=== PATIENT | female | born 1975 | race Caucasian/White ===

== ENCOUNTER 2017-12-07 11:33 | Outpatient (REF) | payer MEDICAID, SELFPAY ==
[2017-12-07 20:36] LABS: Hemoglobin A1C 5.1 % (4.5-6.2)
[2017-12-07 20:37] LABS: ALT 25 U/L (12-78); AST 25 U/L (15-37); Albumin 3.8 g/dL (3.4-5.0); Alkaline Phosphatase 67 U/L (46-116); Anion Gap 7.7 mmol/L (3-11); BUN 12 mg/dL (7-18); Bilirubin, Total 0.6 mg/dL (0.2-1.0); CO2 28.3 mmol/L (21.0-32.0); CREATININE 0.77 mg/dL (0.55-1.02); Calcium 8.6 mg/dL (8.5-10.1); Chloride 105 mmol/L (98-107); Glucose 83 mg/dL (70-100); Potassium 4.5 mmol/L (3.5-5.1); Sodium 141 mmol/L (136-145); TSH 1.27 uIU/mL (0.358-3.74); Total Protein 6.7 g/dL (6.4-8.2)
== END 2017-12-07 11:53 ==
LOC: NCHCN 11:33
PROVIDERS: PCP Family Medicine; Visit Provider Family Medicine
DX: F17.210 Nicotine dependence, cigarettes, uncomplicated (principal); E03.8 Other specified hypothyroidism; E66.3 Overweight
CPT/HCPCS: 80053; 83036; 84443

== ENCOUNTER 2019-09-05 21:52 | Outpatient (REF) | payer MEDICAID, SELFPAY ==
[2019-09-05 21:12] LABS: Hemoglobin A1C 5.3 % (3.8-5.6)
[2019-09-05 21:27] LABS: ALT 43 U/L (14-59); AST 28 U/L (15-37); Albumin 3.8 g/dL (3.4-5.0); Alkaline Phosphatase 70 U/L (46-116); Anion Gap 10.3 mmol/L (3-11); BUN 14 mg/dL (7-18); Bilirubin, Total 0.4 mg/dL (0.2-1.0); CO2 25.7 mmol/L (21.0-32.0); CREATININE 0.81 mg/dL (0.55-1.02); Calcium 8.8 mg/dL (8.5-10.1); Chloride 106 mmol/L (98-107); Glucose 85 mg/dL (74-106); Sodium 142 mmol/L (136-145); TSH 3.94 uIU/mL (0.36-3.74); Total Protein 7.1 g/dL (6.4-8.2)
== END 2019-09-05 22:12 ==
LOC: NCHCN 21:52
PROVIDERS: PCP Family Medicine; Visit Provider Family Medicine
DX: E03.8 Other specified hypothyroidism (principal); E66.3 Overweight
CPT/HCPCS: 80053; 83036; 84443

== ENCOUNTER 2019-12-03 22:44 | Outpatient (REF) | payer MEDICAID, SELFPAY ==
[2019-12-06 16:33] LABS: Patient Race White; SARS-CoV-2 RNA Undetected (Undetected); SARS-CoV-2 Specimen Source Nasopharynx
== END 2019-12-03 23:04 ==
LOC: NCHCN 22:44
PROVIDERS: PCP Family Medicine; Visit Provider Family Medicine
DX: R50.9 Fever, unspecified (principal)
CPT/HCPCS: U0003

== ENCOUNTER 2020-02-04 12:33 | Outpatient (REF) | payer MEDICAID, SELFPAY ==
[2020-02-04 21:28] LABS: TSH 0.65 uIU/mL (0.36-3.74)
== END 2020-02-04 12:53 ==
LOC: NCHCN 12:33
PROVIDERS: PCP Family Medicine; Visit Provider Family Medicine
DX: E03.8 Other specified hypothyroidism (principal)
CPT/HCPCS: 84443

== ENCOUNTER 2020-12-22 15:09 | Outpatient (REF) | payer MEDICAID, SELFPAY ==
[2020-12-22 22:26] LABS: Abs Immature Grans 0.03 10^3/uL (0.0-0.06); Absolute Basophil Count 0.08 10^3/uL (0.0-0.2); Absolute Eosinophil Count 0.23 10^3/uL (0.0-0.7); Absolute Lymphocyte Count 2.28 10^3/uL (1.2-3.4); Absolute Monocyte Count 0.71 10^3/uL (0.1-0.8); Absolute Neutrophil Count 7.17 10^3/uL (1.2-6.7); Basophils % 0.8; Eosinophils % 2.2; HGB 13.1 g/dL (11.2-15.7); Immature Grans % 0.3; Lymphocytes % 21.7; MCH 29.8 pg (27.0-33.0); MCV 93.4 fL (80-95); MPV 10.4 fL (8.0-11.0); Monocytes % 6.8; Neutrophils % 68.2; Nucleated RBC 0 %; Platelet Count 286 10^3/uL (130-400); RBC 4.39 10^6/uL (3.93-5.22); RDW 13.3 % (11.7-14.6); RDW-SD 45.7 fL
[2020-12-22 23:05] LABS: ALT 51 U/L (14-59); AST 23 U/L (15-37); Albumin 4.1 g/dL (3.4-5.0); Alkaline Phosphatase 75 U/L (46-116); Anion Gap 6.1 mmol/L (3-11); BUN 13 mg/dL (7-18); Bilirubin, Total 0.3 mg/dL (0.2-1.0); CO2 29.9 mmol/L (21.0-32.0); CREATININE 0.9 mg/dL (0.55-1.02); Calcium 9.3 mg/dL (8.5-10.1); Chloride 107 mmol/L (98-107); Glucose 84 mg/dL (74-106); Potassium 4.4 mmol/L (3.5-5.1); Sodium 143 mmol/L (136-145); Total Protein 7.8 g/dL (6.4-8.2)
== END 2020-12-22 15:10 | disposition home or self-care (01) ==
LOC: NCHCN 15:09
PROVIDERS: PCP Family Medicine; Visit Provider Family Medicine
DX: R07.89 Other chest pain (principal); E03.9 Hypothyroidism, unspecified; E66.9 Obesity, unspecified
CPT/HCPCS: 80053; 84443; 85025

== ENCOUNTER 2021-11-25 12:24 | Outpatient (REF) | payer MEDICAID, SELFPAY ==
[2021-11-25 15:25] LABS: Hemoglobin A1C 5.3 % (<5.7)
[2021-11-25 15:41] LABS: ALT 26 U/L (14-59); AST 28 U/L (15-37); Albumin 3.9 g/dL (3.4-5.0); Alkaline Phosphatase 99 U/L (46-116); Anion Gap 6.5 mmol/L (3-11); BUN 27 mg/dL (7-18); Bilirubin, Total 0.4 mg/dL (0.2-1.0); CO2 30.5 mmol/L (21.0-32.0); CREATININE 0.8 mg/dL (0.55-1.02); Calcium 9.7 mg/dL (8.5-10.1); Calculated LDL 150 mg/dL (<100); Chloride 103 mmol/L (98-107); Cholesterol 248 mg/dL (<200); Estimated GFR 93.12 (mL/min/1.73m2); Glucose 99 mg/dL (74-106); HDL Cholesterol 83 mg/dL (40-60); Potassium 4.3 mmol/L (3.5-5.1); Sodium 140 mmol/L (136-145); TSH 0.67 uIU/mL (0.36-3.74); Total Protein 7.8 g/dL (6.4-8.2); Triglyceride 75 mg/dL (<150)
== END 2021-11-25 12:25 | disposition home or self-care (01) ==
LOC: NCHCN 12:24
PROVIDERS: PCP Family Medicine; Visit Provider Family Medicine
DX: E03.8 Other specified hypothyroidism (principal); E66.9 Obesity, unspecified
CPT/HCPCS: 80053; 80061; 83036; 84443

== ENCOUNTER 2022-11-22 12:47 | Outpatient (REF) | payer MEDICAID, SELFPAY ==
[2022-11-22 16:11] LABS: ALT 52 U/L (14-59); AST 27 U/L (15-37); Albumin 3.9 g/dL (3.4-5.0); Alkaline Phosphatase 69 U/L (46-116); Anion Gap 9.1 mmol/L (3-11); BUN 14 mg/dL (7-18); Bilirubin, Total 0.8 mg/dL (0.2-1.0); CO2 26.9 mmol/L (21.0-32.0); CREATININE 0.9 mg/dL (0.55-1.02); Calcium 9.2 mg/dL (8.5-10.1); Chloride 100 mmol/L (98-107); Estimated GFR 80.34 (mL/min/1.73m2); Glucose 96 mg/dL (74-106); Potassium 4.1 mmol/L (3.5-5.1); Sodium 136 mmol/L (136-145); TSH 9.27 uIU/mL (0.36-3.74); Total Protein 7.6 g/dL (6.4-8.2)
[2022-11-22 16:54] LABS: Hemoglobin A1C 5.5 % (<5.7)
== END 2022-11-22 12:48 | disposition home or self-care (01) ==
LOC: NCHCN 12:47
PROVIDERS: PCP Family Medicine; Visit Provider Family Medicine
DX: E03.8 Other specified hypothyroidism (principal); E66.8 Other obesity; Z13.1 Encounter for screening for diabetes mellitus
CPT/HCPCS: 80053; 83036; 84443

== ENCOUNTER 2023-01-17 13:31 | Outpatient (REF) | payer MEDICAID, SELFPAY ==
[2023-01-17 15:10] LABS: Calculated LDL 130 mg/dL (<100); Cholesterol 194 mg/dL (<200); HDL Cholesterol 46 mg/dL (40-60); TSH 2.88 uIU/mL (0.36-3.74); Triglyceride 91 mg/dL (<150)
== END 2023-01-17 13:32 | disposition home or self-care (01) ==
LOC: NCHCN 13:31
PROVIDERS: PCP Family Medicine; Visit Provider Family Medicine
DX: E03.8 Other specified hypothyroidism (principal); E66.9 Obesity, unspecified; Z13.220 Encounter for screening for lipoid disorders
CPT/HCPCS: 80061; 84443

== ENCOUNTER 2023-01-24 16:55 | Outpatient (REF) | payer MEDICAID, SELFPAY ==
[2023-01-24 20:53] LABS: HCT 40.7 % (36.0-46.0); HGB 13.1 g/dL (11.2-15.7); MCH 30.5 pg (27.0-33.0); MCHC 32.2 % (32.0-36.0); MCV 95 fL (80-95); Platelet Count 248 10^3/uL (130-400); RDW 13.5 % (11.7-14.6); RDW-SD 47.3 fL; WBC 9.47 10^3/uL (4.4-10.8)
[2023-01-24 21:30] LABS: Hemoglobin A1C 5.5 % (<5.7)
[2023-01-24 21:33] LABS: ALT 45 U/L (14-59); AST 29 U/L (15-37); Alkaline Phosphatase 69 U/L (46-116); Anion Gap 10.8 mmol/L (3-11); BUN 18 mg/dL (7-18); Bilirubin, Total 0.6 mg/dL (0.2-1.0); CO2 24.2 mmol/L (21.0-32.0); CREATININE 0.8 mg/dL (0.55-1.02); Calcium 9.4 mg/dL (8.5-10.1); Chloride 104 mmol/L (98-107); Estimated GFR 92.54 (mL/min/1.73m2); Glucose 79 mg/dL (74-106); Potassium 4.2 mmol/L (3.5-5.1); Sodium 139 mmol/L (136-145); Vitamin B12 459 pg/mL (193-986)
== END 2023-01-24 16:56 | disposition home or self-care (01) ==
LOC: NCHCN 16:55
PROVIDERS: PCP Family Medicine; Visit Provider Family Medicine
DX: G62.9 Polyneuropathy, unspecified (principal); E03.8 Other specified hypothyroidism; E78.5 Hyperlipidemia, unspecified
CPT/HCPCS: 80053; 85027; 82607; 83036

== ENCOUNTER 2023-12-05 14:50 | Outpatient (REF) | payer MEDICAID, SELFPAY ==
--- NOTE | 2023-12-05 10:15 | PAPFT_PTH ---
PATIENT: Jennifer Jimenez LOC: [facility] U#:[id number] AGE/SX: 48/F ROOM: RE12/05/[address]: Camille Aldrich : 1975 BED: DIS: 12/05/2023 SPEC #: [id number] RECD: 12/05/23 18:14 STATUS: TYESHAKelsea REQ #: [id number] REMI: 12/05/23 10:[address]: Camille Aldrich DEPT: [facility], [facility] Cytology RECD BY: Jazmine Hernandez ENTERED: 12/05/23 18:15 SP TYPE: PAPFT OTHR DR: Judie Potter Tissues: 1 - CX/ENDOCX FOR PAP SMEARS Procedures: PAP THIN PREP/[facility] Screening HPV DNA PROBE Comments: [id number] (HPV 16 & 18/45)
--- OUTSIDE RECORDS SUMMARY | 2023-12-05 14:52 | XMS_ITS | Clinical Summary ---
Author Organization [facility] [place] [address] Care Team Providers Care Sugar Plantation Manager Name Role Phone Lorene Aldrich MD Primary Care Provider Allergies Active Allergy Reactions Criticality Noted Date Comments Adhesive Tape Other (See Comments) Medium Use paper tape Carrot Hives High Warfarin Medium 06/08/2018 Latex 06/11/2018 Latex, Natural Rubber Hives 02/09/2011 Medications Medication Sig Dispensed Refills Start Date End Date Status SUBOXONE 8-2 mg Film 12 mg. 0 06/02/2015 Active PROAIR HFA 90 mcg/actuation HFA Aerosol Inhaler 0 05/29/2015 Active aspirin 81 mg Tablet, Delayed Release (E.C.) Take 81 mg by mouth daily. Active PULMICORT FLEXHALER 180 mcg/actuation Aerosol Powdr Breath Activated INHALE 1 PUFFS BY MOUTH TWICE DAILY. 0 05/17/2018 Active fluticasone propionate (FLONASE) 50 mcg/actuation [place], Suspension SHAKE LQ AND U 2 SPRAYS IEN D 09/02/2019 Active cetirizine (ZyrTEC) 10 mg Tablet TK 1 T PO D FOR ALLERGIES 07/30/2019 Active levothyroxine (SYNTHROID) 137 mcg Tablet TK 1 T PO D 09/10/2019 Active Advair HFA 230-21 mcg/actuation inhaler (HFA) Inhale 2 puffs into the lungs 2 times daily. Active montelukast (Singulair) 10 mg tablet Take 10 mg by mouth nightly. Active naproxen sodium (ALEVE) 220 mg Capsule Take 440 mg by mouth daily. Active pregabalin (Lyrica) 100 mg capsule Take 1 capsule by mouth 2 times daily. 60 capsule 3 08/17/2023 Active Active Problems Problem Noted Date Diagnosed Date Acute exacerbation of chronic obstructive airway s disease 01/16/2016 Recurrent deep vein thrombosis (DVT) 09/16/2015 S/P IVC filter 09/16/2015 Tobacco use 09/16/2015 Grave's disease-treated 03/24/2009 Hypothyroidism-after 131 dye 03/24/2009 Encounters Date Type Department Care Team Description 11/19/2023 Travel from Last 3 Months Immunizations Name Administration Dates Next Due Influenza Vaccine, Whole 12/18/2008 Social History Tobacco Use Types Packs/Day Years Used Date Smoking Tobacco: Every Day Cigarettes 1.5 29 Smokeless Tobacco: Never Tobacco Cessation:Ready to Q uit: No; Counseling Given: No Alcohol Use Standard Drinks/Week Comments No 0 (1 standard drink = 0.6 oz pur e alcohol) Sex and Gender Information Value Date Recorded Sex Assigned at Female 11/19/2023 10:16 AM EDT Gender Identity Female 11/19/2023 10:16 AM EDT Sexual Orientation Not on file Last Filed Vital Signs Vital Sign Reading Time Taken Comments Blood Pressure 123/62 08/17/2023 9:00 AM EDT Pulse 97 08/17/2023 9:00 AM EDT Temperature 36.5 ??C (97.7 ??F) 06/20/2018 10:31 AM E DT Respiratory Rate 20 06/20/2018 10:31 AM EDT Oxygen Saturation 96% 06/20/2018 10:31 AM EDT Inhaled Oxygen Concentration - - Weight 95.3 kg (210 lb 3.2 oz) 08/17/2023 9:00 A M EDT Height 160.7 cm (5' 3.25) 08/17/2023 9:00 AM ED T Body Mass Index 36.94 08/17/2023 9:00 AM EDT Plan of Treatment Health Maintenance Due Date Last Done Comments CT Colonography 1975 Colonoscopy 1977 Colorectal Cancer Screening 1975 FIT DNA 1977 FIT 1975 Sigmoidoscopy (10 year) with FIT yearly 1975 Sigmoidoscopy 1975 Pneumococcal Vaccine: At-Ris k 5-64yrs (1 of 2 - PCV) 07/17/1983 Lipid Screening 07/17/1995 Hepatitis B vaccine (0-59 yrs) (1) 1996 Tdap adult 1996 Tetanus vaccine 1996 HPV test 07/17/2007 PAP Smear 07/17/2007 Breast Cancer Share Decision Needed 2017 Breast Cancer screening 2017 Covid-19 Vaccine ( - season) 2023 Influenza (Flu) vaccine (1 o f 1 - Influenza standard series) 11/19/2023 12/18/2008 Diabetes Screening (HgbA1C or Glucose) 08/16/2026, 08/17/2023 HIV screen Completed 08/17/2023 Hepatitis C Screening Completed 08/17/2023 Procedures Procedure Name Priority Date/Time Associated Diagnosis Comments HIV SCREEN, 4TH GENERATION ([facility]/CGP/APD/NLH) Routine 08/17/2023 10:53 AM EDT Peripheral polyneuropathy HEPATITIS C ANTIBODY Routine 08/17/2023 10:53 AM EDT Peripheral polyneuropathy COMPREHENSIVE METABOLIC PANEL Routine 08/17/2023 10:53 AM EDT Peripheral polyneuropathy from Last 3 Months or Most Recently Relevant to Health Maintenance Results * Hepatitis C Antibody (08/17/2023 10:53 AM EDT) Hepatitis C Antibody Negative Negative [facility] Blood 08/17/2023 10:5 3 AM EDT 08/17/2023 10:59 AM EDT Narrative Resulting Agency Comment Spec In Lab Jamison Fuentes MD CHEMISTRY ORDERABLES [facility] [place] [address] * HIV Screen, 4th Generation ([facility]/CGP/APD/NLH) (08/17/2023 10:53 AM EDT) HIV Ab/Ag Screen Negative Negative [facility] Comment: This 4th Generation HIV test screens for the presence of the HIV-1 p24 antigen as well as antibodies reactive against HIV-1 and HIV-2. A negative screen does not rule out an acute HIV infection. If acute HIV infection is suspected, testing should be repeated in 2 - 3 weeks or HIV nucleic acid testing performed. HIV Comment Low Risk of HIV Infection [facility] Blood 08/17/2023 10:5 3 AM EDT 08/17/2023 10:59 AM EDT Narrative Resulting Agency Comment Spec In Lab Jamison Fuentes MD CHEMISTRY ORDERABLES [facility] [place] [address] * (ABNORMAL) Comprehensive metabolic panel (non-fasting) (08/17/2023 10:53 AM EDT) Glucose 93 65 - 199 mg/dL [facility] Comment:Diabetes: >=200 mg/d L plus symptoms Blood Urea Nitrogen 16 8 - 18 mg/dL [facility] Creatinine 0.67(L) 0.70 - 1.20 mg/dL [facility] Sodium 139 135 - 145 mmol/L [facility] Potassium 3.9 3.5 - 5.0 mmol/L [facility] Comment: Please note: ??Patients with WBC >100,000 may have falsely elevated Potassium levels. ??For accurate Potassium quantification in these patients send serum separator tube (gold top) for subsequent determinations. ??Contact the Clinical Chemistry Laboratory if there are any questions. Chloride 106 98 - 107 mmol/L [facility] Carbon Dioxide 22 22 - 31 mmol/L [facility] Anion Gap 11 5 - 15 mmol/L [facility] Calcium 9.3 8.5 - 10.5 mg/dL [facility] Protein, Total 7.0 6.1 - 8.0 g/dL [facility] Albumin 4.5 3.2 - 5.2 g/dL [facility] Aspartate Aminotransferase 26 0 - 30 unit/L [facility] Alanine Aminotransferase 36(H) 0 - 30 unit/L [facility] Alkaline Phosphatase 71 35 - 105 unit/L [facility] Bilirubin, Total 0.6 0.2 - 1.3 mg/dL [facility] Est Glomerular Filtration Rate 109 >=60 mL/min/1. 73 m?? [facility] Comment: This patient's estimated GFR was calculated using the 2020 CKD-EPI equation. The estimated GFR can vary from the measured GFR by up to 30% in the absence of rapidly changing kidney function. Assessment of the estimated GFR is not appropriate when creatinine concentrations are rapidly changing. For clinical situations in which a more precise estimate of GFR is necessary, consider alternative methods of GFR estimation such as a 24-hour urine creatinine clearance. Assignment of CKD stage 1-5 for patients with an eGFR near the transition point between stages may be based on clinical assessment of muscle mass and symptoms in addition to eGFR. Blood 08/17/2023 10:5 3 AM EDT 08/17/2023 10:59 AM EDT Narrative Resulting Agency Comment Spec In Lab Jamison Fuentes MD CHEMISTRY ORDERABLES [facility] [place] [address] from Last 3 Months or Most Recently Relevant to Health Maintenance Advance Directives Documents on File Type Date Recorded Patient Banana Carrier Expl anation Advance Directives and Livin g Will 05/19/2010 10:25 AM Care Teams Sugar Plantation Manager Relationship Specialty Start Date End Date Lorene Aldrich MD [address] [place] [address] PCP - General Family Medicine 06/12/15
--- OUTSIDE RECORDS SUMMARY | 2023-12-05 14:52 | XMS_ITS | Encounter Summary ---
[place] [address] Care Team Providers Care Banking Representative Name Role Phone Lorene Aldrich MD Primary Care Provider Encounter Details Date Type Department Care Team (Latest Contact Info) Description 08/17/2023 Travel Social History Tobacco Use Types Packs/Day Years Used Date Smoking Tobacco: Every Day Cigarettes 1.5 29 Smokeless Tobacco: Never Alcohol Use Standard Drinks/Week Comments No 0 (1 standard drink = 0.6 oz pur e alcohol) Sex and Gender Information Value Date Recorded Sex Assigned at Female 11/19/2023 10:16 AM EDT Gender Identity Female 11/19/2023 10:16 AM EDT Sexual Orientation Not on file documented as of this encounter Plan of Treatment Not on file documented as of this encounter Visit Diagnoses Not on filedocumented in this encounter Care Teams Banking Representative Relationship Specialty Start Date End Date Lorene Aldrich MD [address] [place] [address] PCP - General Family Medicine 06/12/15 documented as of this encounter
--- OUTSIDE RECORDS SUMMARY | 2023-12-05 14:52 | XMS_ITS ---
Author Organization Unknown Address [address] [place] [phone] Phone Care Team Providers Care Feather Separator Name Role Phone WAYLON Roy Attending Unavailable Results CT CHEST WO CONTRAST - Compl eted: 01/06/2022 08:19 [facility] [place], [place] [address] PACS RAG INSPECTOR REPORT Patient Name: CHANG WORTHY MRN: Sex: : Age: [id number] F [id number] Account: Accession: Admit: StayType: [id number] 01/06/2022 O/P Ordered: Order ID: Entered Order: Ordering Provider: 01/06/2022 08:02 [id number] NLS PUMA CONNORS Completed: Tech Completed: Resulted DTTM: 01/06/2022 08:19 JJ 01/06/2022 09:46 Study Description: CT CHEST WO CONTRAST Study Reason: PULMONARY NODULE TECHNIQUE: Multi planar reconstructions were performed. CONTRAST MATERIAL None COMPARISON: No exams were available for comparison FINDINGS: CHEST: LUNGS: There are no pulmonary infiltrates no pleural effusions. There are no significant pulmonary nodules evident. There are no significant focal findings in the trachea and mainstem bronchi. No bronchiectasis. MEDIASTINUM: There is no hilar nor mediastinal adenopathy. Visualized thyroid is diminutive. CARDIAC: Heart size is normal. There is no pericardial effusion.Caliber of the thoracic aorta is within normal limits. VISUALIZED UPPER ABDOMEN: No adrenal masses. No splenomegaly. There is an IVC filter noted, only partially included in the [id number]-gu-axbd of this chest. OSSEOUS: No significant osseous lesions. IMPRESSION: 1. No significant pulmonary findings. No pleural effusions. 2. No intrathoracic adenopathy. 3. IVC filter incidentally noted Report Digitally Signed by Daniel Bryant on 01/06/2022 09:46 AM EDT Social History Type Status Start Date End Date Code Code Syst em Smoking History Current every day smoker [id number] SNOMED CT Sex Female Hospital Discharge Instructions Should you have any questions prior to discharge, please contact a member of your healthcare team. If you have left the hospital and have any questions, please contact your primary care physician. Reason For Referral No Data Found Problems Problem Start Date Resolved Date Status Code Code System ASTHMA 02/28/2021 resolved [id number] SNOMED-CT COPD 02/28/2021 resolved [id number] SNOMED-CT Allergies and Adverse Reactions Allergy Substance Reaction Severity Start Date Concern Status Co de Code System LATEX Active Carrots Active Plan of Treatment CT CHEST W/O CONTRAST 01/06/2022 Encounters Encounter Diagnosis Start Date Code Code Sys tem Solitary pulmonary nodule 01/06/2022 SN OMED-CT Personal Care Team Section Performer Name Performer Role Active Date Inactive Da te
--- OUTSIDE RECORDS SUMMARY | 2023-12-05 14:52 | XMS_ITS ---
Author Organization Unknown Address [address] [place] [phone] Phone Care Team Providers Care Child Support Investigator Name Role Phone RAYA GARCIA Registered Nurse Unavailable JOAQUIM Knight Attending Unavailable [facility] Unavailable WAYLON Roy Primary Unavailable UNLISTED PROVIDER - REQUESTED Xhandoff Un available Results CBC W/ DIFFERENTIAL* - Colle ct Date/Time: 02/28/2021 20:29 [facility] ID: [id number] [address] [place], [place], [address] LOINC: 07609-0 Test Value Unit Reference Range Code Code System Flag WBC 9.54 th/cmm L=5.00 H=10.00 6690-2 LOINC NEUT % 68.7 % L=40.0 H=80.0 LYMPH % 22.0 % L=10.0 H=50.0 MONO % 6.2 % L=2.0 H=12.0 77396-7 LOINC EOS % 2.1 % L=0.0 H=8.0 BASO % 0.8 % L=0.0 H=3.0 IG % 0.2 % L=0.0 H=1.1 2514-8 LOINC NRBC % 0.0 % L=0.0 H=0.0 77446-0 LOINC NEUT abs count 6.6 th/cmm L=1.6 H=8.4 751-8 LOINC LYMPH abs count 2.1 th/cmm L=1.5 H=4.0 731-0 LOINC MONO abs count 0.6 th/cmm L=0.2 H=1.0 742-7 LOINC EOS abs count 0.2 th/cmm L=0.0 H=0.5 711-2 LOINC BASO abs count 0.1 th/cmm L=0.0 H=0.2 704-7 LOINC IG abs count 0.0 th/cmm L=0.0 H=0.1 27876-4 LOINC NRBC abs count 0.0 mil/cmm L=0.0 H=0.0 41515-3 LOINC RBC 4.58 mil/cmm L=3.90 H=5.40 789-8 LOINC HEMOGLOBIN 13.6 gm/dL L=12.0 H=16.0 718-7 LOINC HEMATOCRIT 42 % L=37 H=47 4544-3 LOINC MCV 92 fL L=82 H=92 787-2 LOINC MCH 29.7 pg L=27.0 H=31.0 785-6 LOINC MCHC 32.2 % L=32.0 H=36.0 786-4 LOINC RDW-SD 45.7 fL L=39.0 H=49.0 788-0 LOINC PLATELET COUNT 263 th/cmm L=150 H=450 777-3 LOINC BASIC METABOLIC PANEL (BMP) - Collect Date/Time: 02/28/2021 20:29 [facility] ID: [id number] [address] [place], [place], [address] LOINC: 50412-4 Test Value Unit Reference Range Code Code System Flag GLUCOSE 113 mg/dL L=70 H=116 2345-7 LOINC BUN 10 mg/dL L=6 H=25 3094-0 LOINC CREATININE 0.92 mg/dL L=0.51 H=0.95 2160-0 LOINC SODIUM SERUM 140 mmol/L L=136 H=145 2951-2 LOINC POTASSIUM SERUM 3.8 mmol/L L=3.4 H=5.2 2823-3 LOINC CHLORIDE SERUM 107 mmol/L L=96 H=110 2075-0 LOINC CARBON DIOXIDE (CO2) 23 mmol/L L=22 H=34 2028-9 LOINC ANION GAP 10.3 mmol/L 59375-9 LOINC CALCIUM SERUM 9.2 mg/dL L=8.2 H=10.2 88237-6 LOINC AGE 45 years eGFR (non-Afr.Amer.) 67 mL/min 74308-0 LOINC eGFR (Afr-Welsh) 81 mL/min 85151-7 LOINC ALCOHOL (ETHANOL)* - Collect Date/Time: 02/28/2021 20:29 [facility] ID: [id number] [address] [place], [place], [address] LOINC: 03691-8 Test Value Unit Reference Range Code Code System Flag ALCOHOL (ETHANOL) 190 mg/dL 39155-0 LOINC [facility] COVID RHEONIX* - Shahida ect Date/Time: 02/28/2021 20:05 [facility] ID: [id number] [address] [place] [address], [id number] LOINC: 86818-8 Test Value Unit Reference Range Code Code System Flag SOURCE= Anterior nasal Tier- SYMPTOMS SARS COV2 RNA: NEGATIVE REFERENCE RANGE: NEGAT 67384-[address] ANGIOGRAPHY NECK WWO CONT RAST - Completed: 02/28/2021 21:25 LOINC: Radiation optimization: All CT scans at this facility use at least one of these dose optimization techniques: automated exposure control; mA and/or kV adjustment per patient size (includes targeted exams where dose is matched to clinical indication); or iterative reconstruction. CT ANGIOGRAPHY OF THE NECK Routine examination was performed. There are no priors for comparison. The visualized portions of the pulmonary arteries and thoracic aorta are unremarkable. The common carotid arteries show no evidence of dissection, occlusion or significant stenosis. The external carotid arteries are unremarkable without evidence of occlusion or significant stenosis. The internal carotid arteries are unremarkable without evidence of dissection, occlusion or significant stenosis. The vertebral arteries and visualized portion of the basilar artery are unremarkable without evidence of dissection, aneurysm, occlusion or significant stenosis. The visualized orbits are unremarkable. The soft tissues of the neck are unremarkable. The visualized portions of the thyroid gland are unremarkable. The lung apices are clear. The visualized portions of the cervical spine is unremarkable. No acute fracture or subluxation is identified. IMPRESSION: No evidence of arterial injury on the CT angiography of the neck. Dictated by: TAY GIPSON MD Transcribed by: [facility] 03/01/21:40 D 03/01/2021 09:25:45 [id number] Electronically Reviewed and Signed By: TAY GIPSON MD 03/01/21 13:36 Copy for: [facility] IN[facility] MGMT DISCHAR[address]ED [address] HEAD BRAIN WO DYE - Compl eted: 02/28/2021 21:23 LOINC: NON-CONTRAST CRANIAL CT: There are no priors. There is patient motion artifact. The ventricular system is normal in appearance. There is no evidence of an epidural, subdural, intraparenchymal or subarachnoid hemorrhage. No focal area of decreased attenuation is seen. CONCLUSION: Normal non-contrast cranial CT. Dictated by: [facility] TAY GIPSON MD Transcribed by: [facility] 03/01/21:33 D 03/01/2021 09:21:32 [id number] Electronically Reviewed and Signed By: TAY GIPSON MD 03/01/21 13:36 Copy for: 185 HEALTH INFORMATION MGMT DISCHAR[address] MAXILLOFACIAL WO DYE - Co mpleted: 02/28/2021 21:24 LOINC: Radiation optimization: All CT scans at this facility use at least one of these dose optimization techniques: automated exposure control; mA and/or kV adjustment per patient size (includes targeted exams where dose is matched to clinical indication); or iterative reconstruction. MAXILLOFACIAL CT Routine noncontrast examination was performed. There are no priors for comparison. There is no evidence of a facial fracture. The orbits and retro-orbital soft tissues are unremarkable. Minimal right periorbital soft tissue swelling is present. There is a small fluid level in the left sphenoid sinus. The remaining visualized paranasal sinuses and mastoid air cells are clear. Note is made of a metal bar piercing the tongue. The temporomandibular joints are unremarkable. IMPRESSION: No acute facial fracture. Dictated by: TAY GIPSON MD Transcribed by: [facility] 03/01/21:35 D 03/01/2021 09:24:42 [id number] Electronically Reviewed and Signed By: TAY GIPSON MD 03/01/21 13:36 Copy for: 185 HEALTH INFORMATION MGMT DISCHARGED Social History Type Status Start Date End Date Code Code Syst em Smoking History Current every day smoker 873900590 SNOMED CT Sex Female Vital Signs Vital Sign Value Unit Carson Value Carson Unit Date/Time Recent/Initial? Code Code System Body Mass Index 31.89 kg/m2 02/28/2021 19:50 Initial 24965 -5 LOINC Systolic Blood Pressure 125 mm[Hg] 02/28/2021 21:52 Most Recent 8480- 6 LOINC Diastolic Blood Pressure 79 mm[Hg] 02/28/2021 21:52 Most Recent 8462- 4 LOINC Systolic Blood Pressure 130 mm[Hg] 02/28/2021 19:50 Initial 8480- 6 LOINC Diastolic Blood Pressure 71 mm[Hg] 02/28/2021 19:50 Initial 8462- 4 LOINC Body Surface Area 1.91 m2 02/28/2021 19:50 Initial 3140- 1 LOINC Height 160.020 0 cm 63.00 in 02/28/2021 19:50 Initial 8302- 2 LOINC O2 Saturation 96 % 2020 21:52 Most Recent 54896 -5 LOINC O2 Saturation 100 % 2020 19:50 Initial 99050 -5 LOINC Pulse 97.0 /min 02/28/2021 21:52 Most Recent 8867- 4 LOINC Pulse 108.0 /min 02/28/2021 19:50 Initial 8867- 4 LOINC Respiration 18 /min 02/29/20 21:52 Most Recent 9279- 1 LOINC Respiration 20 /min 02/29/20 19:50 Initial 9279- 1 LOINC Temperature 36.7 Lisseth 98.1 F 02/29/20 19:50 Initial 8310- 5 LOINC Weight 81.65 kg 180.00 lbs 02/28/2021 19:50 Initial 23785 -7 LOINC Hospital Discharge Instructions Should you have any questions prior to discharge, please contact a member of your healthcare team. If you have left the hospital and have any questions, please contact your primary care physician. Reason For Referral No Data Found Problems Problem Start Date Resolved Date Status Code Code System ASTHMA 02/28/2021 resolved [id number] SNOMED-CT COPD 02/28/2021 resolved 65441331 SNOMED-CT Allergies and Adverse Reactions Allergy Substance Reaction Severity Start Date Concern Status Co de Code System LATEX Active Carrots Active Plan of Treatment CT CHEST W/O CONTRAST 01/06/2022 Encounters Encounter Diagnosis Start Date Code Code Sys tem Laceration without foreign b heidi of oral cavity, initial encounter 02/28/2021 SNOMED-CT Personal Care Team Section Performer Name Performer Role Active Date Inactive Da te
--- OUTSIDE RECORDS SUMMARY | 2023-12-05 14:52 | XMS_ITS | Encounter Summary ---
[place] [address] Care Team Providers Care Research Interviewer Name Role Phone Lorene Aldrich MD Primary Care Provider Encounter Details Date Type Department Care Team (Latest Contact Info) Description 11/19/2023 Travel Social History Tobacco Use Types Packs/Day [...] on filedocumented in this encounter Care Teams Research Interviewer Relationship Specialty Start Date End Date Lorene Aldrich MD [address] [place] [address] PCP - General Family Medicine 06/12/15 documented as of this encounter
--- OUTSIDE RECORDS SUMMARY | 2023-12-05 14:52 | XMS_ITS | Encounter Summary ---
[place] [address] Care Team Providers Care [employer] Sales Representative Name Role Phone Lorene Aldrich MD Primary Care Provider [phone] Encounter Details Date Type Department Care Team (Latest Contact Info) Description 08/17/2023 11:15 AM EDT Laboratory Appointment Lab [address] [place] [address] Peripheral polyneuropathy Social History Tobacco Use Types Packs/Day Years [...] on file documented as of this encounter Progress Notes * Jamison Fuentes MD - 08/17/2023 11:15 AM EDT Lab work ordered at last visit was reviewed. Notable for: - CRP 11.4 (08/17/23 Remainder of labs sent were normal and reassuring. 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 documented in this encounter Plan of Treatment Not on file documented as of this encounter Procedures Procedure Name Priority Date/Time Associated Diagnosis Comments TSH CASCADE Routine 08/17/2023 10:53 AM EDT Peripheral polyneuropathy CRP, ACUTE INFLAMMATION Routine 08/17/2023 10:53 AM EDT Peripheral polyneuropathy MYELIN ASSOCIATED GLYCOPROTEIN AB WITH REFLEX Routine 08/17/2023 10:53 AM EDT Peripheral polyneuropathy LYME IGG & IGM ANTIBODY Routine 08/17/2023 10:53 AM EDT Peripheral polyneuropathy EXTRACTABLE NUCLEAR ANTIGEN (ZAC) AB Routine 08/17/2023 10:53 AM EDT Peripheral polyneuropathy GANGLIOSIDE ANTIBODIES Routine 10:53 AM EDT Peripheral polyneuropathy HEMOGRAM Routine 08/17/2023 10:53 AM EDT Peripheral polyneuropathy DIFFERENTIAL, AUTOMATED Routine 08/17/2023 10:53 AM EDT Peripheral polyneuropathy VITAMIN B1, WHOLE BLOOD Routine 08/17/2023 10:53 AM EDT Peripheral polyneuropathy HEPATITIS C ANTIBODY Routine 08/17/2023 10:53 AM EDT Peripheral polyneuropathy CRYOGLOBULIN Routine 08/17/2023 10:53 AM EDT Peripheral polyneuropathy HEPATITIS B CORE ANTIBODY, TOTAL Routine 08/17/2023 10:53 AM EDT Peripheral polyneuropathy HEAVY METALS SCREEN, BLOOD Routine 08/17/2023 10:53 AM EDT Peripheral polyneuropathy HIV SCREEN, 4TH GENERATION (MC/CGP/APD/NLH) Routine 08/17/2023 10:53 AM EDT Peripheral polyneuropathy HEPATITIS B SURFACE ANTIBODY Routine 08/17/2023 10:53 AM EDT Peripheral polyneuropathy HEPATITIS B SURFACE ANTIGEN Routine 08/17/2023 10:53 AM EDT Peripheral polyneuropathy SEDIMENTATION RATE Routine 08/17/2023 10 :53 AM EDT Peripheral polyneuropathy CBC (WITH DIFF) Routine 08/17/2023 10:53 AM EDT Peripheral polyneuropathy ANGIOTENSIN CONVERTING ENZYME Routine 08/17/2023 10:53 AM EDT Peripheral polyneuropathy HC DNA AB DS (ALLAKAKET) Routine 08/17/2023 10:53 AM EDT Peripheral polyneuropathy VITAMIN B6 Routine 08/17/2023 10:53 AM EDT Peripheral polyneuropathy HC SERUM PROT. ELECTROPHORESIS Routine 08/17/2023 10:53 AM EDT Peripheral polyneuropathy HEMOGLOBIN A1C Routine 08/17/2023 10:53 AM EDT Peripheral polyneuropathy VITAMIN B12 Routine 08/17/2023 10:53 AM EDT Peripheral polyneuropathy COMPREHENSIVE METABOLIC PANEL Routine 08/17/2023 10:53 AM EDT Peripheral polyneuropathy documented in this encounter Results * Differential, Automated (08/17/2023 10:53 AM EDT) Neutrophil % 67.1 % [facility] Neutrophil Absolute 6.07 1.70 - 6.10 x10(3)/[facility] Lymph % 22.5 % [facility] Lymphocytes Abs 2.0 0.9 - 3.2 x10(3)/[facility] Monocyte % 7.0 % [facility] Monocyte Abs 0.6 0.3 - 0.9 x10(3)/[facility] Eos % 2.4 % [facility] Eosinophils Abs 0.2 0.0 - 0.4 x10(3)/[facility] Basophil % 0.7 % [facility] Baso Absolute 0.1 0.0 - 0.1 x10(3)/[facility] Immature Gran % 0.30 % [facility] Comment: Immature granulocytes(IG's)percentage and absolute count will include metamyelocytes, myelocytes, and promyelocytes. Blood smears from CBCs yielding IG's will be scanned manually for concordance. If this scan disagrees with the automated IG or if promyelocytes are noted, a manual differential will be performed. Immature Gran Absolute 0.03 0.00 - 0.04 x10(3)/[facility] Blood 08/17/2023 10:5 3 AM EDT 08/17/2023 10:59 AM EDT Narrative Resulting Agency Comment Spec In Lab Jamison Fuentes MD HEMATOLOGY ORDERABLE S Performing Organization Address City/State/[facility] Co de Phone Number [facility] [place] [address] * (ABNORMAL) Hemogram (08/17/2023 10:53 AM EDT) White Blood Cell 9.0 4.0 - 9.5 x10(3)/ L [facility] Red Blood Cell 4.15 4.00 - 5.21 x10(6)/ L [facility] Hemoglobin 12.6 11.7 - 15.5 g/dL [facility] Hematocrit 39.3 35.7 - 45.8 % [facility] Mean Cell Volume 94.7(H) 82.6 - 94.4 fL [facility] Mean Cell Hemoglobin 30.4 27.1 - 32.0 pg [facility] Mean Cell Hemoglobin Concentration 32.1 31.7 - 35.0 g/dL [facility] Platelet 229 145 - 357 x10(3)/ L [facility] RDW Standard Deviation 47.1(H) 37.0 - 46.0 fL [facility] RDW coefficient of variation 13.5 11.5 - 14.1 % [facility] Mean Platelet Volume 9.8 7.6 - 12.9 fL [facility] NRBC% auto 0.0 % [facility] NRBC Absolute 0.000 0.000 - 0.000 x10(3)/mc L [facility] Blood 08/17/2023 10:5 3 AM EDT 08/17/2023 10:59 AM EDT Narrative Resulting Agency Comment Spec In Lab Jamison Fuentes MD HEMATOLOGY ORDERABLE S Performing Organization Address [facility] de Phone Number [facility] [place] [address] * Hemoglobin A1c (08/17/2023 10:53 AM EDT) Hemoglobin A1c 5.3 4.3 - 5.6 % [facility] Comment: Reference Range: 4.3 - 5.6% 5.7 - 6.4% - Increased Risk of Developing Diabetes Mellitus >= 6.5% - Consistent with diagnosis of Diabetes Mellitus In the absence of hyperglycemia (i.e. plasma glucose > 200 mg/dL) or classic symptoms of hyperglycemia a repeat measurement of HbA1c should be performed on a separate sample to confirm the diagnosis. Diagnosis and Classification of Diabetes Mellitus, Diabetes Care 2013; 36: Suppl. 1, I11-29 Estimated Average Glucose 106 mg/dL [facility] Blood 08/17/2023 10:5 3 AM EDT 08/17/2023 10:59 AM EDT Narrative Resulting Agency Comment Spec In Lab Jamison Fuentes MD CHEMISTRY ORDERABLES Performing Organization Address [facility] Co de Phone Number [facility] [place] [address] * TSH [place] (08/17/2023 10:53 AM EDT) Thyroid Stimulating Hormone 1.06 0.27 - 4.20 mcIU/mL [facility] Comment: Reference Interval (mcIU/mL): Females: ??First Trimester: 0.23-3.88 ??Second Trimester: 0.22-3.90 ??Third Trimester: 0.44-4.66 Blood 08/17/2023 10:5 3 AM EDT 08/17/2023 10:59 AM EDT Narrative Resulting Agency Comment Spec In Lab Jamison Fuentes MD CHEMISTRY ORDERABLES Performing Organization Address City/[facility]/ZIP Co de Phone Number [facility] [place] [address] * Sedimentation rate (08/17/2023 10:53 AM EDT) [facility] Sedimentation Rate Automated 31 2 - 37 mm/hr [facility] Comment: Effective February 27, 2019 new capillary photometric technology has resulted in a change in reference ranges. It is recommended that each ESR result be reviewed with its own age appropriate reference range. Blood 08/17/2023 10:5 3 AM EDT 08/17/2023 10:59 AM EDT Narrative Resulting Agency Comment Spec In Lab Jamison Fuentes MD HEMATOLOGY ORDERABLE S Performing Organization Address [facility]/ZIP Co de Phone Number [facility] [place] [address] * (ABNORMAL) CRP, acute inflammation (08/17/2023 10:53 AM EDT) [facility] C-Reactive Protein 11.4(H) <=4.9 mg/L [facility] Blood 08/17/2023 10:5 3 AM EDT 08/17/2023 10:59 AM EDT Narrative Resulting Agency Comment Spec In Lab Jamison Fuentes MD CHEMISTRY ORDERABLES Performing Organization Address City/[facility]/ZIP Co de Phone Number [facility] [place] [address] * (ABNORMAL) Comprehensive metabolic panel (non-fasting) (08/17/2023 10:53 AM EDT) Glucose 93 65 - 199 mg/dL [facility] Comment:Diabetes: >=200 mg/d L plus symptoms Blood Urea Nitrogen 16 8 - 18 mg/dL [facility] Creatinine 0.67(L) 0.70 - 1.20 mg/dL [facility] Sodium 139 135 - 145 mmol/L [facility] Potassium 3.9 3.5 - 5.0 mmol/L [facility] Comment: Please note: ??Patients with WBC >100,000 may have falsely elevated Potassium levels. ??For accurate Potassium quantification in these patients send serum separator tube (gold top) for subsequent determinations. ??Contact the Clinical Chemistry Laboratory if there are any questions. Chloride 106 98 - 107 mmol/L [facility] Carbon Dioxide 22 22 - 31 mmol/L [facility] Anion Gap 11 5 - 15 mmol/L [facility] Calcium 9.3 8.5 - 10.5 mg/dL [facility] Protein, Total 7.0 6.1 - 8.0 g/dL [facility] Albumin 4.5 3.2 - 5.2 g/dL [facility] Aspartate Aminotransferase 26 0 - 30 unit/L [facility] Alanine Aminotransferase 36(H) 0 - 30 unit/L [facility] Alkaline Phosphatase 71 35 - 105 unit/L [facility] Bilirubin, Total 0.6 0.2 - 1.3 mg/dL [facility] Est Glomerular Filtration Rate 109 >=60 mL/min/1. 73 m?? [facility] Comment: This patient's estimated GFR was [...] In Lab Jamison Fuentes MD CHEMISTRY ORDERABLES Performing Organization Address City/[facility]/ZIP Co de Phone Number [facility] [place] [address] * Protein Electrophoresis, serum (08/17/2023 10:53 AM EDT) Total Prot Electrophoresis 7.0 6.1 - 8.0 g/dL [facility] Albumin Electrophoresis 4.50 3.20 - 5.20 g/dL [facility] Alpha 1 Globulin 0.16 0.10 - 0.30 g/dL [facility] Alpha 2 Globulin 0.71 0.40 - 0.90 g/dL [facility] Beta Globulin 0.80 0.50 - 1.00 g/dL [facility] Gamma Globulin 0.83 0.50 - 1.30 g/dL [facility] M1 Band None Detected None Detected [facility] Blood 08/17/2023 10:5 3 AM EDT 08/17/2023 10:59 AM EDT Narrative Resulting Agency Comment Spec In Lab Jamison Fuentes MD CHEMISTRY ORDERABLES Performing Organization Address City/[facility]/ZIP Co de Phone Number [facility] [place] [address] * Vitamin B12 (08/17/2023 10:53 AM EDT) Vitamin B12 483 232 - 1,245 pg/mL [facility] Blood 08/17/2023 10:5 3 AM EDT 08/17/2023 10:59 AM EDT Narrative Resulting Agency Comment Spec In Lab Jamison Fuentes MD CHEMISTRY ORDERABLES Performing Organization Address [facility]/ZIP Co de Phone Number [facility] [place] [address] * (ABNORMAL) Vitamin B6 (08/17/2023 10:53 AM EDT) [facility] Vitamin B6 (JULY) 4(L) 5 - 50 mcg/L [facility] Comment: ADDITIONAL INFORMATION This test was developed and its performance characteristics determined by [facility] in a manner consistent with CLIA requirements. This test has not been cleared or approved by the U.S. Food and Drug Administration. Test Performed by: [facility] [place] [address] Manager Software: Luis Felipe Gilmore M.D. Ph.D.; CLIA# [id number] Blood 08/17/2023 10:5 3 AM EDT 08/17/2023 4:14 PM EDT Narrative Resulting Agency Comment Spec In Lab Jamison Fuentes MD LAB SEND OUT ORDERAB LES Performing Organization Address [facility] Co de Phone Number [facility] [place] [address] * Vitamin B1, whole blood (08/17/2023 10:53 AM EDT) [facility] Vit B1 Lvl Wb (JULY) 127 70 - 180 nmol/L [facility] Comment: ADDITIONAL INFORMATION This test was developed and its performance characteristics determined by [facility] in a manner consistent with CLIA requirements. This test has not been cleared or approved by the U.S. Food and Drug Administration. Test Performed by: [facility] [place] [address] Manager Software: Luis Felipe Gilmore M.D. Ph.D.; IA# [id number] Blood 08/17/2023 10:5 3 AM EDT 08/17/2023 4:14 PM EDT Narrative Resulting Agency Comment Spec In Lab Jamison Fuentes MD LAB SEND OUT ORDERAB LES Performing Organization Address [facility]/ZIP Co de Phone Number [facility] [place] [address] * KIRIT Antibody Screen (08/17/2023 10:53 AM EDT) KIRIT Ab Screen Negative Negative [facility] Comment: This antinuclear antibody (KIRIT) screen is a qualitative test performed using a fluoroenzyme immunoassay on the GeoVSdia 250 analyzer. This screen is designed to detect antibodies to U1RNP, SS-A/Ro, SS-B/La, centromere B, Scl-70, Deisy-1, and Sm(Kraus) proteins in serum samples. Antibodies to other nuclear antibodies will not be detected with this assay. This KIRIT screen is also performed in concert with a quantitative for IgG antibodies to dsDNA. dsDNA Ab 0.9 <=15.0 IU/mL [facility] Comment: <10 negative 10-15 equivocal >15 positive This dsDNA antibody result was generated using a fluoroenzyme immunoassay on the GeoVSdia 250 analyzer. This quantitative test is designed to detect IgG antibodies directed against double stranded DNA in human serum. The presence of antibodies that recognize dsDNA is a highly specific marker for systemic lupus erythematosus. Please note that as of 01/11/2022 that this testing is performed by the Special [facility] Laboratory at [facility]. This change in testing location is associated with a change is testing method and reference intervals. Please review the results of this test in association with the posted reference intervals. Blood 08/17/2023 10:5 3 AM EDT 08/18/2023 7:21 AM EDT Narrative Resulting Agency Comment Spec In Lab Jamison Fuentes MD LAB SEND OUT ORDERAB LES Performing Organization Address [facility]/ZIP Co de Phone Number [facility] [place] [address] * Extractable Nuclear Antigen (ZAC) Ab (08/17/2023 10:53 AM EDT) SS-A/Ro Ab 0.40 <=10.00 unit/mL [facility] Comment: <7 negative 7-10 equivocal >10 positive The SS-A antibody result was generated using fluoroenzyme immunoassay on the Phadia 250 analyzer. the semi-quantitative test is designed to detect IgG antibodies in human serum that are reactive to the SS-A (Ro) protein. SS-B/La Ab <0.40 <=10.00 unit/mL [facility] Comment: <7 negative 7-10 equivocal >10 positive The SS-B antibody result was generated using fluoroenzyme immunoassay on the Phadia 250 analyzer. the semi-quantitative test is designed to detect IgG antibodies in human serum that are reactive to the SS-B (La) protein. Scl-70 Ab <0.60 <=10.00 unit/mL [facility] Comment: <7 negative 7-10 equivocal >10 positive The Scl-70 antibody result was generated using fluoroenzyme immunoassay on the Phadia 250 analyzer. the semi-quantitative test is designed to detect IgG antibodies in human serum that are reactive to the Scl-70 protein. Sm (Kraus) Ab <0.70 <=10.00 unit/mL [facility] Comment: <7 negative 7-10 equivocal >10 positive The Sm antibody result was generated using fluoroenzyme immunoassay on the Phadia 250 analyzer. the semi-quantitative test is designed to detect IgG antibodies in human serum that are reactive to the Sm protein. U1RNP Ab 0.90 <=10.00 unit/mL [facility] Comment: <5 negative 5-10 equivocal >10 positive The U1RNP antibody result was generated using fluoroenzyme immunoassay on the Phadia 250 analyzer. the semi-quantitative test is designed to detect IgG antibodies in human serum that are reactive to the U1RNP protein. Centromere Ab <0.40 <=10.00 unit/mL [facility] Comment: <7 negative 7-10 equivocal >10 positive The CENP antibody result was generated using fluoroenzyme immunoassay on the Phadia 250 analyzer. the semi-quantitative test is designed to detect IgG antibodies in human serum that are reactive to the Centromere B protein. Deisy-1 Ab <0.30 <=10.00 unit/mL [facility] Comment: <7 negative 7-10 equivocal >10 positive The Deisy-1 antibody result was generated using fluoroenzyme immunoassay on the Phadia 250 analyzer. the semi-quantitative test is designed to detect IgG antibodies in human serum that are reactive to the Deisy-1 protein. Blood 08/17/2023 10:5 3 AM EDT 08/18/2023 7:21 AM EDT Narrative Resulting Agency Comment Spec In Lab Jamison Fuentes MD LAB SEND OUT ORDERAB LES Performing Organization Address [facility] Co de Phone Number [facility] [place] [address] * Cryoglobulin (08/17/2023 10:53 AM EDT) Cryoglobulin See Note [facility] Comment: Cryoglobulins negative at 24 and 72 hours. Identification of cryoglobulins is dependent upon appropriate sample handling. False negative results may occur if the proper sample handling steps are not followed. This test has not been cleared by the [place] FDA. Performance characteristics of this test were determined by [facility] in accordance with CLIA requirements. This laboratory is qualified under CLIA to perform high-complexity testing. Blood 08/17/2023 10:5 3 AM EDT 08/17/2023 10:56 AM EDT Narrative Resulting Agency Comment Spec In Lab Jamison Fuentes MD CHEMISTRY ORDERABLES Performing Organization Address [facility]/ZIP Co de Phone Number [facility] [place] [address] * Angiotensin Converting Enzyme (08/17/2023 10:53 AM EDT) Hugo (JULY) 25 16 - 85 unit/L [facility] Comment: Test Performed by: [address] [address] Manager Software: Luis Felipe Gilmore M.D. Ph.D.; [facility]# [id number] Blood 08/17/2023 10:5 3 AM EDT 08/17/2023 12:30 PM EDT Narrative Resulting Agency Comment Spec In Lab Jamison Fuentes MD LAB SEND OUT ORDERAB LES Performing Organization Address [facility] Co de Phone Number [facility] [place] [address] * Lyme IgG & IgM Antibody (08/17/2023 10:53 AM EDT) Lyme Antibody Negative Negative [facility] Lyme Ab Comment Negative result does not exclude possibility of infection. [facility] Comment: Please note that as of 07/26/2022 that this testing is performed by the Special Chemistry Laboratory at [facility]. This change in testing location is associated with a change in testing methodology. Blood 08/17/2023 10:5 3 AM EDT 08/18/2023 7:21 AM EDT Narrative Resulting Agency Comment Spec In Lab Jamison Fuentes MD IMMUNOLOGY ORDERABLE S Performing Organization Address [facility] de Phone Number [facility] [place] [address] * Heavy metals screen, blood (08/17/2023 10:53 AM EDT) Heavy Metals Screen (MAY) Test ? Result ?Flag ??Unit ?RefValue ------- Heavy Metals Scrn with Demographics ??Arsenic, B ? <1 ?ng/mL ?? <13 ? ---ADDITIONAL INFORMATION------- ?This test was developed and its performance characteristics ?determined by [facility] in a manner consistent with CLIA ?requirements. This test has not been cleared or approved by ?the U.S. Food and Drug Administration. ??Lead, B ?<1.0 ?mcg/dL ??<3.5 ? ---ADDITIONAL INFORMATION------- ?Testing performed by Triple Quadrupole Inductively Coupled ?Plasma-Mass Spectrometry (ICP-MS/MS). ?This test was developed and its performance characteristics ?determined by [facility] in a manner consistent with CLIA ?requirements. This test has not been cleared or approved by ?the U.S. Food and Drug Administration. ??Cadmium, B ? 2.0 ? ng/mL ?? <5.0 ? ---ADDITIONAL INFORMATION------- ?This test was developed and its performance characteristics ?determined by [facility] in a manner consistent with CLIA ?requirements. This test has not been cleared or approved by ?the U.S. Food and Drug Administration. ??Mercury, B ? <1 ?ng/mL ?? <10 ? ---ADDITIONAL INFORMATION------- ?This test was developed and its performance characteristics ?determined by [facility] in a manner consistent with CLIA ?requirements. This test has not been cleared or approved by ?the U.S. Food and Drug Administration. ??Venous/Capillary ? Venous ??Patient Street Address ? [address] ??Patient City ? [place] ??Patient State ?[place] ??Patient Zip Code ? [address] ??Patient County ? [place] ??Patient Home Phone ? [phone] ??Patient Race ? 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 [employer] ??Guardian First Name ?N/A ??Guardian Last Name ? N/A ??Health Care Provider Name ?Jamison Fuentes ??Health Care Provider Street Address ?[address] ??Health Care Provider City ?[place] ??Health Care Provider State ? [place] ??Health Care Provider Zip Code ?[address] ??Health Care Provider Phone ? [phone] ??Submitting Laboratory Phone ?[facility] Lab: ?Test Performed by: ?[facility] ?[address] [place] [address] ?Manager Software: Luis Felipe Gilmore M.D. Ph.D.; CLIA# [id number] [facility] Blood 08/17/2023 10:5 3 AM EDT 08/17/2023 12:30 PM EDT Jamison Fuentes MD LAB SEND OUT ORDERAB LES [facility] [address] [place] [address] * HIV Screen, 4th Generation ([facility] OKEENE/CGP/APD/NLH) (08/17/2023 10:53 AM EDT) HIV Ab/Ag Screen Negative Negative [facility] Comment: This 4th Generation HIV test [...] HIV Comment Low Risk of HIV Infection [facility] Blood 08/17/2023 10:5 3 AM EDT 08/17/2023 10:59 AM EDT Narrative Resulting Agency Comment Spec In Lab Jamison Fuentes MD CHEMISTRY ORDERABLES Performing Organization Address City/[facility]/ZIP Co de Phone Number [facility] [place] [address] * Hepatitis B Core Antibody, Total (08/17/2023 10:53 AM EDT) Hepatitis B Core Antibody Negative Negative [facility] Blood 08/17/2023 10:5 3 AM EDT 08/17/2023 10:59 AM EDT Narrative Resulting Agency Comment Spec In Lab Jamison Fuentes MD CHEMISTRY ORDERABLES Performing Organization Address City/[facility]/ZIP Co de Phone Number [facility] [place] [address] * Hepatitis B Surface Antibody (08/17/2023 10:53 AM EDT) Hepatitis B Surface Antibody, Quantitative <3.5 IU/L [facility] Comment: HepB Surface Ab Quant: Unvaccinated: < 8.5 IU/L Vaccinated: >= 11.5 IU/L Hepatitis B Surface Antibody Negative [facility] Comment: Patient is presumed to be not vaccinated or immune to HBV infection. Expected Results: Vaccinated: Positive Unvaccinated: Negative Blood 08/17/2023 10:5 3 AM EDT 08/17/2023 10:59 AM EDT Narrative Resulting Agency Comment Spec In Lab Jamison Fuentes MD CHEMISTRY ORDERABLES Performing Organization Address [facility]/ZIP Co de Phone Number [facility] [place] [address] * Hepatitis B Surface Antigen (08/17/2023 10:53 AM EDT) Hepatitis B Surface Antigen Negative Negative [facility] Blood 08/17/2023 10:5 3 AM EDT 08/17/2023 10:59 AM EDT Narrative Resulting Agency Comment Spec In Lab Jamison Fuentes MD CHEMISTRY ORDERABLES Performing Organization Address [facility] de Phone Number [facility] [place] [address] * Hepatitis C Antibody (08/17/2023 10:53 AM EDT) Hepatitis C Antibody Negative Negative [facility] Blood 08/17/2023 10:5 3 AM EDT 08/17/2023 10:59 AM EDT Narrative Resulting Agency Comment Spec In Lab Jamison Fuentes MD CHEMISTRY ORDERABLES Performing Organization Address [facility] Co de Phone Number [facility] [place] [address] * Myelin Associated Glycoprotein Ab with Reflex (08/17/2023 10:53 AM EDT) MAG Ab IgM WB (QST) NEGATIVE NEGATIVE [facility] Comment: This test was developed and its analytical performance characteristics have been determined by [facility]. It has not been cleared or approved by FDA. This assay has been validated pursuant to the CLIA regulations and is used for clinical purposes. Test performed by [facility] ?[address], ?[place] [address] ? Architectural Superintendent: Brielle Suero MD,PHD,SUNNY Test Reported by [facility], [facility], [address] [place], [place] Edmundo Carrasquillo M.D., Ph.D., Director of Laboratories , [facility] [id number] Blood 08/17/2023 10:5 3 AM EDT 08/17/2023 1:06 PM EDT Narrative Resulting Agency Comment Spec In Lab Jamison Fuentes MD LAB SEND OUT ORDERAB LES [facility] [place] [address] * Ganglioside Antibodies (08/17/2023 10:53 AM EDT) Asialo-GM1 Antibodies, IgG/IgM 6 0 - 50 Index Value [facility] GM1 Antibodies, IgG/IgM 7 0 - 50 Index Value [facility] GM2 Antibodies, IgG/IgM 6 0 - 50 Index Value [facility] GD1a Antibodies, IgG/IgM 6 0 - 50 Index Value [facility] GD1b Antibodies, IgG/IgM 6 0 - 50 Index Value [facility] GQ1b Antibodies, IgG/IgM 36 0 - 50 Index Value [facility] Comment: INTERPRETIVE INFORMATION: Ganglioside (Asialo-GM1, GM1, GM2, GD1a, GD1b, and GQ1b) Antibodies, IgG/IgM 29 IV or less: Negative 30-50 IV: Equivocal 51-100 IV: Positive 101 IV or greater: Strong Positive Ganglioside antibodies are associated with diverse peripheral neuropathies. ??Elevated antibody levels to ganglioside-monosialic acid (GM1), and the neutral glycolipid, asialo GM1 are associated with motor or sensorimotor neuropathies, particularly multifocal motor neuropathy. ??Anti-GM1 may occur as IgM (polyclonal or monoclonal) or IgG antibodies. ??These antibodies may also be found in patients with diverse connective tissue diseases as well as normal individuals. ??GD1a antibodies are associated with different variants of Guillain-Houston syndrome (GBS) particularly acute motor axonal neuropathy while GD1b antibodies are predominantly found in sensory ataxic neuropathy syndrome. ??Anti-GQ1b antibodies are seen in more than 80 percent of patients with Jacques-Le syndrome and may be elevated in GBS patients with ophthalmoplegia. ??The role of isolated anti-GM2 antibodies is unknown. ??These tests by themselves are not diagnostic and should be used in conjunction with other clinical parameters to confirm disease. This test was developed and its performance characteristics determined by [facility]. It has not been cleared or approved by the [place] Food and Drug Administration. This test was performed in a CLIA certified laboratory and is intended for clinical purposes. 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
--- OUTSIDE RECORDS SUMMARY | 2023-12-05 14:53 | XMS_ITS | Encounter Summary ---
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 [employer] Name Role Phone Lorene Aldrich MD Primary Care Provider [phone] Encounter Details Date Type Department Care Team (Late st Contact Info) Description 06/08/2018 12:30 PM EDT Tech [place] [address] Gutierrez Rubio, RVT Varicose veins of lower extremity, unspecified laterality, unspecified whether complicated Social History Tobacco Use Types Packs/Day Years Used Date Smoking Tobacco: Every Day Smokeless Tobacco: Never Alcohol Use Standard Drinks/Week [...] Procedure Name Priority Date/Time Associated Diagnosis Comments VENOUS VALVULAR INCOMP, BILAT LEGS Routine 06/08/2018 12:49 PM EDT Varicose veins of lower extremity, unspecified laterality, unspecified whether complicated documented in this encounter Results * Venous Valvular Incomp, Bilat Legs (06/08/2018 12:49 PM EDT) VB Text Report Department: Vascular Surgery Lab Patient: [id number] (CHANG MARINELLI) CPT: 60887 ICD10: I83.90;I87.2 Referring Physician: DELL SIMMS ?? Indications: varicose veins; ? valvular incompetence ICD10 Diagnosis Code: I83.90, I87.2 Findings: Right ?Reflux? Common Femoral Vein ??Competent ?? Femoral Vein ? Competent ?? Popliteal ?Competent ?? GSV, Near SFJ ?Competent ?? GSV, Proximal Thigh ??Competent ?? GSV, Mid Thigh ? Competent ?? GSV, Distal Thigh ?Competent ?? GSV, ??Knee ? Competent ?? GSV Prox Calf ?Competent ?? GSV, Mid Calf ?Competent ?? Left ? Reflux?Diameter (mm) ??Depth (mm) ?? Common Femoral Vein ??Reflux ? Femoral Vein ? Reflux ? Popliteal ?Reflux ? GSV, Near SFJ ?Reflux ? 5.9 ?16.0 ?? GSV, Proximal Thigh ??Reflux ? 4.8 ?14.0 ?? GSV, Mid Thigh ? Reflux ? 3.8 ?17.0 ?? GSV, Distal Thigh ?Reflux ? 4.1 ?12.0 ?? GSV, ??Knee ? Reflux ? 2.6 ? 9.0 ?? GSV Prox Calf ?Competent ?2.0 ? 8.0 ?? GSV, Mid Calf ?Competent ?1.9 ? 5.0 ?? GSV, Distal Calf ? Competent ?2.0 ? 5.0 ?? Interpretation: RIGHT: No significant reflux noted in the common femoral vein, femoral vein in the thigh, popliteal, great saphenous vein or the small saphenous vein. No evidence of deep venous valvular incompetence. No evidence of deep (femoral-popliteal ) or superficial vein thrombus. There is a tortuous superficial vein branch which originates from the saphenofemoral junction and communicates with varicose veins above the pelvis. LEFT: Non-occlusive echogenic thrombus in the common femoral, proximal femoral vein in the thigh and popliteal vein, consistent with chronic non-occlusive deep vein thrombosis. There is reflux in the common femoral vein, femoral vein in the thigh, popliteal vein, and calf veins consistent with deep venous valvular incompetence. There is reflux in the great saphenous vein at the knee (1.5 seconds) and throughout the thigh (> 3.3 seconds) consistent with superficial venous valvular incompetence. Again noted is the tortuous superficial vein branch which appears to originate at the RIGHT saphenofemoral junction and communicates with varicose veins above the pelvis, however, this could also be a [id number] collateral. Comparison: RIGHT: No previous valvular incompetence study in our vascular lab database for comparison. LEFT: No previous valvular incompetence study in our vascular lab database for comparison. Non-occlusive thrombus has somewhat improved (resolved) compared a previous DVT study 09/14/2015. There was mid and distal thigh non-occlusive thrombus which is not visualized in today's exam. 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
--- OUTSIDE RECORDS SUMMARY | 2023-12-05 14:53 | XMS_ITS | Encounter Summary ---
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 [facility] Comment: Please note that as of 07/26/2022 that this testing is performed by the Special Chemistry Laboratory at [facility]. This change in testing location is associated with a change in testing methodology. Blood 08/17/2023 10:5 3 AM EDT 08/18/2023 7:21 AM EDT Narrative Resulting Agency Comment Spec In Lab Jamison Fuentes MD IMMUNOLOGY ORDERABLE S Performing Organization Address [facility] Co de Phone Number [facility] [place] [address] * Angiotensin Converting Enzyme (08/17/2023 10:53 AM EDT) [facility] Hugo (JULY) 25 16 - 85 unit/L [facility] Comment: Test Performed by: [address] [address] Home Office Representative: Luis Felipe Gilmore M.D. Ph.D.; CLIA# [id number] Blood 08/17/2023 10:5 3 AM EDT 08/17/2023 12:30 PM EDT Narrative Resulting Agency Comment Spec In Lab Jamison Fuentes MD LAB SEND OUT ORDERAB LES Performing Organization Address City/[facility]/ZIP Co de Phone Number [facility] [place] [address] * Cryoglobulin (08/17/2023 10:53 AM EDT) [facility] Cryoglobulin See Note [facility] Comment: Cryoglobulins negative at 24 and 72 hours. Identification of cryoglobulins is dependent upon appropriate sample handling. False negative results may occur if the proper sample handling steps are not followed. This test has not been cleared by the US FDA. Performance characteristics of this test were determined by [facility] in accordance with CLIA requirements. This laboratory is qualified under CLIA to perform high-complexity testing. Blood 08/17/2023 10:5 3 AM EDT 08/17/2023 10:56 AM EDT Narrative Resulting Agency Comment Spec In Lab Jamison Fuentes MD CHEMISTRY ORDERABLES [facility] [place] [address] * Extractable Nuclear Antigen (ZAC) Ab (08/17/2023 10:53 AM EDT) SS-A/Ro Ab 0.40 <=10.00 unit/mL [facility] Comment: <7 negative 7-10 equivocal >10 positive The SS-A antibody result was generated using fluoroenzyme immunoassay on the LaComunitydia 250 analyzer. the semi-quantitative test is designed to detect IgG antibodies in human serum that are reactive to the SS-A (Ro) protein. SS-B/La Ab <0.40 <=10.00 unit/mL [facility] Comment: <7 negative 7-10 equivocal >10 positive The SS-B antibody result was generated using fluoroenzyme immunoassay on the Phadia 250 analyzer. the semi-quantitative test is designed to detect IgG antibodies in human serum that are reactive to the SS-B (La) protein. Scl-70 Ab <0.60 <=10.00 unit/mL [facility] Comment: <7 negative 7-10 equivocal >10 positive The Scl-70 antibody result was generated using fluoroenzyme immunoassay on the Phadia 250 analyzer. the semi-quantitative test is designed to detect IgG antibodies in human serum that are reactive to the Scl-70 protein. Sm (Kraus) Ab <0.70 <=10.00 unit/mL [facility] Comment: <7 negative 7-10 equivocal >10 positive The Sm antibody result was generated using fluoroenzyme immunoassay on the Phadia 250 analyzer. the semi-quantitative test is designed to detect IgG antibodies in human serum that are reactive to the Sm protein. U1RNP Ab 0.90 <=10.00 unit/mL [facility] Comment: <5 negative 5-10 equivocal >10 positive The U1RNP antibody result was generated using fluoroenzyme immunoassay on the LaComunitydia 250 analyzer. the semi-quantitative test is designed to detect IgG antibodies in human serum that are reactive to the U1RNP protein. Centromere Ab <0.40 <=10.00 unit/mL [facility] Comment: <7 negative 7-10 equivocal >10 positive The CENP antibody result was generated using fluoroenzyme immunoassay on the Phadia 250 analyzer. the semi-quantitative test is designed to detect IgG antibodies in human serum that are reactive to the Centromere B protein. Deisy-1 Ab <0.30 <=10.00 unit/mL [facility] Comment: <7 negative 7-10 equivocal >10 positive The Deisy-1 antibody result was generated using fluoroenzyme immunoassay on the LaComunitydia 250 analyzer. the semi-quantitative test is designed to detect IgG antibodies in human serum that are reactive to the Deisy-1 protein. Blood 08/17/2023 10:5 3 AM EDT 08/18/2023 7:21 AM EDT Narrative Resulting Agency Comment Spec In Lab Jamison Fuentes MD LAB SEND OUT ORDERAB LES [facility] [place] [address] * KIRIT Antibody Screen (08/17/2023 10:53 AM EDT) KIRIT Ab Screen Negative Negative [facility] Comment: This antinuclear antibody (KIRIT) screen is a qualitative test performed using a fluoroenzyme immunoassay on the Phadia 250 analyzer. This screen is designed to detect antibodies to U1RNP, SS-A/Ro, SS-B/La, centromere B, Scl-70, Deisy-1, and Sm(Kraus) proteins in serum samples. Antibodies to other nuclear antibodies will not be detected with this assay. This KIRIT screen is also performed in concert with a quantitative for IgG antibodies to dsDNA. dsDNA Ab 0.9 <=15.0 IU/mL [facility] Comment: <10 negative 10-15 equivocal >15 positive This dsDNA antibody result was generated using a fluoroenzyme immunoassay on the CodeCombat 250 analyzer. This quantitative test is designed to detect IgG antibodies directed against double stranded DNA in human serum. The presence of antibodies that recognize dsDNA is a highly specific marker for systemic lupus erythematosus. Please note that as of 01/11/2022 that this testing is performed by the Special Chemistry Laboratory at [facility]. This change in testing location is associated with a change is testing method and reference intervals. Please review the results of this test in association with the posted reference intervals. Blood 08/17/2023 10:5 3 AM EDT 08/18/2023 7:21 AM EDT Narrative Resulting Agency Comment Spec In Lab Jamison Fuentes MD LAB SEND OUT ORDERAB LES Performing Organization Address [facility]/ZIP Co de Phone Number [facility] [place] [address] * Vitamin B1, whole blood (08/17/2023 10:53 AM EDT) Vit B1 Lvl Wb (JULY) 127 70 - 180 nmol/L [facility] Comment: ADDITIONAL INFORMATION This test was developed and its performance characteristics determined by [facility] in a manner consistent with CLIA requirements. This test has not been cleared or approved by the U.S. Food and Drug Administration. Test Performed by: [facility] [place] [place] [address] Home Office Representative: Luis Felipe Gilmore M.D. Ph.D.; CLIA# [id number] Blood 08/17/2023 10:5 3 AM EDT 08/17/2023 4:14 PM EDT Narrative Resulting Agency Comment Spec In Lab Jamison Fuentes MD LAB SEND OUT ORDERAB LES Performing Organization Address City/[facility]/ZIP Co de Phone Number [facility] [place] [address] * (ABNORMAL) Vitamin B6 (08/17/2023 10:53 AM EDT) [facility] Vitamin B6 (JULY) 4(L) 5 - 50 mcg/L [facility] Comment: ADDITIONAL INFORMATION This test was developed and its performance characteristics determined by [facility] in a manner consistent with CLIA requirements. This test has not been cleared or approved by the U.S. Food and Drug Administration. Test Performed by: [facility] - [address] [address] Home Office Representative: Luis Felipe Gilmore M.D. Ph.D.; CLIA# [id number] Blood 08/17/2023 10:5 3 AM EDT 08/17/2023 4:14 PM EDT Narrative Resulting Agency Comment Spec In Lab Jamison Fuentes MD LAB SEND OUT ORDERAB LES Performing Organization Address [facility] Co de Phone Number [facility] [place] [address] * Vitamin B12 (08/17/2023 10:53 AM EDT) [facility] Vitamin B12 483 232 - 1,245 pg/mL [facility] Blood 08/17/2023 10:5 3 AM EDT 08/17/2023 10:59 AM EDT Narrative Resulting Agency Comment Spec In Lab Jamison Fuentes MD CHEMISTRY ORDERABLES Performing Organization Address [facility]/ZIP Co de Phone Number [facility] [place] [address] * Protein Electrophoresis, serum (08/17/2023 10:53 AM EDT) [facility] Total Prot Electrophoresis 7.0 6.1 - 8.0 g/dL [facility] Albumin Electrophoresis 4.50 3.20 - 5.20 g/dL [facility] Alpha 1 Globulin 0.16 0.10 - 0.30 g/dL [facility] Alpha 2 Globulin 0.71 0.40 - 0.90 g/dL [facility] Beta Globulin 0.80 0.50 - 1.00 g/dL [facility] Gamma Globulin 0.83 0.50 - 1.30 g/dL [facility] M1 Band None Detected None Detected [facility] Blood 08/17/2023 10:5 3 AM EDT 08/17/2023 10:59 AM EDT Narrative Resulting Agency Comment Spec In Lab Jamison Fuentes MD CHEMISTRY ORDERABLES [facility] [place] [address] * (ABNORMAL) Comprehensive metabolic panel (non-fasting) (08/17/2023 10:53 AM EDT) Glucose 93 65 - 199 mg/dL [facility] Comment:Diabetes: >=200 mg/d L plus symptoms Blood Urea Nitrogen 16 8 - 18 mg/dL [facility] Creatinine 0.67(L) 0.70 - 1.20 mg/dL [facility] Sodium 139 135 - 145 mmol/L [facility] Potassium 3.9 3.5 - 5.0 mmol/L [facility] Comment: Please note: ??Patients with WBC >100,000 may have falsely elevated Potassium levels. ??For accurate Potassium quantification in these patients send serum separator tube (gold top) for subsequent determinations. ??Contact the Clinical Chemistry Laboratory if there are any questions. Chloride 106 98 - 107 mmol/L [facility] Carbon Dioxide 22 22 - 31 mmol/L [facility] Anion Gap 11 5 - 15 mmol/L [facility] Calcium 9.3 8.5 - 10.5 mg/dL [facility] Protein, Total 7.0 6.1 - 8.0 g/dL [facility] Albumin 4.5 3.2 - 5.2 g/dL [facility] Aspartate Aminotransferase 26 0 - 30 unit/L [facility] Alanine Aminotransferase 36(H) 0 - 30 unit/L [facility] Alkaline Phosphatase 71 35 - 105 unit/L [facility] Bilirubin, Total 0.6 0.2 - 1.3 mg/dL [facility] Est Glomerular Filtration Rate 109 >=60 mL/min/1. 73 m?? [facility] Comment: This patient's estimated GFR [...] Fuentes MD CHEMISTRY ORDERABLES Performing Organization Address City/[facility]/ZIP Co de Phone Number [facility] [place] [address] * (ABNORMAL) CRP, acute inflammation (08/17/2023 10:53 AM EDT) C-Reactive Protein 11.4(H) <=4.9 mg/L [facility] Blood 08/17/2023 10:5 3 AM EDT 08/17/2023 10:59 AM EDT Narrative Resulting Agency Comment Spec In Lab Jamison Fuentes MD CHEMISTRY ORDERABLES [facility] [place] [address] * Sedimentation rate (08/17/2023 10:53 AM EDT) Sedimentation Rate Automated 31 2 - 37 mm/hr [facility] Comment: Effective February 27, 2019 new capillary photometric technology has resulted in a change in reference ranges. It is recommended that each ESR result be reviewed with its own age appropriate reference range. Blood 08/17/2023 10:5 3 AM EDT 08/17/2023 10:59 AM EDT Narrative Resulting Agency Comment Spec In Lab Jamison Fuentes MD HEMATOLOGY ORDERABLE S Performing Organization Address [facility] Co de Phone Number [facility] [place] [address] * TSH [place] (08/17/2023 10:53 AM EDT) [facility] Thyroid Stimulating Hormone 1.06 0.27 - 4.20 mcIU/mL [facility] Comment: Reference Interval (mcIU/mL): Females: ??First Trimester: 0.23-3.88 ??Second Trimester: 0.22-3.90 ??Third Trimester: 0.44-4.66 Blood 08/17/2023 10:5 3 AM EDT 08/17/2023 10:59 AM EDT Narrative Resulting Agency Comment Spec In Lab Jamison Fuentes MD CHEMISTRY ORDERABLES Performing Organization Address City/[facility]/ZIP Co de Phone Number [facility] [place] [address] * Hemoglobin A1c (08/17/2023 10:53 AM EDT) Hemoglobin A1c 5.3 4.3 - 5.6 % [facility] Comment: Reference Range: 4.3 - 5.6% [...] Mellitus, Diabetes Care 2013; 36: Suppl. 1, S6774 Estimated Average Glucose 106 mg/dL [facility] Blood 08/17/2023 10:5 3 AM EDT 08/17/2023 10:59 AM EDT Narrative Resulting Agency Comment Spec In Lab Jamison Fuentes MD CHEMISTRY ORDERABLES [facility] [place] [address] documented in this encounter Visit Diagnoses Diagnosis Left foot pain Pain in limb Peripheral polyneuropathy Unspecified hereditary and idiopathic peripheral neuropathy documented in this encounter Care Teams Registered Account Administrator Relationship Specialty Start Date End Date Lorene Aldrich MD [address] [place] [address] PCP - General Family Medicine 06/12/15 documented as of this encounter
--- OUTSIDE RECORDS SUMMARY | 2023-12-05 14:53 | XMS_ITS | Encounter Summary ---
Author Organization [place] [id number] Care Team Providers Care Refrigeration Engine Operator Name Role Phone Lorene Aldrich MD Primary Care Provider [phone] Reason for Visit * Reason Onset Date Comments New Medication Request 02/18/2016 prednison e Encounter Details Date Type Department Care Team (Late st Contact Info) Description 02/18/2016 [place] [id number] Mary Blood RN New Medication Request (prednisone) Social History Tobacco Use Types Packs/Day Years Used Date Smoking Tobacco: Every Day Alcohol Use Standard Drinks/Week Comments No 0 (1 standard drink = 0.6 oz pur e alcohol) Sex and Gender Information Value Date Recorded Sex Assigned at Female 11/19/2023 10:16 AM EDT Gender Identity Female 11/19/2023 10:16 AM EDT Sexual Orientation Not on file documented as of this encounter Miscellaneous Notes * Telephone Encounter - Mary Blood RN - 02/18/2016 10:17 AM EST Caller: jesenia Rodriguez name/ [phone] Reason for call: Requesting script for prednisone as experiencing difficulty breathing. Productive cough: Not sure of the color Not sure if running a fever Jennifer reports having a difficult time obtaining transportation. Continues to smoke some Uses RA in [place], [place] Reviewed with Dr Coughlin who will review and contact Jennifer. documented in this encounter Plan of Treatment Not on file documented as of this encounter Visit Diagnoses Not on filedocumented in this encounter Care Teams Refrigeration Engine Operator Relationship Specialty Start Date End Date Lorene Aldrich MD [address] [place] [address] PCP - General Family Medicine 06/12/15 documented as of this encounter
--- OUTSIDE RECORDS SUMMARY | 2023-12-05 14:53 | XMS_ITS | Encounter Summary ---
Author Organization [facility] [place] [address] Care Team Providers Care Skirt Maker Name Role Phone Lorene Aldrich MD Primary Care Provider Encounter Details Date Type Department Care Team (Late st Contact Info) Description 02/18/2016 Orders [place] [address] Marshall Coughlin MD [facility] [place] [address] Acute exacerbation of chronic obstructive airways disease Social History Tobacco Use Types Packs/Day Years [...] documented as of this encounter Visit Diagnoses Diagnosis Acute exacerbation of chronic obstructive airways disease Obstructive chronic bronchitis with exacerbation documented in this encounter Care Teams Skirt Maker Relationship Specialty Start Date End Date Lorene Aldrich MD [address] [place] [address] PCP - General Family Medicine 06/12/15 documented as of this encounter
--- OUTSIDE RECORDS SUMMARY | 2023-12-05 14:53 | XMS_ITS | Encounter Summary ---
[place] [address] Care Team Providers Care Mucker Cofferdam Name Role Phone Lorene Aldrcih MD Primary Care Provider [phone] Reason for Referral * Consultation (Routine) - Authorized Specialty Diagnoses / Procedures Referred By Chris lobo Referred To Contact Neurology Diagnoses Peripheral polyneuropathy PERIPHERAL NEUROPATHY, FEET Lorene Aldrich MD [address] [place] [address] [facility] [address] [place] [phone] Referral ID Status Reason Start Date Expiration Date Visits Requested Visits Authorized [id number] Authorized Consult, Test & Treat PCP Updated and/or Approved 01/25/2023 01/25/2024 6 6 Encounter Details Date Type Department Care Team (Latest Contact Info) Description 02/06/2023 Transcribe Orders eDH Incoming Referrals [phone] Lorene Aldrich MD [address] [place], [place] [id number] Peripheral polyneuropathy Social History Tobacco Use Types [...] as of this encounter Plan of Treatment Scheduled Referrals Name Type Priority Associated Diagnoses Orde r Schedule Referral to Neurology Outpatient Referral Routine Peripheral polyneuropathy Ordered: 02/06/2023 documented as of this encounter Visit Diagnoses Diagnosis Peripheral polyneuropathy Unspecified hereditary and idiopathic peripheral neuropathy documented in this encounter Care Teams Mucker Cofferdam Relationship Specialty Start Date End Date Lorene Aldrich MD [address] [place] [address] PCP - General Family Medicine 06/12/15 documented as of this encounter
--- OUTSIDE RECORDS SUMMARY | 2023-12-05 14:53 | XMS_ITS | Encounter Summary ---
[place] [address] Care Team Providers Care Mill Controller Name Role Phone Lorene Aldrich MD Primary Care Provider [phone] Encounter Details Date Type Department Care Team (Late st Contact Info) Description 01/30/2018 Orders Only [place] [address] Ingrid Burgos RN Varicose veins of lower extremity, unspecified laterality, [...] on file documented as of this encounter Results * Venous Valvular Incomp, Bilat Legs (06/08/2018 12:49 PM EDT) VB Text Report Department: Vascular Surgery Lab Patient: [id number] (ISIS CHANG) CPT: 19820 ICD10: I83.90;I87.2 Referring Physician: DELL SIMMS ?? [...] pelvis, however, this could also be a [id number] collateral. Comparison: RIGHT: No previous valvular incompetence [...] complicated documented in this encounter Care Teams Mill Controller Relationship Specialty Start Date End Date Lorene Aldrich MD [address] [place] [address] PCP - General Family Medicine 06/12/15 documented as of this encounter
--- OUTSIDE RECORDS SUMMARY | 2023-12-05 14:53 | XMS_ITS | Encounter Summary ---
Author Organization [facility]ly [facility] [place] [address] Care Team Providers Care Needle Felt Making Machine Operator Name Role Phone Lorene Aldrich MD Primary Care Provider [phone]- [phone] Encounter Details Date Type Department Care Team (Late st Contact Info) Description 05/16/2018 Orders [place] [address] Tommie Reynolds MD [facility] [place] [address] Asthma, unspecified asthma severity, unspecified whether complicated, unspecified whether persistent; Chronic obstructive pulmonary disease, unspecified COPD type Social History Tobacco Use Types Packs/Day Years [...] documented as of this encounter Results * Pulmonary Function Testing (06/11/2018 3:02 PM EDT) Narrative Zaria Sinclair MD - 06/11/2018 3:02 PM EDT Zaria Sinclair MD ? 06/11/2018 ??3:04 PM Pulmonary Function Test Interpretation Spirometry The FVC is normal. ??FEV1 is reduced. ??The FEV1/FVC ratio is reduced. Diffusion Capacity Unadjusted single-breath diffusion capacity for CO is normal. Impression: Mild (FEV1 > 70%) obstructive ventilatory defect No bronchodilator response is noted after administration of inhaled bronchodilator No diffusion impairment present Fraction of Exhaled Nitric Oxide (FeNO) Measurement Nitric oxide (NO) is recognized as a biomarker for eosinophilic airway inflammation, as is generally the case in asthma. ?? Measuring NO in exhaled breath can help determine whether non-specific respiratory symptoms of wheezing, dyspnea, and cough are due to asthma. ??However, there are several important limitations of using this test to diagnose and treat asthma. ?? Guidelines from a 2011 [place] [employer] (ATS) executive summary on the clinical use of FeNO are listed. Diagnostic Use: ?? A FeNO <25 ppb suggests that eosinophilic airway inflammation, and by inference, clinical responsiveness to corticosteroids, is less likely. ?? A FeNO >50 ppb indicates that eosinophilic airway inflammation and responsiveness to corticosteroids in symptomatic patients are both likely. ?? FeNO levels between 25 and 50 ppb should be interpreted cautiously and in context. ?? Persistent and/or high allergen exposure is a factor associated with higher FeNO levels (>50 ppb). ?? The presence or absence of respiratory symptoms is an important consideration when interpreting FeNO. Monitoring Response: ?? A minimally important decrease in FeNO is defined as >20% for values >50 ppb or more than 10 ppb for values <50 ppb from one visit to the next. ?? A reduction of an elevated FeNO of >20% occurring 2-6 weeks after anti-inflammatory treatment initiation is consistent with therapeutic efficacy. The FeNO in ppb for this patient at today's visit was ??9 Zaria Sinclair MD Tommie Card MD PFT ORDERABLES documented in this encounter Visit Diagnoses Diagnosis Asthma, unspecified asthma severity, unspecified whether complicated, unspecified whether persistent Chronic obstructive pulmonary disease, unspecified COPD type Asthma, unspecified asthma severity, unspecified whether complicated, unspecified whether persistent Chronic obstructive pulmonary disease, unspecified COPD type documented in this encounter Care Teams Needle Felt Making Machine Operator Relationship Specialty Start Date End Date Lorene Aldrich MD [facility] [address] [place] [address] PCP - General Family Medicine 06/12/15 documented as of this encounter
--- OUTSIDE RECORDS SUMMARY | 2023-12-05 14:53 | XMS_ITS | Encounter Summary ---
[place] [address] Care Team Providers Care Utility Worker Name Role Phone Camille Aldrich MD Primary Care Provider [phone] Reason for Visit * Reason Onset Date Comments Advice Only 09/15/2015 Encounter Details Date Type Department Care Team (Late st Contact Info) Description 09/15/2015 Telephone Hematology [place] [id number] Priya Motley, personal banker Only Social History Tobacco Use Types Packs/Day Years [...] encounter Miscellaneous Notes * Telephone Encounter - Priya Motley, RN - 09/15/2015 9:11 AM EDT Images from the original note were not included. Date of Encounter: September 15, 2015 T/C to pt's PCP Dr. Camille Aldrich at [phone] at [facility] Reviewed message below with Aaron COVARRUBIAS for pt's PCP at [facility]. The patient is scheduled for an INR check at [facility] on 09/16. Also - T/C to patient - left message for patient to call to review plan as outlined below. Priya Motley, RAFAEL RN ?? Asuncion Bhat MD McKernan, Laurel, RN ? Priya, 1. Please call PCP's office that she would like to switch from warfarin to apixaban. - check INR if INR is 2 or less, then start apixaban - if INR greater than 2, hold warfarin and recheck INR in 2-3 days 2. I sent a script to her local pharmacy. Please check with her if she picks it up and let her go to PCP's office to have her INR check documented in this encounter Plan of Treatment Not on file documented as of this encounter Visit Diagnoses Not on filedocumented in this encounter Care Teams Utility Worker Relationship Specialty Start Date End Date Camille Aldrich MD [address] [place] [address] PCP - General Family Medicine 06/12/15 documented as of this encounter
--- OUTSIDE RECORDS SUMMARY | 2023-12-05 14:53 | XMS_ITS | Encounter Summary ---
[place] [address] Care Team Providers Care All Around Gear Machine Operator Name Role Phone Lorene Aldrich MD Primary Care Provider [phone]- [phone] Encounter Details Date Type Department Care Team (Late st Contact Info) Description 06/11/2018 Telephone [place] [id number] Melissa Reno Social History Tobacco Use Types Packs/Day Years [...] encounter Miscellaneous Notes * Telephone Encounter - Melissa Reno - 06/11/2018 11:21 AM EDT The patient came to the Exit desk. The appropriate Radiology Safety questions were asked and the patient was scheduled for her CT scan. documented in this encounter Plan of Treatment Not on file documented as of this encounter Visit Diagnoses Not on filedocumented in this encounter Care Teams All Around Gear Machine Operator Relationship Specialty Start Date End Date Lorene Aldrich MD [address] [place] [address] PCP - General Family Medicine 06/12/15 documented as of this encounter
--- OUTSIDE RECORDS SUMMARY | 2023-12-05 14:53 | XMS_ITS | Encounter Summary ---
[place] [address] Care Team Providers Care Procurement Inspector Name Role Phone Lorene Aldrich MD Primary Care Provider [phone] Reason for Referral * Diagnostic Test (Routine) - Closed Specialty Diagnoses / Procedures Referred By Contantoinette t Referred To Contact Diagnoses PAD (peripheral artery disease) Procedures JAYSON, legs, multiple levels Mary Griggs APRN [facility] [place] [address] [facility] [address] [address] Referral ID Status Reason Start Date Expiration Date V isits Requested Visits Authorized [id number] Closed Specialty Service Requested 02/01/2023 02/01/2024 1 1 Encounter Details Date Type Department Care Team (Late st Contact Info) Description 02/01/2023 Orders [place] [address] Mary Griggs APRN [facility] [place] [address] PAD (peripheral artery disease) Social History Tobacco Use Types Packs/Day Years Used Date Smoking Tobacco: Never Assessed Sex and Gender Information Value Date Recorded Sex Assigned at Female 11/19/2023 10:16 AM EDT Gender Identity Female 11/19/2023 10:16 AM EDT Sexual Orientation Not on file documented as of this encounter Plan of Treatment Not on file documented as of this encounter Visit Diagnoses Diagnosis PAD (peripheral artery disease) Peripheral vascular disease, unspecified documented in this encounter Care Teams Procurement Inspector Relationship Specialty Start Date End Date Lorene Aldrich MD [address] [place] [address] PCP - General Family Medicine 06/12/15 documented as of this encounter
--- OUTSIDE RECORDS SUMMARY | 2023-12-05 14:53 | XMS_ITS | Encounter Summary ---
Author Organization [facility] [place] [address] Care Team Providers Care Expansion Envelope Maker Hand Name Role Phone Lorene Aldrich MD Primary Care Provider [phone] Encounter Details Date Type Department Care Team (Late st Contact Info) Description 07/09/2015 Telephone [place] [phone] Marshall Bradford MD [facility] [place] [address] Social History Tobacco Use Types Packs/Day Years [...] encounter Miscellaneous Notes * Telephone Encounter - Marshall Bradford - 07/09/2015 5:16 PM EDT Pulmonary Discussed with Jennifer. 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 Short term add budesonide nebulized. Will attempt pred wean next week if doing ok assisted will check all autoimmune serology and quant Ig when off steroids. May need repeat CT +/-lung biopsy if doesn't improve. MARSHALL BRADFORD MD documented in this encounter Plan of Treatment Not on file documented as of this encounter Visit Diagnoses Diagnosis VANEGAS (dyspnea on exertion) Other dyspnea and respiratory abnormality documented in this encounter Care Teams Expansion Envelope Maker Hand Relationship Specialty Start Date End Date Lorene Aldrich MD [address] [place] [address] PCP - General Family Medicine 06/12/15 documented as of this encounter
--- OUTSIDE RECORDS SUMMARY | 2023-12-05 14:53 | XMS_ITS | Encounter Summary ---
Author Organization [facility] [address] [place] [address] Care Team Providers Care Wood Mechanist Name Role Phone Lorene Aldrich MD Primary Care Provider [phone]- [phone] Encounter Details Date Type Department Care Team (Latest Contact Info) Description 09/17/2019 10:58 AM EDT - 09/17/2019 11:59 PM EDT Hospital Encounter XRay at [address] [place] [address] Dave Glass MD [facility] [place] [address] Pain in right hip Discharge Disposition: Home Social History Tobacco Use Types Packs/Day Years [...] on file documented as of this encounter Medications at Time of Discharge Medication Sig Dispensed Refills Start Date End Date fluticasone propionate (FLONASE) 50 mcg/actuation [place], Suspension SHAKE LQ AND U 2 SPRAYS IEN D 09/02/2019 levothyroxine (SYNTHROID) 137 mcg Tablet TK 1 T PO D 09/10/2019 PROAIR HFA 90 mcg/actuation HFA Aerosol Inhaler 0 05/29/2015 cetirizine (ZyrTEC) 10 mg Tablet TK 1 T PO D FOR ALLERGIES 07/30/2019 PULMICORT FLEXHALER 180 mcg/actuation Aerosol Powdr Breath Activated INHALE 1 PUFFS BY MOUTH TWICE DAILY. 0 05/17/2018 aspirin 81 mg Tablet, Delayed Release (E.C.) Take 81 mg by mouth daily. SUBOXONE 8-2 mg Film 12 mg. 0 06/02/2015 documented as of this encounter Plan of Treatment Not on file documented as of this encounter Procedures Procedure Name Priority Date/Time Associated Diagnosis Comments XR PELVIS AND HIP 2 VIEWS RIGHT Routine 09/17/2019 11:07 AM EDT Pain in right hip documented in this encounter Results * XR Pelvis and Hip 2 Views Right (09/17/2019 11:07 AM EDT) Anatomical Region Laterality Modality Pelvis, Hip Right Digital Radiogra phy Impressions 09/17/2019 11:35 AM EDT Slight radiolucent change noted at the interface of bone and prosthesis at the base of the femoral component as discussed above Thank you for letting us participate in the care of this patient. For questions regarding this report, please contact the number below. ? 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 The components of the right hip joint prosthesis remain in good position and alignment. There is a slight zone of radiolucent change at the interface between the base of the femoral component of prosthesis and the greater trochanter compared with the older exam which could indicate a mild degree of loosening but no radiolucent changes are seen elsewhere. No periosteal reaction is seen, no fracture is seen. The evidence of old injury at the left side ischial tuberosity and subsequent exostosis configuration appear stable Procedure Note Jhon Page MD - 09/17/2019 EXAMINATION: XR PELVIS AND HIP 2 VIEWS RIGHT CLINICAL HISTORY: RIGHT HIP PAIN - SP R VANNESSA DOS DR NI - PAIN TECHNIQUE: AP pelvis and AP oblique view right hip COMPARISON: 04/14/2010 FINDINGS: There are residual ghost defects in the intratrochanteric region and inthe midshaft of the femur from previous pins and screws unchanged from theprior study. The components of the right hip joint prosthesis remain in goodposition and alignment. There is a slight zone of radiolucent change at theinterface between the base of the femoral component of prosthesis and the greater trochanter compared with the older exam which could indicate a mild degreeof loosening but no radiolucent changes are seen elsewhere. No periostealreaction is seen, no fracture is seen. The evidence of old injury at the leftside ischial tuberosity and subsequent exostosis configuration appear stable IMPRESSION Slight radiolucent change noted at the interface of bone and prosthesis atthe base of the femoral component as discussed above Thank you for letting us participate in the care of this patient. Forquestions regarding this report, please contact the number below. Electronically signed by: Jhon Page [facility]([phone]), at 09/17/2019 11:35 AM Dave Glass MD IMG DX ORDERABLES documented in this encounter Visit Diagnoses Diagnosis Pain in right hip Pain in joint, pelvic region and thigh documented in this encounter Care Teams Wood Mechanist Relationship Specialty Start Date End Date Lorene Aldrich MD [facility] [address] [place] [address] PCP - General Family Medicine 06/12/15 documented as of this encounter
--- OUTSIDE RECORDS SUMMARY | 2023-12-05 14:53 | XMS_ITS | Encounter Summary ---
Author Organization [facility] [place] [address] Care Team Providers Care Trouble Locator Test Desk Name Role Phone Lorene Aldrich MD Primary Care Provider [phone] Encounter Details Date Type Department Care Team (Late st Contact Info) Description 09/13/2019 [place] [address] Dave Glass MD [facility] [place] [address] Pain in right hip Social History Tobacco Use Types Packs/Day Years [...] as of this encounter Visit Diagnoses Diagnosis Pain in right hip Pain in joint, pelvic region and thigh documented in this encounter Care Teams Trouble Locator Test Desk Relationship Specialty Start Date End Date Lorene Aldrich MD [address] [place] [address] PCP - General Family Medicine 06/12/15 documented as of this encounter
--- OUTSIDE RECORDS SUMMARY | 2023-12-05 14:53 | XMS_ITS | Encounter Summary ---
[place] [address] Care Team Providers Care Lollypop Machine Operator Name Role Phone Lorene Aldrich MD Primary Care Provider [phone] Encounter Details Date Type Department Care Team (Latest Contact Info) Description 09/14/2015 4:00 PM EDT - 09/14/2015 11:59 PM EDT Hospital En[place] [address] Lei Degroot, MARY Recurrent deep vein thrombosis (DVT) Discharge Disposition: Home Social History Tobacco Use [...] Sig Dispensed Refills Start Date End Date PROAIR HFA 90 mcg/actuation HFA Aerosol Inhaler 0 05/29/2015 SUBOXONE 8-2 mg Film 12 mg. 0 06/02/2015 predniSONE (DELTASONE) 10 mg TabletIndications:Mode rate persistent asthma with acute exacerbation Take 3 tablets by mouth daily for 10 days. 30 tablet 12/20/2015 12/30/2015 levothyroxine (SYNTHROID) 125 mcg Tablet 137 mcg. 0 09/11/2015 09/17/2019 apixaban (ELIQUIS) 5 mg Tablet Take 1 tablet by mouth 2 times daily for 30 days. 60 tablet 1 09/14/2015 10/14/2015 budesonide (PULMICORT) 0.5 mg/2 mL Suspension for NebulizationIndication s:VANEGAS (dyspnea on exertion) Take 2 mLs by nebulization daily for 90 days. 6 Package 2 07/09/2015 10/07/2015 levothyroxine (SYNTHROID) 88 mcg Tablet 125 mcg. 0 05/29/2015 06/08/2018 albuterol (PROVENTIL) 2.5 mg /3 mL (0.083 %) Solution for Nebulization 0 05/29/2015 10/19/2015 ADVAIR HFA 230-21 mcg/actuation HFA Aerosol Inhaler 0 03/25/2015 06/11/2018 diaZEPam (VALIUM) 10 mg tablet 10 MG = 1 Tablet(s), PO, take 1/2 hr before MRI 06/08/2010 10/19/2015 documented as of this encounter Plan of Treatment Not on file documented as of this encounter Procedures Procedure Name Priority Date/Time Associated Diagnosis Comments DUPLEX FOR DVT BILAT LEGS Routine 09/14/2015 4:14 PM EDT Recurrent deep vein thrombosis (DVT) documented in this encounter Results * Duplex Study for DVT, Bilat legs (09/14/2015 4:14 PM EDT) VB Text Report Department: Vascular Surgery Lab Patient: [id number] (CHANG MARINELLI) CPT: 08557 ICD10: I82.409;Z86.718 Referring Physician: ASUNCION BHAT ?? Indications: ??history of left thrombus, IVC filter, right lower extremity edema. ICD10 Diagnosis Code: I82.409 RIGHT: Patent common femoral vein and popliteal vein with spontaneous, respirophasic Doppler waveforms that respond normally to augmentation maneuvers. The common femoral vein, saphenofemoral junction, femoral vein through the thigh and popliteal vein are fully compressible. Patent posterior tibial and peroneal veins with no evidence of thrombus. LEFT: Non-occlusive thrombus from common femoral vein through the femoral vein in the thigh and popliteal vein. Due to poor visualization unable to exclude non-occlusive thrombus in the posterior tibial or peroneal veins. Patent common femoral vein and popliteal vein with spontaneous, respirophasic Doppler waveforms that respond normally to augmentation maneuvers. Interpretation: RIGHT: ??No evidence of lower extremity deep venous thrombosis. LEFT: Non-occlusive lower extremity deep venous thrombus. Progression from previous exam done on 12/13/06. Dr. Bhat was notified of the results. Electronically Signed by: SEAMUS POOLE M.D. on 2015-09-14 05:36:02 PM VASCUBASE VB Text Report End of Report VAS[facility] 09/14/2015 4:14 PM EDT Asuncion Faith MD VASCULAR ORDERABLES VAS[facility] documented in this encounter Visit Diagnoses Diagnosis Recurrent deep vein thrombosis (DVT) documented in this encounter Care Teams Lollypop Machine Operator Relationship Specialty Start Date End Date Lorene Aldrich MD [address] [place] [address] PCP - General Family Medicine 06/12/15 documented as of this encounter
--- OUTSIDE RECORDS SUMMARY | 2023-12-05 14:53 | XMS_ITS | Encounter Summary ---
[place] [address] Care Team Providers Care Accounting Machine Operator Name Role Phone Lorene Aldrich MD Primary Care Provider [phone] Reason for Visit * Auth/Cert Specialty Diagnoses / Procedures Referred By Contac t Referred To Contact Diagnoses VANEGAS Procedures PRO BRONCHOSCOPY, DIAGNOSTIC BRONCHOSCOPY Referral ID Status Reason Start Date Expiration Date Visits Re quested Visits Authorized [id number] 1 1 Encounter Details Date Type Department Care Team (Latest Contact Info) Description 06/25/2015 7:30 AM EDT Laboratory Appointment Lab [address] [place] [address] VANEGAS (dyspnea on exertion) Social History Tobacco Use Types Packs/Day Years [...] Procedure Name Priority Date/Time Associated Diagnosis Comments _URINALYSIS WITH MICRSOCOPIC Routine 06/25/2015 8:41 AM EDT VANEGAS (dyspnea on exertion) IMMUNOGLOBULIN E (IGE) Routine 6 8:18 AM EDT VANEGAS (dyspnea on exertion) ASPERGILLUS ANTIGEN Routine 06/25/2015 8 :18 AM EDT VANEGAS (dyspnea on exertion) CYTOPLASMIC NEUTROPHILIC AB Routine 06/25/2015 8:18 AM EDT VANEGAS (dyspnea on exertion) PROTEINASE-3 ANTIBODY Routine 06/25/2015 8:18 AM EDT VANEGAS (dyspnea on exertion) MYELOPEROXIDASE AB Routine 06/25/2015 8: 18 AM EDT VANEGAS (dyspnea on exertion) HEMOGRAM Routine 06/25/2015 8:18 AM EDT VANEGAS (dyspnea on exertion) DIFFERENTIAL, AUTOMATED Routine 06/25/19 16 8:18 AM EDT VANEGAS (dyspnea on exertion) ASPERGILLUS FUMIGATUS IGE Routine 06/25/2015 8:18 AM EDT VANEGAS (dyspnea on exertion) CBC (WITH DIFF) Routine 06/25/2015 8:18 AM EDT VANEGAS (dyspnea on exertion) documented in this encounter Results * (ABNORMAL) _Urinalysis with microscopic (06/25/2015 8:41 AM EDT) Glucose, Urine Dipstick Negative Negative mg/dL [facility] Protein, Urine Dipstick Negative Negative mg/dL [facility] Bilirubin, Urine Dipstick Negative Negative mg/dL [facility] Comment: Clinical correlation required for positive Urine Bilirubin results as false positive may occur with some drugs and drug related products. If a false positive is suspected a serum total bilirubin should be considered if clinically indicated. Urobilinogen, Urine Dipstick Normal Normal mg/dL [facility] pH, Urn (dipstick) 5.0 5.0 - 8.0 [facility] Blood, Urine Dipstick Negative Negative mg/dL [facility] Ketone, Urine Dipstick Negative Negative mg/dL [facility] Nitrite, Urine Dipstick Negative Negative [facility] Leukocytes, Urine Dipstick Negative Negative [facility] Appearance, Urine Dipstick Hazy(A) Clear [facility] Specific [place] Urine Automated 1.025 1.002 - 1.030 [facility] Color, Urine Dipstick Yellow Yellow [facility] RBC, Urine <1 0 - 4 /HPF [facility] WBC, Urine 2 0 - 5 /HPF [facility] Bacteria, Urine Rare(A) None /HPF [facility] Squamous Epithelial Cells, Urine 18(H) <=4 /HPF [facility] Urine specimen (specimen) 06/25/2015 8:41 AM EDT 06/25/2015 11:32 AM EDT Narrative Resulting Agency Comment Spec In Lab Venancio Esparza Jr., MD URINE ORDERABLES Performing Organization Address City/State/[facility] Co de Phone Number [facility] [place] [address] * Differential, Automated (06/25/2015 8:18 AM EDT) Neutrophil % 54.2 % [facility] Neutrophil Absolute 4.93 1.50 - 6.30 x10(3)/[facility] Lymph % 34.0 % [facility] Lymphocytes Abs 3.1 1.0 - 3.6 x10(3)/[facility] Monocyte % 7.6 % [facility] Monocyte Abs 0.7 0.2 - 1.0 x10(3)/[facility] Eos % 3.7 % [facility] Eosinophils Abs 0.3 0.0 - 0.5 x10(3)/[facility] Basophil % 0.4 % [facility] Baso Absolute 0.0 0.0 - 0.2 x10(3)/[facility] Immature Gran % 0.10 % [facility] Comment: Immature granulocytes(IG's)percentage and absolute count will include metamyelocytes, myelocytes, and promyelocytes. Blood smears from CBCs yielding IG's will be scanned manually for concordance. If this scan disagrees with the automated IG or if promyelocytes are noted, a manual differential will be performed. Immature Gran Absolute 0.01 0.00 - 0.05 x10(3)/mcL [facility] Blood specimen (specimen) 06/25/2015 8:18 AM EDT 06/25/2015 8:20 AM EDT Narrative Resulting Agency Comment Spec In Lab Venancio Esparza Jr., MD HEMATOLOGY ORDER DANIEL [facility] [place] [address] * (ABNORMAL) Hemogram (06/25/2015 8:18 AM EDT) White Blood Cell 9.1 4.0 - 10.0 x10(3)/[facility] Red Blood Cell 4.54 3.93 - 5.22 x10(6)/[facility] Hemoglobin 13.4 11.2 - 15.7 gm/dL [facility] Hematocrit 41.1 34.0 - 45.0 % [facility] Mean Cell Volume 90.5 79.0 - 94.[address] [facility] Mean Cell Hemoglobin 29.5 26.6 - 32.[address] [facility] Mean Cell Hemoglobin Concentration 32.6 32.0 - 36.5 gm/dL [facility] Platelet 206 145 - 370 x10(3)/ L [facility] RDW Standard Deviation 47.0(H) 35.0 - 46.[address] [facility] RDW coefficient of variation 14.3 10.9 - 14.4 % [facility] Mean Platelet Volume 9.5 9.0 - 12.[address] [facility] Blood specimen (specimen) 06/25/2015 8:18 AM EDT 06/25/2015 8:20 AM EDT Narrative Resulting Agency Comment Spec In Lab Venancio Esparza Jr., MD HEMATOLOGY ORDER DANEIL Performing Organization Address City/[facility]/ZIP Co de Phone Number [facility] [place] [address] * Proteinase-3 Antibody (06/25/2015 8:18 AM EDT) Proteinase 3 Antibody <2.0 <=20.0 unit(s) [facility] Blood specimen (specimen) 06/25/2015 8:18 AM EDT 06/25/2015 11:26 AM EDT Narrative Resulting Agency Comment Spec In Lab Venancio Esparza Jr., MD IMMUNOLOGY ORDER DANIEL Performing Organization Address City/[facility] Co de Phone Number [facility] [place] [address] * Myeloperoxidase Ab (06/25/2015 8:18 AM EDT) Myeloperoxidase Antibody <2.0 <=20.0 unit(s) [facility] Blood specimen (specimen) 06/25/2015 8:18 AM EDT 06/25/2015 11:26 AM EDT Narrative Resulting Agency Comment Spec In Lab Venancio Esparza Jr., MD IMMUNOLOGY ORDER DANIEL Performing Organization Address City/[facility] Co de Phone Number [facility] [place] [address] * Cytoplasmic Neutrophilic Ab (06/25/2015 8:18 AM EDT) C-Anca (JULY) Negative Negative [facility] Comment: Test Performed by: [address] [address] Hand Mounter: Luis Felipe Gilmore II, M.D., Ph.D. P-Anca (JULY) Negative Negative [facility] Comment: Negative for cANCA and pANCA patterns by immunofluorescence. Test Performed by: [address] [address] Hand Mounter: Luis Felipe Gilmore II, M.D., Ph.D. Blood specimen (specimen) 06/25/2015 8:18 AM EDT 06/25/2015 9:43 AM EDT Narrative Resulting Agency Comment Spec In Lab Venancio Esparza Jr., MD LAB SEND OUT ORD ERABLES Performing Organization Address [facility] Co de Phone Number [facility] [place] [address] * Aspergillus fumigatus IgE (06/25/2015 8:18 AM EDT) Aspergillus Fumigatus, IgE <0.35 kU/L [facility] Comment: Reference Ranges <0.35 kU/L Class 0: ??Normal 0.35-0.69 kU/L Class 1: ??Low level of allergy, indicative of ongoing sensitization 0.70-3.49 kU/L Class 2: ??Moderate level of allergy, indicative of stronger ongoing sensitization 3.50-17.49 kU/L Class 3: ??High level of allergy, indicative of high level sensitization 17.5-49.9 kU/L Class 4: Very high level of allergy, indicative of very high level sensitization 50.0-100 kU/L Class 5: Very high level of allergy, indicative of very high level sensitization >100 kU/L Class 6: Very high level of allergy, indicative of very high level sensitization Blood specimen (specimen) 06/25/2015 8:18 AM EDT 06/25/2015 11:26 AM EDT Narrative Resulting Agency Comment Spec In Lab Venancio Esparza Jr., MD IMMUNOLOGY ORDER DANIEL Performing Organization Address [facility] Co de Phone Number [facility] [place] [address] * Aspergillus Antigen (06/25/2015 8:18 AM EDT) Aspergillus Ag (MAY) <0.[address] <[address] [facility] Comment: ADDITIONAL INFORMATION This is a qualitative test and the result index value should not be used to determine disease severity or monitor response to therapy. Test Performed by: [facility] - [address] [address] Hand Mounter: Luis Felipe Gilmore II, M.D., Ph.D. Blood specimen (specimen) 06/25/2015 8:18 AM EDT 06/25/2015 9:43 AM EDT Narrative Resulting Agency Comment Spec In Lab Venancio Esparza Jr., MD LAB SEND OUT ORD ERABLES Performing Organization Address [facility] Co de Phone Number [facility] [place] [address] * Immunoglobulin E (IgE) (06/25/2015 8:18 AM EDT) IgE, Total 51 <=101 kU/L [facility] Comment: Pediatric age-specific reference ranges are reflected in result ranges. Adult reference ranges: <25 kU/L ??Normal 25-100 kU/L Equivocal >100 kU/L ??Elevated Blood specimen (specimen) 06/25/2015 8:18 AM EDT 06/25/2015 11:26 AM EDT Narrative Resulting Agency Comment Spec In Lab Venancio Esparza Jr., MD IMMUNOLOGY ORDER DANIEL Performing Organization Address [facility] Co de Phone Number [facility] [place] [address] documented in this encounter Visit Diagnoses Diagnosis VANEGAS (dyspnea on exertion) Other dyspnea and respiratory abnormality documented in this encounter Care Teams Accounting Machine Operator Relationship Specialty Start Date End Date Lorene Aldrich MD [address] [place] [address] PCP - General Family Medicine 06/12/15 documented as of this encounter
--- OUTSIDE RECORDS SUMMARY | 2023-12-05 14:53 | XMS_ITS | Encounter Summary ---
[place] [address] Care Team Providers Care Video Rental Clerk Name Role Phone Lorene Aldrich MD Primary Care Provider [phone] Encounter Details Date Type Department Care Team (Late st Contact Info) Description 05/16/2018 [place] [phone] Evin Harrison Social History Tobacco Use Types Packs/Day Years [...] encounter Miscellaneous Notes * Telephone Encounter - Evin Harrison - 05/16/2018 12:51 PM EST Called patient to schedule New patient appointment, PFT's prior. Appointment booked for 06/[address] Reynolds. Letter sent. documented in this encounter Plan of Treatment Not on file documented as of this encounter Visit Diagnoses Not on filedocumented in this encounter Care Teams Video Rental Clerk Relationship Specialty Start Date End Date Lorene Aldrich MD [address] [place], [place] [id number] PCP - General Family Medicine 06/12/15 documented as of this encounter
--- OUTSIDE RECORDS SUMMARY | 2023-12-05 14:53 | XMS_ITS | Encounter Summary ---
[place] [address] Care Team Providers Care Clin Asst Name Role Phone Lorene Aldrich MD Primary Care Provider [phone] Reason for Visit * Reason Onset Date Comments Prior Authorization 12/22/2015 Encounter Details Date Type Department Care Team (Late st Contact Info) Description 12/22/2015 Telephone [place] [phone] Gina Reynoso ditch repairer Social History Tobacco Use Types Packs/Day Years [...] encounter Miscellaneous Notes * Telephone Encounter - Sarina Reynoso RN - 12/22/2015 3:36 PM EDT Medication Prior Authorization Medication name/dose/directions: Pulmicort GIANLUCA 0.5 MG/2 Health plan: [place] Faxed to health plan on: 12/22/2015 Health plan decision: Approved Quantity approved: 180/90 Authorization number: [id number] Start date: 12/22/2015 End date: 12/21/2016 Patient notified? yes Pharmacy notified? yes documented in this encounter Plan of Treatment Not on file documented as of this encounter Visit Diagnoses Not on filedocumented in this encounter Care Teams Clin Asst Relationship Specialty Start Date End Date Lorene Aldrich MD [address] [place] [address] PCP - General Family Medicine 06/12/15 documented as of this encounter
--- OUTSIDE RECORDS SUMMARY | 2023-12-05 14:53 | XMS_ITS | Encounter Summary ---
Author Organization [facility] [place] [address] Care Team Providers Care Drapery And Upholstery Estimator Name Role Phone Lorene Aldrich MD Primary Care Provider [phone] Encounter Details Date Type Department Care Team (Latest Contact Info) Description 06/08/2018 2:30 PM EDT Office Visit [place] [address] Lei Rodriguez MD [facility] [place] [address] Venous insufficiency of lower extremity, unspecified laterality; Chronic venous insufficiency Social History Tobacco Use Types Packs/Day Years [...] Sign Reading Time Taken Comments Blood Pressure 121/83 06/08/2018 2:28 PM EDT Pulse 81 06/08/2018 2:28 PM EDT Temperature - - Respiratory Rate - - Oxygen Saturation - - Inhaled Oxygen Concentration - - Weight 66.7 kg (147 lb) 06/08/2018 2:28 PM EDT Height 160 cm (5' 3) 06/08/2018 2:28 PM EDT Body Mass Index 26.04 06/08/2018 2:28 PM EDT documented in this encounter Progress Notes * Uriel Isaac MD - 06/08/2018 2:30 PM EDT Vascular Surgery Clinic Note HPI: Ms Jimenez is a 42F with a history of multiple prior LLE DVTs s/p IVC filter placement who presents with symptomatic LLE and pelvic varicose veins. Patient states that she has had multiple priorDVTs of the LLE since the age of 23. The has previously been on coumadin, lovenox, and eliquis for these DVTs, but has not been on anticoagulation for years. She currently has an IVC filter in place.She states that over the past year she has noted worsening swelling of her left lower extremity, particularly of the upper thigh. She states she has prominent varicosities of the medial and posterolateral left upper thigh which are most prominent when she stands, but also cause her discomfort when she sits down. She also has developed a large varicosity along her pubis region, but this does not give her much discomfort. She states she has never tried compression therapy before as she has not been able to acquire a prescription. Review of Systems: General: Denies fevers, chills, night sweats Neuro: Denies lightheadedness, amaurosis, dysarthria, transient weakness or new headaches HEENT: Denies changes in vision, hearing, smell or difficulty swallowing Pulm: Denies shortness of breath, wheezing or cough Card: Denies chest discomfort, palpitations, orthopnea, dyspnea with exersion or claudication GI: Denies nausea, vomiting, constipation, diarrhea, melana or BRBPR : Denies urinary urgency, frequency, dysuria, hematuria Musc: +LLE edema, varicose veins Endo: Denies heat or cold in tolerance Psych: Denies mood changes or feelings of depression or anxiety Past Medical History Patient Active Problem List Diagnosis Code ??? Grave's disease-treated ??? 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 Recurrent deep vein thrombosis (DVT) I82.409 ??? S/P IVC filter Z95.828 ??? Tobacco use Z72.0 ??? Acute exacerbation of chronic obstructive airways disease J44.1 Past Surgical History Past Surgical History: Procedure Laterality Date ??? CREATED BY INTERFACE HEMIARTHROPLASTY,HIP (MONOPOLAR\BIPOLAR HIP) / RIGHT Procedure Date: 12/10/2006 ??? CREATED BY INTERFACE ORIF FEMORAL SHAFT FX. / RIGHT/LG.FRAG SCREWS AND PLATES Procedure Date: 12/10/2006 ??? CREATED BY INTERFACE ORIF TALUS FX / RIGHT/4.0 TIM.SCREWS Procedure Date: 12/14/2006 ??? CREATED BY INTERFACE REMOVAL OF IMPLANT, DEEP-ORTHO / RIGHT/6.5MM SCREWS/FEMUR Procedure Date: 10/03/2008 ??? CREATED BY INTERFACE TOTAL HIP ARTHROPLASTY / RIGHT/PINNACLE LINDA./S-ROM FEMORAL Procedure Date: 08/26/2009 ??? CREATED BY INTERFACE TRACTION PIN INSERTION-ORTHO / RIGHT/TIBIA Procedure Date: 12/10/2006 ??? PRO BRONCHOSCOPY, DIAGNOSTIC W LAVAGE N/A 06/25/2015 BRONCHOSCOPY, RIGID OR FLEXIBLE, WITH BRONCHIAL ALVEOLAR LAVAGE performed by Venancio Esparza Jr., MD at [facility] Functional Status/Social Hx: Social History Socioeconomic History ??? Marital status: Spouse name: Not on file ??? Number of children: Not on file ??? Years of education: Not on file ??? Highest education level: Not on file Occupational History ??? Not on file Social Needs ??? Financial resource strain: Not on file ??? Food insecurity: Worry: Not on file Inability: Not on file ??? Transportation needs: Medical: Not on file Non-medical: Not on file Tobacco Use ??? Smoking status: Current Every Day Smoker ??? Smokeless tobacco: Never Used Substance and Sexual Activity ??? Alcohol use: No ??? Drug use: Yes Types: Other pain meds ??? Sexual activity: Not on file Lifestyle ??? Physical activity: Days per week: Not on file Minutes per session: Not on file ??? Stress: Not on file Relationships ??? Social connections: Talks on phone: Not on file Gets together: Not on file Attends gnosticism service: Not on file Active member of club or organization: Not on file Attends meetings of clubs or organizations: Not on file Relationship status: Not on file ??? Intimate partner violence: Fear of current or ex partner: Not on file Emotionally abused: Not on file Physically abused: Not on file Forced sexual activity: Not on file Other Topics Concern ??? Not on file Social History Narrative ??? Not on file Family Hx: Negative for Thrombosis, Bleeding Disorders Medications: Current Outpatient Medications on File Prior to Visit Medication Sig Dispense Refill ??? aspirin 81 mg Tablet, Delayed Release (E.C.) Take 81 mg by mouth daily. ??? [DISCONTINUED] predniSONE (DELTASONE) 10 mg Tablet Take 4 tabs for 4 d; 3 tabs for 4d, 2 tabs for 4d, 1 tab thereafter 60 tablet 0 ??? budesonide (PULMICORT) 0.5 mg/2 mL Suspension for Nebulization Take 2 mLs by nebulization 2 times daily. 60 mL 12 ??? [DISCONTINUED] azithromycin (ZITHROMAX Z-LEXA) 250 mg Tablet Take 1 tablet by mouth daily. Take 2 today. Then take one daily for 4 days 6 tablet 0 ??? levothyroxine (SYNTHROID) 125 mcg Tablet take 1 tablet by mouth once daily 0 ??? albuterol (PROVENTIL) 2.5 mg /3 mL (0.083 %) Solution for Nebulization Take 3 mLs by nebulization every 4 hours as needed for Wheezing. 180 mL 3 ??? [DISCONTINUED] apixaban (ELIQUIS) 5 mg Tablet Take 5 mg by mouth 2 times daily. ??? [DISCONTINUED] methylPREDNISolone (MEDROL, [place],) 4 mg Tablets, Dose Pack Take 1 tablet by mouthSee Admin Instructions. 21 tablet 3 ??? SUBOXONE 8-2 mg Film 12 mg. 0 ??? PROAIR HFA 90 mcg/actuation HFA Aerosol Inhaler 0 ??? ADVAIR HFA 230-21 mcg/actuation HFA Aerosol Inhaler 0 ??? [DISCONTINUED] levothyroxine (SYNTHROID) 88 mcg Tablet 125 mcg. 0 No current facility-administered medications on file prior to visit. Allergies: Carrot; Adhesive tape; and Coumadin [warfarin] Physical Exam: Temp: -- Heart Rate: [81] Resp: -- BP: (121)/(83) SpO2: -- Heart Rate from SpO2: -- General: NAD, resting comfortably HEENT: NC/AT CVS: Regular rate and rhythm Pulm: nonlabored respirations Abd: soft, non tender Ext: RLE: warm, minimal edema, no bulging varicosities noticeable, +palpable pedal pulses LLE: +edema, +varicosities of upper medial and posterolateral thigh : large varicosity with transverse orientation across pubis Neuro: Grossly nonfocal, moving all extremities. Labs: No results for input(s): WBC, HGB, HCT, PLATELET in the last 72 hours. No results for input(s): NA, K, CL, CO2, BUN, CREATININE, PHOS, CALCIUM in the last 72 hours. Imaging/Studies: Bilateral Venous Valvular Incompetence Study (06/08/18): final read pending Assessment and Plan: Ms Jimenez is a 42F with a history of multiple prior LLE DVTs s/p IVC filter placement who presentswith symptomatic LLE and pelvic varicose veins. The varicosities of the proximal left lower extremity cause her the most discomfort. Patient has never tried compression therapy before. Will provid prescription for bilateral thigh-high compression stockings. If symptoms do not improve with compression therapy, would need to obtain imaging of deep venous system prior to excision of her varicosities, particularly the transverse coursing varicosity along her pubis, as these may represent important collateral drainage pathways if she has chronically thrombo sed deep veins. Would also be helpful to assess her IVC filter. -patient provided prescription for bilateral thigh high compression stockings -return to clinic in 3 months to assess efficacy -consider imaging of deep venous system at that time prior to any surgical stripping of varicosities Uriel Isaac MD Vascular Surgery Resident * Lei Rodriguez MD - 06/08/2018 2:30 PM EDT Vascular Attending Attestation: I evaluated Jennifer Jimenez alongside vascular surgery resident, Dr. Uriel Isaac. Based on my independent findings, I agree with Dr. Isaac's assessment and recommendations for this patient. In summary, the patient has LEFT sided varicosities following a LEFT DVT several years ago. She also has an enlarged cross-pelvic collateral for which the senior technical support engineer could not tell with certainty whether net flow was [id number], or [id number]. If the latter, this vein could be a collateralthat would not be helpful in the long run to excise. We will conduct a trial of compression stockings and bring her back in a few months to determine efficacy. Before excising any superficial veins, however, in this patient I would obtain a CTV of pelvis and abdomen to determine whether all main deep veins are patent. We appreciate being asked to assess Jennifer Jimenez for venous insufficiency. Lei Rodriguez M.D. Section of Vascular Surgery documented in this encounter Plan of Treatment Not on file documented as of this encounter Visit Diagnoses Diagnosis Venous insufficiency of lower extremity, unspecified laterality Chronic venous insufficiency Unspecified venous (peripheral) insufficiency documented in this encounter Care Teams Drapery And Upholstery Estimator Relationship Specialty Start Date End Date Lorene Aldrich MD [address] [place] [address] PCP - General Family Medicine 06/12/15 documented as of this encounter
--- OUTSIDE RECORDS SUMMARY | 2023-12-05 14:53 | XMS_ITS | Encounter Summary ---
[place] [address] Care Team Providers Care Spray Maker Name Role Phone Lorene Aldrich MD Primary Care Provider [phone] Reason for Visit * Reason Onset Date Comments Other 11/02/2015 scheduled follow up Encounter Details Date Type Department Care Team (Late st Contact Info) Description 11/02/2015 [place] [phone] Jose Sánchez Other (scheduled follow up) Social History Tobacco Use Types Packs/Day Years [...] encounter Miscellaneous Notes * Telephone Encounter - Jose Sánchez - 11/02/2015 3:28 PM EDT Jennifer needs to be scheduled for a follow up with Dr. Coughlin As well as have a coordinated smoking cessation appt. Referral Has been placed by Dr. Urbina and Thoracic has tried reaching out to the Patient without success. I have sent a letter to Jennifer asking her to call us. documented in this encounter Plan of Treatment Not on file documented as of this encounter Visit Diagnoses Not on filedocumented in this encounter Care Teams Spray Maker Relationship Specialty Start Date End Date Lorene Aldrich MD [address] [place] [address] PCP - General Family Medicine 06/12/15 documented as of this encounter
--- OUTSIDE RECORDS SUMMARY | 2023-12-05 14:53 | XMS_ITS | Encounter Summary ---
[place] [address] Care Team Providers Care Doll Dresser Name Role Phone Lorene Aldrich MD Primary Care Provider [phone] Encounter Details Date Type Department Care Team (Late st Contact Info) Description 07/02/2015 Telephone [place] [phone] Gina Reynoso, RN Social History Tobacco Use Types Packs/Day Years [...] Miscellaneous Notes * Telephone Encounter - Sarina Reynoso, RN - 07/02/2015 1:58 PM EDT Pt called and states she feels much worse after being on antibiotics. No improvement and she says she actually feels worse.coughing .yo documented in this encounter Plan of Treatment Not on file documented as of this encounter Visit Diagnoses Not on filedocumented in this encounter Care Teams Doll Dresser Relationship Specialty Start Date End Date Lorene Aldrich MD [address] [place] [address] PCP - General Family Medicine 06/12/15 documented as of this encounter
--- OUTSIDE RECORDS SUMMARY | 2023-12-05 14:53 | XMS_ITS | Encounter Summary ---
Author Organization [facility] [address] [place] [address] Care Team Providers Care Power Distribution Engineer Name Role Phone Lorene Aldrich MD Primary Care Provider [phone] Encounter Details Date Type Department Care Team (Late st Contact Info) Description 01/16/2016 Orders [place] [phone] Tommie Reynolds MD [facility] [place] [address] Acute exacerbation of chronic obstructive airways disease [...] as of this encounter Progress Notes * Tommie Reynolds MD - 01/16/2016 8:18 AM EDT Called wheezing, coughing, sputum production, nasal congestion. Started back on pred (to stay on 10indefinitely, or till seen) and bactrim. Suggested that she may need sinus eval (AND smoking cessation). documented in this encounter Plan of Treatment Not on file documented as of this encounter Visit Diagnoses Diagnosis Acute exacerbation of chronic obstructive airways disease Obstructive chronic bronchitis with exacerbation documented in this encounter Care Teams Power Distribution Engineer Relationship Specialty Start Date End Date Lorene Aldrich MD [address] [place] [address] PCP - General Family Medicine 06/12/15 documented as of this encounter
--- OUTSIDE RECORDS SUMMARY | 2023-12-05 14:53 | XMS_ITS | Encounter Summary ---
Author Organization [facility] [place] [address] Care Team Providers Care Binder Lockstitch Name Role Phone Lorene Aldrich MD Primary Care Provider [phone] Reason for Visit * Reason Onset Date Comments Medication Refill 11/02/2015 Encounter Details Date Type Department Care Team (Late st Contact Info) Description 11/02/2015 [place] [address] Myranda Cooper MD [facility] [place] [address] Social History Tobacco Use Types Packs/Day Years [...] on filedocumented in this encounter Care Teams Binder Lockstitch Relationship Specialty Start Date End Date Lorene Aldrich MD [address] [place] [address] PCP - General Family Medicine 06/12/15 documented as of this encounter
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
--- OUTSIDE RECORDS SUMMARY | 2023-12-05 14:53 | XMS_ITS | Encounter Summary ---
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 documented in this encounter Plan of Treatment Not on file documented as of this encounter Visit Diagnoses Not on filedocumented in this encounter Care Teams Pulmonologist/Intensivist Relationship Specialty Start Date End Date Lorene Aldrich MD [address] [place] [address] PCP - General Family Medicine 06/12/15 documented as of this encounter
--- OUTSIDE RECORDS SUMMARY | 2023-12-05 14:53 | XMS_ITS | Encounter Summary ---
[place] [address] Care Team Providers Care Operater Name Role Phone Lorene Aldrich MD Primary Care Provider [phone] Encounter Details Date Type Department Care Team (Late st Contact Info) Description 10/25/2019 Telephone [place] [id number] Gisel Covington Social History Tobacco Use Types Packs/Day Years [...] encounter Miscellaneous Notes * Telephone Encounter - Gisel Covington - 10/25/2019 1:42 PM EDT Patient no showed 3 follow up appointments on 04/02/19, 08/26/19, and 10/08/19. 3 letters of the no show appointments have been sent. Last seen by Dr. Rodriguez 06/08/18 documented in this encounter Plan of Treatment Not on file documented as of this encounter Visit Diagnoses Not on filedocumented in this encounter Care Teams Operater Relationship Specialty Start Date End Date Lorene Aldrich MD [address] [place] [address] PCP - General Family Medicine 06/12/15 documented as of this encounter
--- OUTSIDE RECORDS SUMMARY | 2023-12-05 14:53 | XMS_ITS | Encounter Summary ---
[place] [address] Care Team Providers Care Meat Grinder Name Role Phone Lorene Aldrich MD Primary Care Provider [phone] Reason for Referral * Diagnostic Test (Routine) - Closed Specialty Diagnoses / Procedures Referred By Contac t Referred To Contact Radiology Diagnoses Bronchiectasis with acute exacerbation Procedures CT Chest wo Contrast (Generic) Tommie Reynolds MD [facility] [place] [address] [facility] [place] [address] Referral ID Status Reason Start Date Expiration Date V isits Requested Visits Authorized [id number] Closed Specialty Service Requested 06/14/2018 09/12/2018 1 1 Reason for Visit * Diagnostic Test (Routine) - Closed Specialty Diagnoses / Procedures Referred By Contac t Referred To Contact Radiology Diagnoses Bronchiectasis with acute exacerbation Procedures CT Chest wo Contrast (Generic) Tommie Reynolds MD [facility] [place] [address] [facility] [place] [address] Referral ID Status Reason Start Date Expiration Date V isits Requested Visits Authorized [id number] Closed Specialty Service Requested 06/14/2018 09/12/2018 1 1 Encounter Details Date Type Department Care Team (Latest Contact Info) Description 06/20/2018 9:36 AM EDT - 06/20/2018 11:59 PM EDT Hospital [place] [address] Tommie Reynolds MD [facility] [place] [address] Bronchiectasis with acute exacerbation Discharge Disposition: Home Social History Tobacco Use [...] 90 mcg/actuation HFA Aerosol Inhaler 0 05/29/2015 PULMICORT FLEXHALER 180 mcg/actuation Aerosol Powdr Breath Activated INHALE 1 PUFFS BY MOUTH TWICE DAILY. 0 05/17/2018 aspirin 81 mg Tablet, Delayed Release (E.C.) Take 81 mg by mouth daily. SUBOXONE 8-2 mg Film 12 mg. 0 06/02/2015 rivaroxaban (XARELTO) 10 mg TabletIndications:Recurr ent deep vein thrombosis (DVT) Take 1 tablet by mouth daily for 90 days. 90 tablet 06/20/2018 09/18/2018 levothyroxine (SYNTHROID) 125 mcg Tablet 137 mcg. 0 09/11/2015 09/17/2019 documented as of this encounter Plan of Treatment Not on file documented as of this encounter Procedures Procedure Name Priority Date/Time Associated Diagnosis Comments CT CHEST WO CONTRAST (GENERIC) Routine 06/20/2018 9:46 AM EDT Bronchiectasis with acute exacerbation documented in this encounter Results * CT Chest wo Contrast (Generic) (06/20/2018 9:46 AM EDT) Anatomical Region Laterality Modality Chest Computed Tomogra phy Impressions 06/20/2018 1:14 PM EDT No bronchiectasis or other significant abnormality. Thank you for letting us participate in the care of this patient. For questions regarding this report, please contact the number below. ? Narrative 06/20/2018 1:14 PM EDT EXAMINATION: CT CHEST WO CONTRAST (GENERIC) CLINICAL HISTORY: F/U bronchiectasis TECHNIQUE: 3.75 mm thick axial contiguous sections were obtained through the chest via helical acquisition without intravenous contrast administration. Thin-section reconstructions as well as coronal and sagittal reformatted images were generated. COMPARISON: CT 06/05/[address] 12/11/2006 FINDINGS: Pulmonary parenchyma: No significant findings. Stable 3 mm nodule RIGHT upper lobe. Airways: No significant findings. No bronchiectasis. Pleura: No significant findings. Lymph nodes:No significant findings. Heart, pericardium, and great vessels: No significant findings. Other mediastinal structures: No significant findings. Lower neck: No significant findings. Upper abdomen: No significant findings. IVC filter in IVC. Body wall soft tissues: No significant findings. Skeletal structures: No significant findings. Procedure Note Luis Felipe Mcdonough MD - 06/20/2018 EXAMINATION: CT CHEST WO CONTRAST (GENERIC) CLINICAL HISTORY: F/U bronchiectasis TECHNIQUE: 3.75 mm thick axial contiguous sections were obtained throughthe chest via helical acquisition without intravenous contrastadministration. Thin-section reconstructions as well as coronal and sagittal reformattedimages were generated. COMPARISON: CT 06/05/[address] 12/11/2006 FINDINGS: Pulmonary parenchyma: No significant findings. Stable 3 mm nodule RIGHTupper lobe. Airways: No significant findings. No bronchiectasis. Pleura: No significant findings. Lymph nodes:No significant findings. Heart, pericardium, and great vessels: No significant findings. Other mediastinal structures: No significant findings. Lower neck: No significant findings. Upper abdomen: No significant findings. IVC filter in IVC. Body wall soft tissues: No significant findings. Skeletal structures: No significant findings. IMPRESSION No bronchiectasis or other significant abnormality. Thank you for letting us participate in the care of this patient. Forquestions regarding this report, please contact the number below. Electronically signed by: Luis Felipe Mcdonough [facility]([phone]), at 06/20/2018 1:14 PM Tommie Card MD IMG CT ORDERABLES documented in this encounter Visit Diagnoses Diagnosis Bronchiectasis with acute exacerbation documented in this encounter Care Teams Meat Grinder Relationship Specialty Start Date End Date Lorene Aldrich MD [address] [place] [address] PCP - General Family Medicine 06/12/15 documented as of this encounter
--- OUTSIDE RECORDS SUMMARY | 2023-12-05 14:53 | XMS_ITS | Encounter Summary ---
[place] [address] Care Team Providers Care Technical Solution Architect Name Role Phone Lorene Aldrich MD Primary Care Provider [phone]- [phone] Reason for Visit * Reason Onset Date Comments Medication Refill 07/17/2015 Encounter Details Date Type Department Care Team (Late st Contact Info) Description 07/17/2015 [place] [address] Gina Reynoso, RN Moderate persistent asthma with exacerbation Social History Tobacco Use Types Packs/Day Years [...] as of this encounter Visit Diagnoses Diagnosis Moderate persistent asthma with exacerbation Unspecified asthma, with exacerbation documented in this encounter Care Teams Technical Solution Architect Relationship Specialty Start Date End Date Lorene Aldrich MD [address] [place] [address] PCP - General Family Medicine 06/12/15 documented as of this encounter
--- OUTSIDE RECORDS SUMMARY | 2023-12-05 14:53 | XMS_ITS | Encounter Summary ---
[place] [address] Care Team Providers Care Comptometer Operator Name Role Phone Lorene Aldrich MD Primary Care Provider [phone] Reason for Referral * Consultation (Routine) - Closed Specialty Diagnoses / Procedures Referred By Chris lobo Referred To Contact Vascular Surgery Diagnoses Neuropathy Varicose veins of lower extremity, unspecified laterality, unspecified whether complicated ROUTINE, MD/NILE, JAYSON Lorene Aldrich MD [address] [place] [address] [facility] [address] [address] Referral ID Status Reason Start Date Expiration Date V isits Requested Visits Authorized [id number] Closed Consult, Test & Treat 02/01/2023 02/01/2024 1 1 Encounter Details Date Type Department Care Team (Latest Contact Info) Description 02/01/2023 Transcribe Orders eDH Incoming Referrals [phone] Lorene Aldrich MD [address] [place], [place] [id number] Neuropathy; Varicose veins of lower extremity, unspecified laterality, [...] Associated Diagnoses Orde r Schedule Referral to Vascular Surgery Outpatient Referral Routine Neuropathy Varicose veins of lower extremity, unspecified laterality, unspecified whether complicated Ordered: 02/01/2023 documented as of this encounter Visit Diagnoses Diagnosis Neuropathy Mononeuritis of unspecified site Varicose veins of lower extremity, unspecified laterality, unspecified whether complicated documented in this encounter Care Teams Comptometer Operator Relationship Specialty Start Date End Date Lorene Aldrich MD [address] [place] [address] PCP - General Family Medicine 06/12/15 documented as of this encounter
--- OUTSIDE RECORDS SUMMARY | 2023-12-05 14:53 | XMS_ITS | Encounter Summary ---
Author Organization [facility] [place] [address] Care Team Providers Care Commercial Solar Sales Consultant Name Role Phone Lorene Aldrich MD Primary Care Provider Encounter Details Date Type Department Care Team (Late st Contact Info) Description 06/29/2015 Orders [place] [address] [place] Coughlin MD [facility] [place] [address] Acute bronchitis due to Haemophilus influenzae Social History Tobacco Use Types Packs/Day Years [...] of this encounter Visit Diagnoses Diagnosis Acute bronchitis due to Haemophilus influenzae Acute bronchitis documented in this encounter Care Teams Commercial Solar Sales Consultant Relationship Specialty Start Date End Date Lorene Aldrich MD [address] [place] [address] PCP - General Family Medicine 06/12/15 documented as of this encounter
--- OUTSIDE RECORDS SUMMARY | 2023-12-05 14:53 | XMS_ITS | Encounter Summary ---
[facility] Organization [facility] [place] [place] [address] Care Team Providers Care Felt Machine Mechanic Name Role Phone Camille Aldrich MD Primary Care Provider [phone] Reason for Visit * Auth/Cert Specialty Diagnoses / Procedures Referred By Contac t Referred To Contact Diagnoses VANEGAS Procedures PRO BRONCHOSCOPY, DIAGNOSTIC BRONCHOSCOPY Referral ID Status Reason Start Date Expiration Date Visits Re quested Visits Authorized [id number] 1 1 Encounter Details Date Type Department Care Team (Late st Contact Info) Description 06/25/2015 9:00 AM EDT - 06/25/2015 10:30 AM EDT [place] [id number] Venancio Esparza Jr., MD [facility] [place] [address] BRONCHOSCOPY, RIGID OR FLEXIBLE, WITH BRONCHIAL ALVEOLAR LAVAGE (WRVU 2.63) Social History Tobacco Use Types Packs/Day Years Used Date Smoking Tobacco: Every Day Tobacco Cessation:Ready to Q uit: No Alcohol Use Standard Drinks/Week Comments No 0 (1 standard drink = 0.6 oz pur e alcohol) Sex and Gender Information Value Date Recorded Sex Assigned at Female 11/19/2023 10:16 AM EDT Gender Identity Female 11/19/2023 10:16 AM EDT Sexual Orientation Not on file documented as of this encounter Last Filed Vital Signs Vital Sign Reading Time Taken Comments Blood Pressure 110/76 06/25/2015 10:12 AM EDT Pulse 89 06/25/2015 10:12 AM EDT Temperature 37 ??C (98.6 ??F) 06/25/2015 9:02 AM EDT Respiratory Rate 18 06/25/2015 9:02 AM EDT Oxygen Saturation 95% 06/25/2015 10:12 AM EDT Inhaled Oxygen Concentration - - Weight - - Height - - Body Mass Index - - documented in this encounter Discharge Instructions * Discharge Instructions* Carlos Uriostegui RN - 06/25/2015 10:44 AM EDT Bronchoscopy What to expect at home This care sheet gives you a general idea of what to expect after the test Activity Because of the sedation that you received Your judgement and reaction time are affected ?? Go home and continue to rest for the next 1 or 2 days. Avoid strenuous activities. You may resume normal activities in 48 hours. ?? Change from one position to the next slowly. You may lose your balance unexpectedly. ?? Be careful on stairs as you may be unsteady on your feet. FOR THE NEXT 24 HRS ?? DO NOT DRIVE OR OPERATE ANY MACHINERY ?? DO NOT DRINK ALCOHOLIC BEVERAGES ?? DO NOT SIGN LEGAL DOCUMENTS ?? If you are a smoker: DO NOT SMOKE WHILE YOU ARE ALONE Diet ?? Continue on liquids for the next 2 hours then you can resume your normal diet ?? If it is painful to swallow, start out with cold drinks, popsicles, and ice cream. Next, try soft foods like pudding, yogurt, canned or cooked fruit, scrambled eggs, and mashed potatoes. Avoid eating hard or scratchy foods like chips or raw vegetables. Avoid orange or tomato juice and other acidic foods that can sting the throat. Medicines ?? You may notice a sore throat, this should resolve on it's own. You may use ice chips, popsicles or lozenges to help control the discomfort Other Instructions ?? You may cough up small amounts of blood, this should resolve on it's own. IV SITE may get red or tender this is normal. You may use warm compresses 20 minutes at a time on and off for the next day or so. If the tenderness +/or redness increases or foul drainage and a red streak occurs, please contact your PCP When should you call for help? Call 911 anytime you think you may need Emergency care. For example You passed out ( lost consciousness) You have sudden chest pain or shortness of breath You cough up large amounts of bright red blood You have severe pain in your chest You have severe trouble breathing Call your Doctor now or seek medical attention You cough up more than 1/2 cup blood You have pain that does not get better after you take pain medicine You have a fever over 100 F or chills that last over eight (8) hrs and is not relieved with Tylenoltablets every 4 hours ( not to exceed 2 extra-strength or 1000 mg at a time) You still sound hoarse after a few days You have bubbles under the skin around the collarbone. These may crackle and pop when you press on them. Watch closely for changes in your health, and be sure to contact your Doctor if you have any problems Contact Numbers Monday - Monday Pulmonary Clinic [phone] Same Day Endoscopy [phone] Otherwise call [facility] and ask to speak to the Pulmonary Doctor salesperson neckties [phone] Discharge instructions reviewed with patient who expresses understanding documented in this encounter Medications at Time of Discharge Medication Sig Dispensed Refills Start Date End Date PROAIR HFA 90 mcg/actuation HFA Aerosol Inhaler 0 05/29/2015 SUBOXONE 8-2 mg Film 12 mg. 0 06/02/2015 predniSONE (DELTASONE) 10 mg TabletIndications:Modera te persistent asthma with acute exacerbation Take 3 tablets by mouth daily for 10 days. 30 tablet 12/20/2015 12/30/2015 predniSONE (DELTASONE) 10 mg TabletIndications:Modera te persistent asthma with exacerbation Take 2 tablets by mouth daily for 30 days. 60 tablet 0 06/19/2015 07/17/2015 predniSONE (DELTASONE) 10 mg Tablet 0 06/08/2015 09/14/2015 levothyroxine (SYNTHROID) 88 mcg Tablet 125 mcg. 0 05/29/2015 06/08/2018 albuterol (PROVENTIL) 2.5 mg /3 mL (0.083 %) Solution for Nebulization 0 05/29/2015 10/19/2015 ADVAIR HFA 230-21 mcg/actuation HFA Aerosol Inhaler 0 03/25/2015 06/11/2018 diaZEPam (VALIUM) 10 mg tablet 10 MG = 1 Tablet(s), PO, take 1/2 hr before MRI 06/08/2010 10/19/2015 documented as of this encounter H&P Notes * Marshall Coughlin T - 06/25/2015 8:48 AM EDT Pulmonary Pre-Procedure History & Physical Procedure: Bronchoscopy See consult/clinic note. PHYSICAL EXAM: No data found. HEENT: Oropharynx clear. LUNGS: Clear to auscultation bilaterally. HEART: Regular rhythm, normal S1, S2. ABDOMEN: Soft, non tender, non distended. A/P: Proceed with bronchoscopy. Risks and benefits of the procedure explained to the patient. Consent signed. [facility] documented in this encounter Plan of Treatment Not on file documented as of this encounter Procedures Procedure Name Priority Date/Time Associated Diagnosis Comments FUNGUS CULTURE & CALC STAIN Routine 06/25/2015 10:00 AM EDT NON-CHILD PSYCHOLOGY TEACHER FINAL REPORT Routine 06/25/2015 10:00 AM EDT AFB CULTURE Routine 06/25/2015 10:00 AM EDT PNEUMOCYSTIS SMEAR BY DFA Routine 06/25/2015 10:00 AM EDT FUNGAL STAIN Routine 06/25/2015 10:00 AM EDT LOWER RESPIRATORY CULTURE Routine 06/25/2015 10:00 AM EDT FUNGUS CULTURE Routine 06/25/2015 10:00 AM EDT CYTOPATHOLOGY NON-GYNECOLOGICAL Routine 06/25/2015 10:00 AM EDT BRONCHOSCOPY, RIGID OR FLEXIBLE, WITH BRONCHIAL ALVEOLAR LAVAGE (WRVU 2.63) 06/25/2015 9:31 AM EDT VANEGAS (dyspnea on exertion) BRONCHOSCOPY Routine 06/25/2015 7:36 AM EDT documented in this encounter Results * Non-Multiple Punch Press Operator Final Report (06/25/2015 10:00 AM EDT) Diagnosis Discussion [id number] ? Location: 4T; EA10; A The signing pathologist has (i) examined the relevant preparation(s) for the specimen(s) and (ii) rendered or confirmed the diagnosis(es). . ? Non-Multiple Punch Press Operator Final DIAGNOSIS Negative for Malignancy 06/26/15 ?Screened by: ? DMG ?Rescreened by: ?? SUSANNE 06/26/15 ?Verified by: ? Cheryl SRIVASTAVA, Corw Liriano ? Pathologist ? (Electronic Signature) DISCUSSION Bronchial Alveolar Lavage: Predominantly macrophages. Cell block shows similar features. Differential Cell Count: Macrophages 95%, Neutrophils 3%, Lymphocytes 1%, Eosinophils 0%, Bronchials 1%. CLINICAL INFORMATION Specimen Source : ??Bronchial Alveolar Lavage. Pertinent Clinical Data and Significant Therapy: ?? Cough, wheeze, tree in bud opacities Clinical Impression : ?? ABPA Pertinent Radiologic Findings ??: ?? (not provided) Gross Description: ?? Received ??fresh, approximately 25 ml. total volume of ?? mucoid, colorless fluid. ?? Total Preparation: Liquid Based Prep 1; ??Cell Block 1. 06/26/2015 1:18 PM EDT [facility] BRONCHIAL STRUCTURE / Unknown 06/25/2015 10:00 AM EDT 06/25/2015 10:00 AM EDT Marshall Coughlin MD PATHOLOGY/CYTOLOGY O RDERABLES Performing Organization Address [facility]/[place] [address] * Calcofluor White Stain (06/25/2015 10:00 AM EDT) Calcofluor Stain Calcofluor White Preparation: Negative [facility] Bronchoalveolar lavage fluid specimen (specimen) 06/25/2015 10:00 AM EDT 06/25/2015 11:20 AM EDT Narrative Resulting Agency Comment Spec In Lab Venancio Esparza Jr., MD MICROBIOLOGY - G ENERAL ORDERABLES Performing Organization Address [facility] [place] [place] [address] * Fungus culture (06/25/2015 10:00 AM EDT) Fungus Culture No Fungus isolated [facility] Bronchoalveolar lavage fluid specimen (specimen) 06/25/2015 10:00 AM EDT 06/25/2015 11:20 AM EDT Narrative Resulting Agency Comment Spec In Lab Venancio Esparza Jr., MD MICROBIOLOGY - G ENERAL ORDERABLES Performing Organization Address [facility] [place] [address] * AFB culture Bronchial Alveolar Lavage (06/25/2015 10:00 AM EDT) Acid Fast Bacilli Culture No Acid Fast Bacilli isolated If active tuberculosis is suspected, the patient should be on [employer]. Call CHIP [phone]) for assistance if needed. [facility] Acid Fast Stain No Acid Fast Bacilli seen [facility] Bronchoalveolar lavage fluid specimen (specimen) 06/25/2015 10:00 AM EDT 06/25/2015 11:20 AM EDT Narrative Resulting Agency Comment Spec In Lab Venancio Esparza Jr., MD MICROBIOLOGY - G ENERAL ORDERABLES Performing Organization Address City/[facility] Co de Phone Number [facility] [place] [address] * Pneumocystis Carinii Stain Bronchial Alveolar Lavage (06/25/2015 10:00 AM EDT) Pneumocystis Carinii Stain Fluorescent stain negative for: Pneumocystis jiroveci (carinii) [facility] Bronchoalveolar lavage fluid specimen (specimen) 06/25/2015 10:00 AM EDT 06/25/2015 11:20 AM EDT Narrative Resulting Agency Comment Spec In Lab MD SOREN Fields Jr. - G ENERAL ORDERABLES Performing Organization Address [facility] Co de Phone Number [facility] [place] [address] * (ABNORMAL) Lower Respiratory Culture Bronchial Alveolar Lavage (06/25/2015 10:00 AM EDT) Lower Respiratory Culture Many Haemophilus influenzae : Beta-lactamase result predicts organism is likely resistant to ampicillin and penicillin. Few mixed bacterial morphotypes suggestive of normal upper respiratory benjamin (A) [facility] Reviewed Stain Few White Blood Cells seen No squamous epithelial cells seen No microorganisms seen. (A) [facility] Gram Stain Few White Blood Cells seen No microorganisms seen. (A) [facility] Organism Haemophilus influenzae(A) [facility] Bronchoalveolar lavage fluid specimen (specimen) 06/25/2015 10:00 AM EDT 06/25/2015 11:20 AM EDT Narrative Resulting Agency Comment Spec In Lab Venancio Esparza Jr., MD MICROBIOLOGY Chao G ENERAL ORDERABLES Performing Organization Address [facility] Co de Phone Number [facility] [place] [address] * Cytopathology Non-Gynecological (06/25/2015 10:00 AM EDT) AP Specimen 06/25/2015 10:0 0 AM EDT 06/25/2015 11:09 AM EDT Narrative [facility] - 06/25/2015 11:09 AM EDT Specimen requisition ordered. ??Separate Pathology report to follow Resulting Agency Comment Spec In Lab Venancio Esparza Jr., MD PATHOLOGY/CYTOLO GY ORDERABLES Performing Organization Address [facility]/State/ZIP Co de Phone Number [facility] [place] [address] * BRONCHOSCOPY (06/25/2015 7:36 AM EDT) BRONCHOSCOPY [facility] Bronchoscopy ___ Patient Name: Jennifer Jimenez ? Procedure Date: 06/25/2015 7:36 AM ? Age: 39 ? ___ Procedure: ?Bronchoscopy Indications: ?Bilateral infiltrate Providers: ?Venancio Esparza Jr, MD, Marshall ?MD Ced (Fellow), Bay Dominguez ?Malissa, MARCI, Keena Joaquin Referring : ? Camille Aldrich Requesting Physician: Medicines: ?Fentanyl 100 mcg IV, Midazolam 5.5 ?mg IV, Lidocaine 4% via nebulizer ?with Albuterol 2.5 mg, Lidocaine 4% ?applied to cords mL, Diphenhydramine ?(Benadryl) 25 mg IV Complications: ?No immediate complications ___ Procedure: ?Pre-Anesthesia Assessment: ?- A History and Physical has been ?performed. The patient's ?medications, allergies and ?sensitivities have been reviewed. ?- The risks and benefits of the ?procedure and the sedation options ?and risks were discussed with the ?patient. All questions were answered ?and informed consent was obtained. ?After obtaining informed consent, ?the Bronchoscope was introduced ?through the mouth and advanced to ?the tracheobronchial tree. The ?procedure was accomplished without ?difficulty. The patient tolerated ?the procedure well. Findings: ? The oropharynx appears normal. The larynx appears ? normal. The vocal cords move normally with phonation ? and breathing. The subglottic space is normal. The ? trachea is of normal caliber. The kong is sharp. ? The tracheobronchial tree was examined to at least ? the first subsegmental level. Bronchial mucosa and ? anatomy are normal although there was a little ? pitting most prominent in the right middle lobe; ? there are no endobronchial lesions, and minimal ? yellow secretions. Bronchoalveolar lavage was ? performed in the lingula of the lung and sent for ? cell count, bacterial culture, fungal & AFB analysis ? and cell count with differential.. 100 mL of fluid ? were instilled. 50 mL were returned. The return was ? cloudy and mucoid. There were no mucoid plugs in the ? return fluid Multiple specimens were obtained and ? pooled into one specimen, which was sent for analysis Impression: ? - The examination was grossly normal. ?- Bronchoalveolar lavage was ?performed. Recommendation: ? Await test results Attending Participation: ? I was present and participated during the entire ? procedure, including non-matos portions. ___ Venancio Esparza Jr, MD 06/25/2015 10:26 AM Marshall Coughlin MD Number of Addenda: 0 Note Initiated On: 06/25/2015 7:36 AM PROVATION 06/25/2015 7:36 AM EDT Camille Aldrich MD GENSURG ORDERS NO P OSTOP PAIN QUESTION PROVATION documented in this encounter Visit Diagnoses Diagnosis VANEGAS (dyspnea on exertion) Other dyspnea and respiratory abnormality documented in this encounter Administered Medications Inactive Administered Medications - up to 3 most recent administrations Medication Order MAR Action Action Date Dose Rate Site albuterol (PROVENTIL) nebulizer solution ONCE PRN, Starting on Eunice 06/25/15 at 0912, Until Eunice 06/25/15 at 1147, Intra-Operative (Intra-Procedure), Routine Given 06/25/2015 9:12 AM EDT 2.5 mg diphenhydrAMINE (BENADRYL) injection ONCE PRN, Starting on Eunice 06/25/15 at 0950, Until Eunice 06/25/15 at 1147, Intra-Operative (Intra-Procedure), Routine Given 06/25/2015 9:50 AM EDT 25 mg Right Arm fentaNYL 50 mcg/mL multi-dose injection ONCE PRN, Starting on Eunice 06/25/15 at 0937, Until Eunice 06/25/15 at 1147, Intra-Operative (Intra-Procedure), Routine Given 06/25/2015 9:45 AM EDT 50 mcg Right Arm Given 06/25/2015 9:37 AM EDT 50 mcg Ri ght Arm lidocaine (XYLOCAINE) 2 % jelly ONCE PRN, Starting on Eunice 06/25/15 at 0956, Until Eunice 06/25/15 at 1147, Intra-Operative (Intra-Procedure) Given 06/25/2015 9:56 AM EDT 1 Bottle lidocaine (XYLOCAINE) 4 % (40 mg/mL) external solution ONCE PRN, Starting on Eunice 06/25/15 at 0913, Until Eunice 06/25/15 at 1147, Intra-Operative (Intra-Procedure) Given 06/25/2015 9:55 AM EDT 9 mLs Given 06/25/2015 9:44 AM EDT 3 mLs Given 06/25/2015 9:13 AM EDT 3 mLs midazolam (PF) (VERSED) 1 mg/mL multi-dose injection ONCE PRN, Starting on Eunice 06/25/15 at 0937, Until Eunice 06/25/15 at 1147, Intra-Operative (Intra-Procedure), Routine Given 06/25/2015 9:58 AM EDT 0.5 mg Right Arm Given 06/25/2015 9:52 AM EDT 1 mg Ri ght Arm Given 06/25/2015 9:48 AM EDT 1 mg Ri ght Arm documented in this encounter Active and Recently Administered Medications Times are shown in EDT. PRN Medication Order 06/23/2015 06/24/2015 06/25/2015 albuterol (PROVENTIL) nebulizer solution (CANCELED) ONCE PRN, Starting on Eunice 06/25/15 at 0912, Until Eunice 06/25/15 at 1147, Intra-Operative (Intra-Procedure), Routine 0912 (Given - Provid er: Bay Leonardo RN) diphenhydrAMINE (BENADRYL) injection (CANCELED) ONCE PRN, Starting on Eunice 06/25/15 at 0950, Until Eunice 06/25/15 at 1147, Intra-Operative (Intra-Procedure), Routine 0950 (Given - Provid er: Bay Leonardo RN) fentaNYL 50 mcg/mL multi-dose injection (CANCELED) ONCE PRN, Starting on Eunice 06/25/15 at 0937, Until Eunice 06/25/15 at 1147, Intra-Operative (Intra-Procedure), Routine 0937 (Given - Provid er: Bay Leonardo RN)0945 (Given - Provider: Bay Leonardo RN) lidocaine (XYLOCAINE) 2 % jelly (CANCELED) ONCE PRN, Starting on Eunice 16 at 0956, Until Eunice 06/25/15 at 1147, Intra-Operative (Intra-Procedure) 0956 (Given - Provid er: Venancio Esparza Jr., MD) lidocaine (XYLOCAINE) 4 % (40 mg/mL) external solution (CANCELED) ONCE PRN, Starting on Eunice 06/25/15 at 0913, Until Eunice 06/25/15 at 1147, Intra-Operative (Intra-Procedure) 0913 (Given - Provid er: Bay Leonardo RN)0944 (Given - Provider: Bay Leonardo RN - Comment: atomized)0955 (Given - Provider: Bay Leonardo RN) midazolam (PF) (VERSED) 1 mg/mL multi-dose injection (CANCELED) ONCE PRN, Starting on Eunice 16 at 0937, Until Eunice 16 at 1147, Intra-Operative (Intra-Procedure), Routine 0937 (Given - Provid er: Bay Leonardo RN)0940 (Given - Provider: Bay Leonardo RN)0945 (Given - Provider: Bay Leonardo RN)0948 (Given - Provider: Bay Leonardo RN)0952 (Given - Provider: Bay Leonardo RN)0958 (Given - Provider: Venancio Esparza Jr., MD) documented in this encounter Care Teams Felt Machine Mechanic Relationship Specialty Start Date End Date Camille Aldrich MD [address] [place] [address] PCP - General Family Medicine 06/12/15 documented as of this encounter
--- OUTSIDE RECORDS SUMMARY | 2023-12-05 14:53 | XMS_ITS | Encounter Summary ---
[place] [address] Care Team Providers Care Senior Tax Manager Name Role Phone Lorene Aldrich MD Primary Care Provider Encounter Details Date Type Department Care Team (Late st Contact Info) Description 12/22/2015 [place] [phone] Gina Reynoso RN Social History Tobacco Use Types Packs/Day [...] Encounter - Sarina Reynoso RN - 12/22/2015 8:12 AM EDT Pt feels like she needs an abx? * Telephone Encounter - Sarina Reynoso RN - 12/22/2015 8:09 AM EDT Pt feels worse since Monday and feels like documented in this encounter Plan of Treatment Not on file documented as of this encounter Visit Diagnoses Not on filedocumented in this encounter Care Teams Senior Tax Manager Relationship Specialty Start Date End Date Lorene Aldrich MD [address] [place] [address] PCP - General Family Medicine 06/12/15 documented as of this encounter
--- OUTSIDE RECORDS SUMMARY | 2023-12-05 14:53 | XMS_ITS | Encounter Summary ---
[place] [address] Care Team Providers Care Hogshead Mat Assembler Name Role Phone Lorene Aldrich MD Primary Care Provider [phone] Encounter Details Date Type Department Care Team (Late st Contact Info) Description 01/29/2019 Orders [place] [address] Lam Junior MD [facility] [place] [address] Presence of IVC filter Social History Tobacco Use Types Packs/Day Years [...] as of this encounter Visit Diagnoses Diagnosis Presence of IVC filter Other postprocedural status documented in this encounter Care Teams Hogshead Mat Assembler Relationship Specialty Start Date End Date Lorene Aldrich MD [address] [place] [address] PCP - General Family Medicine 06/12/15 documented as of this encounter
--- OUTSIDE RECORDS SUMMARY | 2023-12-05 14:53 | XMS_ITS | Encounter Summary ---
[facility] Organization [facility] [place] [address] Care Team Providers Care Hospital Superintendent Name Role Phone Lorene Aldrich MD Primary Care Provider [phone] Encounter Details Date Type Department Care Team (Late st Contact Info) Description 12/13/2015 [place] [phone] Myranda Cooper MD [facility] [place] [address] Social History Tobacco Use Types Packs/Day Years [...] encounter Miscellaneous Notes * Telephone Encounter - Myranda Cooper MD - 12/13/2015 1:42 PM EDT Called for a long standing chest congestion and dyspnea from not yet clarified etiology, which is worse. Asking for a short course of abx and steroid, which usually leads to symptomatic relief. Will send Rx. ( azithro and 12 days prednisone taper). documented in this encounter Plan of Treatment Not on file documented as of this encounter Visit Diagnoses Not on filedocumented in this encounter Care Teams Hospital Superintendent Relationship Specialty Start Date End Date Lorene Aldrich MD [address] [place] [address] PCP - General Family Medicine 06/12/15 documented as of this encounter
--- OUTSIDE RECORDS SUMMARY | 2023-12-05 14:53 | XMS_ITS | Encounter Summary ---
[place] [address] Care Team Providers Care Clutch Inspector Name Role Phone Lorene Aldrich MD Primary Care Provider Encounter Details Date Type Department Care Team (Late st Contact Info) Description 09/17/2015 Orders Only Hematology [place] [address] Asuncion Faith MD [facility] [address] [place] [address] Recurrent deep vein thrombosis (DVT) Social History Tobacco Use Types Packs/Day Years [...] as of this encounter Visit Diagnoses Diagnosis Recurrent deep vein thrombosis (DVT) documented in this encounter Care Teams Clutch Inspector Relationship Specialty Start Date End Date Lorene Aldrich MD [address] [place] [address] PCP - General Family Medicine 06/12/15 documented as of this encounter
--- OUTSIDE RECORDS SUMMARY | 2023-12-05 14:53 | XMS_ITS | Encounter Summary ---
[place] [address] Care Team Providers Care Transit Vehicle Inspector Name Role Phone Lorene Aldrich MD Primary Care Provider [phone] Reason for Visit * Reason Onset Date Comments Medication Refill 12/22/2015 Encounter Details Date Type Department Care Team (Late st Contact Info) Description 12/22/2015 [place] [address] Gina Reynoso, RN Social History Tobacco Use [...] on filedocumented in this encounter Care Teams Transit Vehicle Inspector Relationship Specialty Start Date End Date Lorene Aldrich MD [address] [place] [address] PCP - General Family Medicine 06/12/15 documented as of this encounter
--- OUTSIDE RECORDS SUMMARY | 2023-12-05 14:53 | XMS_ITS | Encounter Summary ---
Author Organization [facility] [place] [address] Care Team Providers Care Hospital Orderly Name Role Phone Lorene Aldrich MD Primary Care Provider [phone] Encounter Details Date Type Department Care Team (Late st Contact Info) Description 02/18/2016 Telephone [place] [phone] Marshall Coughlin MD [facility] [place] [address] Social History Tobacco Use Types Packs/Day Years [...] Miscellaneous Notes * Telephone Encounter - Marshall Coughlin MD - 02/18/2016 9:44 PM EST Pulmonary I returned Jennifer's call earlier today - no reply. I did send some prednisone to her pharmacy as perher request earlier today. I think she should be seen back in clinic before we prescribe any further medication. She did not show for her last appointment and it is hard to get through to her by phone. Cc. Pulmonary Nurse Marshall Coughlin MD documented in this encounter Plan of Treatment Not on file documented as of this encounter Visit Diagnoses Not on filedocumented in this encounter Care Teams Hospital Orderly Relationship Specialty Start Date End Date Lorene Aldrich MD [address] [place] [address] PCP - General Family Medicine 06/12/15 documented as of this encounter
--- OUTSIDE RECORDS SUMMARY | 2023-12-05 14:53 | XMS_ITS | Encounter Summary ---
Author Organization [facility] [place] [address] Care Team Providers Care Auto Body Repair Estimator Name Role Phone Lorene Aldrich MD Primary Care Provider [phone] Reason for Visit * Reason Comments Follow-up Encounter Details Date Type Department Care Team (Late st Contact Info) Description 06/20/2018 10:30 AM EDT Office Visit [place] [address] Asuncion Faith MD [facility] [address] HEMATOLOGY [place] [address] Recurrent deep vein thrombosis (DVT) (Primary Dx) [...] Sign Reading Time Taken Comments Blood Pressure 109/64 06/20/2018 10:31 AM EDT Pulse 80 06/20/2018 10:31 AM EDT Temperature 36.5 ??C (97.7 ??F) 06/20/2018 10:31 AM E DT Respiratory Rate 20 06/20/2018 10:31 AM EDT Oxygen Saturation 96% 06/20/2018 10:31 AM EDT Inhaled Oxygen Concentration - - Weight 76.2 kg (168 lb) 06/20/2018 10:31 AM EDT Height 161 cm (5' 3.39) 06/20/2018 10:31 AM EDT Body Mass Index 29.4 06/20/2018 10:31 AM EDT documented in this encounter Progress Notes * Asuncion Faith MD - 06/20/2018 10:30 AM EDT [facility] Department of Medicine [place] [address] [facility] THROMBOSIS CONSULTATION DATE OF VISIT 06/20/2018 Patient Jennifer Jimenez 1975 REFERRING PHYSICIAN Lorene Aldrich MD PRIMARY CARE PHYSICIAN Lorene Aldrich MD REASON FOR CONSULTATION Need of anticoagulation HISTORY OF THE PRESENT ILLNESS Jennifer Jimenez is a 42 y.o. woman with history of recurrent DVTs, who is seen in consultation at the request of Lorene Aldrich MD for evaluation of recurrent DVTs and need of anticoagulation.Thehistory is obtained from the patient, and I have reviewed extensive medical records provided by thereferring physician and located in the electronic medical record to fill in gaps in the patient's recollection of events, treatments and outcomes. Ms. Jimenez developed her first DVT in the left [...] was started on enoxaparin, bridged to warfarin ,but she does not like being on warfarin due to fatigue, need of lab monitoring. I saw her in August 2015 and recommended her to stay on long-term anticoagulation because of her recurrent DVT. At that time I recommended to switch her anticoagulant from warfarin to apixaban. She wason it for a while and tolerated it well without side effect, but then at some point it got discontinued. She cannot remember when exactly and thought that this could be during the time she was doing rehab for opiate addiction. She is on suboxone now. She is moving to [place] the end of this month with her finance. She is looking forward to it. Her new PCP has referred her back to me to discuss whether she still needs to be on long-term anticoagulation. She continues to smoke cig 1 1/2 PPD. She has chronic shortness of breath & cough. She is followed by our blast furnace keeper. She has a pending CT chest without contrast to follow-up bronchiectasis. She is hoping that the warm weather will help her breathing. She was recently by vascular surgery team for her venous insufficiency. She was recommended a trialof compression stocking, but she has not had a chance to get them. THROMBOSIS RISK FACTORS Risk Factor Comment Obesity (BMI >30 kg/m2) V/A Diabetes V/A Current smoker V/A Y 1 PPD - 1 1/2 PPD Estrogen or estrogen/progestin V/A V/A Inflammatory disease V/A Recent surgery (<3 months) V Recent hospitalization (<3 mo) V Recent travel (<3 mo) V Period of immobility V Documented thrombophilia V Accident/Trauma V/A Cancer or treatment for cancer V/A Blood [...] exacerbation of chronic obstructive airways disease J44.1 OPERATIVE PROCEDURES Past Surgical History: Procedure Laterality Date ??? [...] performed by Venancio Esparza Jr., MD at [facility] ENDOSCOPY OBSTETRIC HISTORY 1 MEDICATIONS ??? aspirin 81 mg Tablet, Delayed Release (E.C.) ??? levothyroxine (SYNTHROID) 125 mcg Tablet ??? SUBOXONE 8-2 mg Film ??? PULMICORT FLEXHALER 180 mcg/actuation Aerosol Powdr Breath Activated ??? PROAIR HFA 90 mcg/actuation HFA Aerosol Inhaler ADVERSE DRUG REACTIONS Allergies as of 06/20/2018 - Review Complete 06/11/2018 Allergen Reaction Noted ??? Latex 06/11/2018 ??? Carrot Hives ??? Adhesive tape Other (See Comments) ??? Coumadin [warfarin] 06/08/2018 FAMILY HISTORY No family history of VTE Mother of DC at 40, smoker Not contact with father [...] glands No Other Fatigue PHYSICAL EXAMINATION BP 109/64 (Patient Position: Sitting) Pulse 80 Temp 36.5 ??C (97.7 ??F) (Temporal) Resp 20 Ht 161 cm (5' 3.39) Wt 76.2 kg (168 lb) SpO2 96% BMI 29.40 kg/m?? GENERAL: Well-appearing, articulate white female. HEENT: Oropharynx [...] Appropriate affect, no apparent distress. LABORATORY STUDIES None RADIOGRAPHIC STUDIES Ultrasound doppler 07/22/2015 Non occlusive [...] Progression from previous exam done on 12/13/06. Ultrasound 06/08/2018 Comparison: ?? RIGHT: No previous valvular incompetence study in our vascular lab database for comparison. ?? LEFT: No previous valvular incompetence study in our vascular lab database for comparison. Non-occlusive thrombus has somewhat improved (resolved) compared a previous DVT study 09/14/2015. There was mid and distal thigh non-occlusive thrombus which is not visualized in today's exam. CLINTON Jimenez is a 42 y.o. woman with history of recurrent left sided leg DVTs who is here for follow-up to discuss anticoagulation management. In brief, she has had several recurrent DVT in the past,both provoked and unprovoked. Her last DVT event was in 2016, following a minor trauma which was less likely to be the cause. She has at least two ongoing clinical risk factors for VTE including tobacco use and venous insufficiency. Her previous thrombophilia testing was negative. As discussed previously that her estimate risk for VTE recurrence is as high as 10-15%/year off anticoagulation and anticoagulation reduces the risk for VTE recurrence down to ~1%/year and the risk of life-threatening bleeding on anticoagulation is 1%/year or less. Although she was fine off anticoagulation for probably a year or so, I still strongly think that she should restart her anticoagulation for secondary VTE prophylaxis, carly with her ongoing clinical risk factors. She understands risk/benefit of anticoagulation and agrees to resume anticoagulation. Previously she used apixaban and tolerated it well. We discussed that she can either go back on apixaban or if she wishes, we can also try rivaroxaban as this comes in once daily dosing. She is interested to use rivaroxaban. We discussed about recent article Rivaroxaban or Aspirin for extended treatment of VTE) publishedin NEJ in May 2016 (Blas et al). The study evaluated efficacy & safety of rivaroxaban at 2 doses and aspirin for VTE prophylaxis after initial completion for acute VTE 6-12 months. It was concluded that the risk of a recurrent VTE event was significant lower with rivaroxaban at either 20 mgor prophylactic dose 10 mg than with aspirin, without a significant increase in bleeding rates. Therate of VTE was 1.5%, 1.2% and 4.4% in patients receiving 20 mg of rivaroxaban, 10 mg of rivaroxaban and aspirin, respectively. Rates of major bleeding were 0.5% in the group of 20 mg of rivaroxaban,0.4% in the group of receiving 10 mg of rivaroxaban and 0.3% in the aspirin group. Based on the data above, I recommend her to start rivaroxaban at low dose 10 mg PO daily for long-term secondary VTE prophylaxis. She reported to have normal kidney function that was done recently. Flaco request her lab from PCP. I sent a script for rivaroxaban 10 mg PO daily for 3 months supply. She will establish care with a new PCP in [place] and hopefully her new PCP will take over the future refill. Finally I encourage her to get compression stocking as recommended by vascular surgery team. She should wear them during waking hours, carly during long car ride to [place]. The compression stocking will reduce leg edema but also reduce risk for developing DVT. I reviewed other preventative strategies including maintain good weight/activity, tobacco cessation, wearing compression on daily basis during waking hours, use pharmacologic thromboprophylaxis during high risk period such as trauma, surgery, period of immobility, getting up and walking during longcar ride/long haul flight, staying up to date with cancer screening. PLAN/RECOMMENDATIONS 1. Recommend long-term anticoagulation for secondary VTE prophylaxis - start rivaroxaban 10 mg PO daily for long-term VTE prophylaxis (script sent to local pharmacy for3 month supply) 2. Request recent lab from PCP 3. Tobacco cessation 4. Compression stocking, 20-30 mmHg for venous insufficiency (right) and for post thrombotic syndrome (left) All of her questions were answered at her satisfaction. While I won't schedule to see her back for routine follow up, she knows that she can call our office if she has any questions or concerns. Asuncion Faith MD [facility] documented in this encounter Plan of Treatment Not on file documented as of this encounter Visit Diagnoses Diagnosis Recurrent deep vein thrombosis (DVT)- Primary documented in this encounter Care Teams Auto Body Repair Estimator Relationship Specialty Start Date End Date Lorene Aldrich MD [address] [place] [address] PCP - General Family Medicine 06/12/15 documented as of this encounter
--- OUTSIDE RECORDS SUMMARY | 2023-12-05 14:53 | XMS_ITS | Encounter Summary ---
Author Organization [facility] [place] [address] Care Team Providers Care Perl Software Engineer Name Role Phone Lorene Aldrich MD Primary Care Provider [phone] Encounter Details Date Type Department Care Team (Late st Contact Info) Description 02/05/2017 Telephone Hematology [place] [phone] [facility] DR HEMATOLOGY/[place] [address] Social History Tobacco Use Types Packs/Day Years [...] encounter Miscellaneous Notes * Telephone Encounter - Anjana Sykes - 02/05/2017 11:34 AM EST I received a call from Messi Mathews APRN regarding Jennifer. He is seeing Jennifer in the ER in [facility]. Jennifer reports a history of 3 DVT's and one PE centered around first control and 2 accidents. She was seen here less than a year ago. She does not take coumadin as it makes her hair full out. She was on eliquis 5 mg in the past and was supposed to be on this indefinitely but stopped this. She has an IVC filter placed 10 years ago. She was advised not to take this filter out. She has pain in her left medial distal thigh with swelling and tenderness. It has reduced some in size and tenderness. It is a dime sized area that is tender and swollen. No varicosities. No respiratory issues. No cardiac issues. No US available today at the hospital. She has no transportation at this time and multiple barriers to care. She will be able to get a ride to have an outpatient US tomorrow. Messi will send it into the PACS system along with labs (cbc, cmp, coags) so they are visible to [facility]. I will send a note to the Heme clinic triage to schedule a follow up appointment in the next week. He will discharge her with Eliquis 10 mg bid for 7 days then 5 mg bid thereafter. Discussed with Dr. Manley documented in this encounter Plan of Treatment Not on file documented as of this encounter Visit Diagnoses Not on filedocumented in this encounter Care Teams Perl Software Engineer Relationship Specialty Start Date End Date Lorene Aldrich MD [address] [place] [address] PCP - General Family Medicine 06/12/15 documented as of this encounter
--- OUTSIDE RECORDS SUMMARY | 2023-12-05 14:53 | XMS_ITS | Encounter Summary ---
[place] [address] Care Team Providers Care Boat Engines Installer Name Role Phone Lorene Aldrich MD Primary Care Provider [phone] Reason for Referral * Diagnostic Test (Routine) - Closed Specialty Diagnoses / Procedures Referred By Contac t Referred To Contact Radiology Diagnoses Bronchiectasis with acute exacerbation Procedures CT Chest wo Contrast (Generic) Tommie Reynolds MD [facility] [place] [address] [facility] [place] [address] Referral ID Status Reason Start Date Expiration Date V isits Requested Visits Authorized [id number] Closed Specialty Service Requested 06/14/2018 09/12/2018 1 1 Reason for Visit * Reason Comments Referral * Consultation (Routine) - Closed Specialty Diagnoses / Procedures Referred By Contac t Referred To Contact Pulmonology Diagnoses Asthma COPD (chronic obstructive pulmonary disease) Asthma, COPD Lorene Aldrich MD [address] [place] [address] [facility] [address] [place] [address] Referral ID Status Reason Start Date Expiration Date V isits Requested Visits Authorized [id number] Closed Consult, Test & Treat 05/14/2018 05/14/2019 1 1 Encounter Details Date Type Department Care Team (Latest Contact Info) Description 06/11/2018 9:00 AM EDT [place] [address] Tommie Reynolds MD [facility] DR PULMONARY MEDICINE [place] [id number] Bronchiectasis with acute exacerbation Social History Tobacco Use Types Packs/Day [...] Sign Reading Time Taken Comments Blood Pressure 122/82 06/11/2018 9:03 AM EDT Pulse 83 06/11/2018 9:03 AM EDT Temperature - - Respiratory Rate 20 06/11/2018 9:03 AM EDT Oxygen Saturation 96% 06/11/2018 9:03 AM EDT Inhaled Oxygen Concentration - - Weight 76.2 kg (168 lb) 06/11/2018 9:03 AM EDT Height 160 cm (5' 3) 06/11/2018 9:03 AM EDT Body Mass Index 29.76 06/11/2018 9:03 AM EDT documented in this encounter Progress Notes * Tommie Reynolds MD - 06/11/2018 9:00 AM EDT Images from the original note were not included. SECTION OF PULMONARY AND CRITICAL CARE?? Pulmonary and [place] [address] Outpatient New Consultation Consulted by Lorene Aldrich MD to evaluate this patient for asthma. I have personally interviewed and examined the patient on 06/11/2018, and reviewed the patient's radiographic studies and laboratory data. HPI: In brief, Jennifer Jimenez is a 42 y.o. female with longstanding asthma, not well controlled, particularly in past 3 years. Has 3 cats to which feels she is sensitive. Smokes about 1 ppd x 27 years ( smokes as well). They have had difficulty coming to terms with trying to quit simultaneously. She is currently on Pulmicort and albuterol. She denies GERD sx. she states that she has been on systemic steroids about 3x per year, and she has recently started snoring. She admits that she has put on weight as a result of the steroids. She had been on Advair but had a sense that this was not controlling her and she was changed to Pulmicort, which does not seem any more effective. She denies constitutional symptoms, joint pains, or skin rash. She has apparently had multiple DVT/PE in thepast, some of which sound as though they were precipitated by specific definable events, but some of which were not. She has an IVC filter in place, and is not currently anticoagulated. She complainsof lower extremity edema bilaterally which often goes all the way up to her thighs. PAST MEDICAL HISTORY: Patient Active Problem List Diagnosis Code ??? Grave's disease-treated ??? 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 Recurrent deep vein thrombosis (DVT) I82.409 ??? S/P IVC filter Z95.828 ??? Tobacco use Z72.0 ??? Acute exacerbation of chronic obstructive airways disease J44.1 Past Surgical History: Procedure Laterality Date ??? [...] performed by Venancio Esparza Jr., MD at [facility] ENDOSCOPY MEDICATIONS: Current Outpatient Medications Medication Sig Dispense Refill ??? aspirin 81 mg Tablet, Delayed Release (E.C.) Take 81 mg by mouth daily. ??? levothyroxine (SYNTHROID) 125 mcg Tablet take 1 tablet by mouth once daily 0 ??? SUBOXONE 8-2 mg Film 12 mg. 0 ??? PROAIR HFA 90 mcg/actuation HFA Aerosol Inhaler 0 ??? PULMICORT FLEXHALER 180 mcg/actuation Aerosol Powdr Breath Activated INHALE 1 PUFFS BY MOUTH TWICE DAILY. 0 No current facility-administered medications for this visit. ALLERGIES: Latex; Carrot; Adhesive tape; and Coumadin [warfarin] FAMILY HISTORY: Cardiac problems Cancer SOCIAL HISTORY: Social History Socioeconomic History ??? Marital status: [...] file Gets together: Not on file Attends [employer] service: Not on file Active member of [...] Social History Narrative ??? 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 Review of Systems: GENERAL HEENT CV PULM All negative All negative All negative All negative Weight loss Headache Angina Non-productive cough x Weight gain Vision change x Palpitations x Productive cough Fevers x Sinus congestion Presyncope x Wheezing Chills x Rhinorrhea Syncope Hemoptysis Diaphoresis Epistaxis LE edema Pleuritic pain x Poor sleep Post-nasal drip Claudication Orthopnea Fatigue Throat clearing Paroxysmal dyspnea Anorexia Dry eyes/mouth Trepopnea Hoarseness MSK RENAL ENDO GI/NUTRITION x All negative x All negative x All negative x All negative Arthralgias Polyuria Heat intolerance GERD Myalgias Oliguria Cold intolerance Dysphagia Deformity Hematuria Polydipsia Odynophagia Stiffness Flank pain Polyphagia Abdominal discomfort Wasting Dysuria Cushingoid Constipation Diarrhea Steatorrhea LYMPH SKIN NEURO PSYCH x All negative x All negative x All negative x All negative Swollen nodes Rash Seizures Depressed affect Tender nodes Ulcers Tremors Occupational stress Diffuse nodes Purpura Spasticity Troubled relationship(s) Local nodes Pigmented lesion Focal weakness Insomnia Telangiectasias Diplopia Anxiety Angiomata Paresthesias Absenteeism Tanned skin PHYSICAL EXAM Last value Range last 24 hrs Temperature Temp: -- Heart Rate Heart Rate: 83 Heart Rate: [83] Blood Pressure BP: 122/82 BP: (122)/(82) Respiratory Rate Resp: 20 Resp: [20] SpO2 SpO2: 96 % SpO2: [96 %] WDWN 42 y.o. female in NAD. HEENT-NC/AT; unremarkable Neck-supple without masses or, nodes Chest-diminished breath sounds bilaterally with faint expiratory wheezing in the upper lung zones Heart-Normal rate and rhythm, without murmers, gallops, or rubs. Abdomen-benign without organomegaly or tenderness Extremities-no cyanosis, clubbing, or edema Skin-no rashes or lesions Musculoskeletal-no joint swelling, tenderness, redness or deformities Neurologic-Nonfocal, without weakness or sensory deficits Lymphatics-unremarkable I have personally reviewed the PFTs, and my interpretation is as follows: FVC of 2.96L (83 % pred),FEV1 of 1.89L (65% pred), FEV1/FVC 64%. Diffusing capacity of 100% pred). FENO of 9 ppb. These studies indicate moderate obstructive lung disease, without apparent allergic airway inflammation. IMPRESSION: In summary, this is a 42 y.o. female with moderate obstructive lung disease with a impressive smoking history (since she was 15), and also lives with someone who smokes. I discussed with her at considerable length the issues related to smoking and smoking cessation at present, particularly since her diffusing capacity would indicate that she would have no emphysematous damage to deal with in the future if she were to successfully quit (difficult as that may be). I gave her recommendations with respect to keeping the cat allergies at bay (wiping down the saliva from its coat on a weekly basis). I suggested that she might be better off back on the Advair, using a spacer, and if need be she can be placed on a nebulizer with budesonide possibly for a cost that is similar. At the end of the day of course most of this is window dressing if she does not quit smoking, and a gave david many pointers as I could based on other patients experiences, and will see her back in the next 3-4 months to see how she is doing. She is scheduled to see our thrombosis specialist and I expect that she will either be anticoagulated or have the filter removed shortly. Greater than 50 min of this60 minute visit was spent in face to face discussion with the patient regarding the nature and complexity of the problems described above, the details of our diagnostic andtherapeutic plans. documented in this encounter Plan of Treatment Not on file documented as of this encounter Results * CT Chest wo [...] this report, please contact the number below. Tommie Card MD IMG CT ORDERABLES documented in this encounter Visit Diagnoses Diagnosis Bronchiectasis with acute exacerbation Bronchiectasis with acute exacerbation documented in this encounter Care Teams Boat Engines Installer Relationship Specialty Start Date End Date Lorene Aldrich MD [address] [place] [address] PCP - General Family Medicine 06/12/15 documented as of this encounter
--- OUTSIDE RECORDS SUMMARY | 2023-12-05 14:53 | XMS_ITS | Encounter Summary ---
Author Organization [facility] [place] [address] Care Team Providers Care Teacher Assistant Name Role Phone Lorene Aldrich MD Primary Care Provider Encounter Details Date Type Department Care Team (Late st Contact Info) Description 09/11/2019 Orders Only [place] [address] Leann Zaman APRN [facility] [place] [address] Varicose veins of left lower extremity, unspecified whether complicated Social History Tobacco Use [...] as of this encounter Visit Diagnoses Diagnosis Varicose veins of left lower extremity, unspecified whether complicated documented in this encounter Care Teams Teacher Assistant Relationship Specialty Start Date End Date Lorene Aldrich MD [address] [place] [address] PCP - General Family Medicine 06/12/15 documented as of this encounter
--- OUTSIDE RECORDS SUMMARY | 2023-12-05 14:53 | XMS_ITS | Encounter Summary ---
[place] [address] Care Team Providers Care Dry Kiln Feeder Name Role Phone Lorene Aldrich MD Primary Care Provider [phone] Reason for Visit * Reason Onset Date Comments Medication Refill 07/09/2015 Encounter Details Date Type Department Care Team (Late st Contact Info) Description 07/09/2015 [place] [phone] Gina Reynoso, glass cylinder flanger Refill Social History Tobacco Use Types Packs/Day Years [...] Telephone Encounter - Sarina Reynoso, RN - 07/09/2015 11:02 AM EDT Pt still feels bad Would like a Refill on Augmentin. documented in this encounter Plan of Treatment Not on file documented as of this encounter Visit Diagnoses Not on filedocumented in this encounter Care Teams Dry Kiln Feeder Relationship Specialty Start Date End Date Lorene Aldrich MD [address] [place] [address] PCP - General Family Medicine 06/12/15 documented as of this encounter
--- OUTSIDE RECORDS SUMMARY | 2023-12-05 14:53 | XMS_ITS | Encounter Summary ---
[place] [address] Care Team Providers Care Collections Representative Name Role Phone Lorene Aldrich MD Primary Care Provider [phone] Reason for Visit * Reason Onset Date Comments Bumped Appointment 06/07/2018 Encounter Details Date Type Department Care Team (Late st Contact Info) Description 06/07/2018 Telephone [place] [address] Carmen Dowling Bumped Appointment Social History Tobacco Use Types Packs/Day Years [...] encounter Miscellaneous Notes * Telephone Encounter - Carmen Dowling - 06/07/2018 1:54 PM EDT Called placed to patient to inform her of bumped appointment on 06/08/18 in vascular lab and with Dr. Rodriguez. Patient is still scheduled on 06/08/18 has been moved to the afternoon. Message left for patient. documented in this encounter Plan of Treatment Not on file documented as of this encounter Visit Diagnoses Not on filedocumented in this encounter Care Teams Collections Representative Relationship Specialty Start Date End Date Lorene Aldrich MD [address] [place] [address] PCP - General Family Medicine 06/12/15 documented as of this encounter
--- OUTSIDE RECORDS SUMMARY | 2023-12-05 14:53 | XMS_ITS | Encounter Summary ---
[place] [address] Care Team Providers Care Biological Sciences Instructor Name Role Phone Lorene Aldrich MD Primary Care Provider [phone] Reason for Referral * Consultation (Routine) - Closed Specialty Diagnoses / Procedures Referred By Chris t Referred To Contact Thoracic Surgery Diagnoses Chronic obstructive pulmonary disease, unspecified COPD type Reggie Urbina MD [facility] [place] [address] [facility] [address] [place] [id number] Referral ID Status Reason Start Date Expiration Date V isits Requested Visits Authorized [id number] Closed Consult, Test & Treat 10/19/2015 10/18/2016 1 1 Reason for Visit * Reason Comments Follow-up Dyspnea On Exertion Encounter Details Date Type Department Care Team (Late st Contact Info) Description 10/19/2015 1:00 PM EDT Office [place] [address] Reggie Urbina MD [facility] [place] [address] Chronic obstructive pulmonary disease, unspecified COPD type; Moderate persistent asthma with exacerbation; VANEGAS (dyspnea on exertion); Acute bronchitis due to Haemophilus influenzae Social [...] Sign Reading Time Taken Comments Blood Pressure 133/83 10/19/2015 1:14 PM EDT Pulse 92 10/19/2015 1:14 PM EDT Temperature - - Respiratory Rate 22 10/19/2015 1:14 PM EDT Oxygen Saturation 96% 10/19/2015 1:14 PM EDT Inhaled Oxygen Concentration - - Weight 75.8 kg (167 lb) 10/19/2015 1:14 PM EDT Height 160 cm (5' 3) 10/19/2015 1:14 PM EDT Body Mass Index 29.58 10/19/2015 1:14 PM EDT documented in this encounter Progress Notes * Reggie Urbina MD - 10/19/2015 1:00 PM EDT This is an ongoing smoker with asthma who over the weekend called the on-call doctor for increasingshortness of breath. The patient is followed by Dr. Coughlin for steroid-dependent asthma. There was a question of hypersensitivity pneumonitis, [place]-Paul, ABPA. Bronchoscopy was unrevealing. She has been transitioned over to inhaled sterile however there were problems with getting his prescription filled which no one quite understands. For the last 10 days she has been developing increasing cough with first clear sputum that has now developed into green sputum. Her shortness of breath has increased and she has coughing fits. She has felt hot but denies fevers or chills or sweats. She continues to smoke about half pack a day. She says she is trying to quit. Review of systems: Denies headaches, changes in vision or hearing, nasal congestion, postnasal drip, voice change. She has cough and shortness of breath and chest congestion. Denies palpitations, nausea or vomiting, change in bowel or bladder habits, rash or swelling or weakness. She denies changesin sleep. She denies fevers or chills or sweats or change in weight or energy or appetite. All other systems reviewed and found negative. Blood pressure 133/83, pulse 92, resp. rate 22, height 160 cm (5' 3), weight 75.8 kg (167 lb), SpO2 96 %. Pleasant woman who coughs throughout the interview. She smells of smoke. Normocephalic/atraumatic Cranial nerves intact Nares clear Oropharynx is clear No cervical or submandibular supraclavicular lymphadenopathy Good air movement throughout with loud rhonchi in all lung layne posteriorly. Cough with deep inspiration Regular rate and rhythm Abdomen is mildly obese otherwise benign No rash No edema Gait is normal Assessment/plan: Moderate to severe persistent asthma but in the context of smoking. I emphasized the absolute need to quit smoking completely immediately. I offered smoking cessation which the patient is agreeable to. I will place an order for this. It sounds as if she has an infection. I would like to treat her both with sterile and antibiotic-coated today. Have given her Medrol pack and azithromycin and asked her to call me in 4 days if she isnot better. documented in this encounter Plan of Treatment Scheduled Referrals Name Type Priority Associated Diagnoses Orde r Schedule Referral to Smoking Cessation Program Outpatient Referral Routine Chronic obstructive pulmonary disease, unspecified COPD type Ordered: 10/19/2015 documented as of this encounter Visit Diagnoses Diagnosis Chronic obstructive pulmonary disease, unspecified COPD type Moderate persistent asthma with exacerbation Unspecified asthma, with exacerbation VANEGAS (dyspnea on exertion) Other dyspnea and respiratory abnormality Acute bronchitis due to Haemophilus influenzae Acute bronchitis documented in this encounter Care Teams Biological Sciences Instructor Relationship Specialty Start Date End Date Lorene Aldrich MD [address] [place] [address] PCP - General Family Medicine 06/12/15 documented as of this encounter
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
--- OUTSIDE RECORDS SUMMARY | 2023-12-05 14:53 | XMS_ITS | Encounter Summary ---
Author Organization [facility] [place] [address] Care Team Providers Care Business Services Director Name Role Phone Lorene Aldrich MD Primary Care Provider [phone] Encounter Details Date Type Department Care Team (Late st Contact Info) Description 10/18/2015 Telephone [place] [phone] [facility] [place] [address] Social History Tobacco Use Types Packs/Day Years [...] encounter Miscellaneous Notes * Telephone Encounter - Aaron Maddox MD - 10/18/2015 2:33 AM EDT Pulmonary Attending Telephone Note 2:33 AM Reason for call: chest pain, my breathing is getting crappy again Ms. Jimenez is a 40 year old smoker (~0.5-ppd) who is followed by Drs. Coughlin and Isaias. She apparently has a chronic productive (or at least rattling) cough for which she underwent bronchoscopy with BAL in June 2015. The culture grew Haemophilus influenzae, and she was treated with appropriate antibiotics for 2 weeks. The working diagnosis is asthma, but she had some patchy ground- glass opacities and bronchial wall thickening in lingula on chest CT which prompted the bronchoscopy and other serologies (all unrevealing). Her serum IgE is not elevated, but that may have been drawn while she was on prednisone. Finally, she has VTE now treated with Eliquis (evaluated by hematology). She called [facility] because she was having some upper back pain just to left of midline that was worsened by coughing or moving her arm just right. Cough frequency is again increased but she cannot readily expectorate mucus. Some exertional dyspnea. Pertinent negatives: hemoptysis, fevers, chills. Part of the reason for calling was because she was never able to get Pulmicort for nebulization (apparently plan to push inhaled steroid dose higher with Advair in background to hopefully avoid prednisone). She said that the prescription , and insurance would not cover it. She has albuterol HFA and nebulizer solution. She was speaking full sentences on the phone, and I could hear no wheezing. Impression and Plan: Probable asthma exacerbation in smoker. Airway colonization. Probable musculoskeletal strain in upper back. I do not think that she needs to be seen at local ED [facility], but she needs to be seen in clinic to evaluate this set of problems and to troubleshoot her medication issues. She could come to [facility] on Monday to our clinic for urgent visit. I told her that I would forward her my note to the on-call team for Monday to finalize plans. Advised her to seek care at her local ED if symptoms are not responding to current plan. AARON MADDOX MD 10/18/2015 documented in this encounter Plan of Treatment Not on file documented as of this encounter Visit Diagnoses Not on filedocumented in this encounter Care Teams Business Services Director Relationship Specialty Start Date End Date Lorene Aldrich MD [address] [place] [address] PCP - General Family Medicine 06/12/15 documented as of this encounter
--- OUTSIDE RECORDS SUMMARY | 2023-12-05 14:53 | XMS_ITS | Encounter Summary ---
[place] [address] Care Team Providers Care Property Underwriter Name Role Phone Lorene Aldrich MD Primary Care Provider [phone] Encounter Details Date Type Department Care Team (Late st Contact Info) Description 10/19/2015 Refill [place] [phone] Kim Mejía COPD, severe Social History Tobacco Use Types Packs/Day Years [...] encounter Miscellaneous Notes * Telephone Encounter - Kim Mejía - 10/19/2015 2:46 PM EDT Call made to Jennifer to schedule appointment for Mariama Ramirez. Message left to return call documented in this encounter Plan of Treatment Not on file documented as of this encounter Visit Diagnoses Diagnosis COPD, severe Chronic airway obstruction, not elsewhere classified documented in this encounter Care Teams Property Underwriter Relationship Specialty Start Date End Date Lorene Aldrich MD [address] [place] [address] PCP - General Family Medicine 06/12/15 documented as of this encounter
--- OUTSIDE RECORDS SUMMARY | 2023-12-05 14:53 | XMS_ITS | Encounter Summary ---
[place] [address] Care Team Providers Care Workplace Trainer And Assessor Name Role Phone Lorene Aldrich MD Primary Care Provider [phone] Reason for Visit * Reason Onset Date Comments Prior Authorization 11/12/2015 Encounter Details Date Type Department Care Team (Late st Contact Info) Description 11/19/2015 [place] [phone] Gina Reynoso dependency case manager Social History Tobacco Use Types Packs/Day Years [...] Telephone Encounter - Sarina Reynoso RN - 11/19/2015 10:40 AM EDT Medication Prior Authorization Medication name/dose/directions: Azithromycin tab 250Mg. Rationale for request: infection Health plan: [place] Faxed to health plan on: 11/10/2014 Health plan decision: Approved Quantity approved: 6 tabs Authorization number: [id number] Start date End date: 11/16/2015 Patient notified? yes Pharmacy notified? yes documented in this encounter Plan of Treatment Not on file documented as of this encounter Visit Diagnoses Not on filedocumented in this encounter Care Teams Workplace Trainer And Assessor Relationship Specialty Start Date End Date Lorene Aldrich MD [address] [place] [address] PCP - General Family Medicine 06/12/15 documented as of this encounter
--- OUTSIDE RECORDS SUMMARY | 2023-12-05 14:53 | XMS_ITS | Encounter Summary ---
Author Organization [facility] [place] [address] Care Team Providers Care Detention Deputy Name Role Phone Lorene Aldrich MD Primary Care Provider [phone] Encounter Details Date Type Department Care Team (Late st Contact Info) Description 12/22/2015 Orders [place] [address] Marshall Coughlin MD [facility] [place] [address] Moderate persistent asthma without complication Social History Tobacco Use Types Packs/Day Years [...] encounter Visit Diagnoses Diagnosis Moderate persistent asthma without complication Unspecified asthma documented in this encounter Care Teams Detention Deputy Relationship Specialty Start Date End Date Lorene Aldrich MD [address] [place] [address] PCP - General Family Medicine 06/12/15 documented as of this encounter
--- OUTSIDE RECORDS SUMMARY | 2023-12-05 14:53 | XMS_ITS | Encounter Summary ---
[facility] Address [facility] [place] [address] Care Team Providers Care Bill Recapitulation Clerk Name Role Phone Lorene Aldrich MD Primary Care Provider [phone] Reason for Visit * Auth/Cert Specialty Diagnoses / Procedures Referred By Contac t Referred To Contact Diagnoses VANEGAS Procedures PRO BRONCHOSCOPY, DIAGNOSTIC BRONCHOSCOPY Referral ID Status Reason Start Date Expiration Date Visits Re quested Visits Authorized [id number] 1 1 Encounter Details Date Type Department Care Team (Latest Contact Info) Description 06/25/2015 7:00 AM EDT - 06/25/2015 8:25 AM EDT Hospital Encounter XRay at [address] [place] [address] Venancio Esparza Jr., MD [facility] [place] [address] VANEGAS (dyspnea on exertion) Discharge Disposition: Home Social History Tobacco Use [...] Name Priority Date/Time Associated Diagnosis Comments XR CHEST PA AND LATERAL Routine 06/25/2015 8:05 AM EDT VANEGAS (dyspnea on exertion) documented in this encounter Results * XR Chest Routine PA & Lateral (06/25/2015 8:05 AM EDT) Anatomical Region Laterality Modality Chest N/A Digital Radiogra phy Impressions 06/25/2015 8:18 AM EDT IMPRESSION: No evidence of pulmonary disease but see limitation above. Narrative 06/25/2015 8:18 AM EDT EXAMINATION: XR CHEST ROUTINE PA AND LATERAL CLINICAL HISTORY: Follow up possible ABPA TECHNIQUE: Standing PA and lateral chest COMPARISON: Outside PA and lateral chest 03/15/[address] 06/05/2015. FINDINGS: The lungs are clear. However, many of the tree-in-bud opacities seen on the prior chest CT are too small to be reliably seen on a chest radiograph. The cardiomediastinal silhouette and key appear normal. No pleural effusion or significant bone abnormality is seen. Incidentally noted is an IVC filter. Procedure Note Luis Felipe Mcdonough MD - 06/25/2015 EXAMINATION: XR CHEST ROUTINE PA AND LATERAL CLINICAL HISTORY: Follow up possible ABPA TECHNIQUE: Standing PA and lateral chest COMPARISON: Outside PA and lateral chest 03/15/[address]/05/2015. FINDINGS: The lungs are clear. However, many of the tree-in-bud opacities seen onthe prior chest CT are too small to be reliably seen on a chest radiograph.The cardiomediastinal silhouette and key appear normal. No pleural effusionor significant bone abnormality is seen. Incidentally noted is an IVCfilter. IMPRESSION IMPRESSION: No evidence of pulmonary disease but see limitation above. Venancio Esparza Jr., MD IMG DX ORDERABLE S documented in this encounter Visit Diagnoses Diagnosis VANEGAS (dyspnea on exertion) Other dyspnea and respiratory abnormality documented in this encounter Care Teams Bill Recapitulation Clerk Relationship Specialty Start Date End Date Lorene Aldrich MD [address] [place] [address] PCP - General Family Medicine 06/12/15 documented as of this encounter
--- OUTSIDE RECORDS SUMMARY | 2023-12-05 14:53 | XMS_ITS | Encounter Summary ---
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 yes Pharmacy notified? yes documented in this encounter Plan of Treatment Not on file documented as of this encounter Visit Diagnoses Not on filedocumented in this encounter Care Teams Hog Grader Relationship Specialty Start Date End Date Lorene Aldrich MD [address] [place] [address] PCP - General Family Medicine 06/12/15 documented as of this encounter
--- OUTSIDE RECORDS SUMMARY | 2023-12-05 14:53 | XMS_ITS | Encounter Summary ---
[place] [address] Care Team Providers Care High Heel Builder Name Role Phone Lorene Aldrich MD Primary Care Provider Encounter Details Date Type Department Care Team (Latest Contact Info) Description 06/11/2018 7:56 AM EDT - 06/11/2018 11:59 PM EDT Hospital Encounter [place] [address] Asthma, unspecified asthma severity, unspecified whether complicated, unspecified whether persistent; Chronic obstructive pulmonary disease, unspecified COPD type Discharge Disposition: Home Social History Tobacco Use [...] 8-2 mg Film 12 mg. 0 06/02/2015 levothyroxine (SYNTHROID) 125 mcg Tablet 137 mcg. 0 09/11/2015 09/17/2019 documented as of this encounter Procedure Notes * Zaria Sinclair MD - 06/11/2018 3:02 PM EDTAssociated Order(s): PULMONARY FUNCTION TEST Pulmonary Function Test Interpretation Spirometry The FVC is normal. FEV1 is reduced. The FEV1/FVC ratio is reduced. Diffusion Capacity Unadjusted single-breath diffusion capacity for CO is normal. Impression: Mild (FEV1 > 70%) obstructive ventilatory defect No bronchodilator response is noted after administration of inhaled bronchodilator No diffusion impairment present Fraction of Exhaled Nitric Oxide (FeNO) Measurement Nitric oxide (NO) is recognized as a biomarker for eosinophilic airway inflammation, as is generally the case in asthma. Measuring NO in exhaled breath can help determine whether non-specific respiratory symptoms of wheezing, dyspnea, and cough are due to asthma. However, there are several important limitations of using this test to diagnose and treat asthma. Guidelines from a 2011 [place] [employer] (ATS) executive summary on the [...] FeNO of >20% occurring 2-6 weeks after anti- inflammatory treatmentinitiation is consistent with therapeutic efficacy. The FeNO in ppb for this patient at today's visit was 9 Zaria Sinclair MD documented in this encounter Plan of Treatment Not on file documented as of this encounter Procedures Procedure Name Priority Date/Time Associated Diagnosis Comments COMMON PULMONARY FUNCTION TEST Routine 06/11/2018 3:02 PM EDT Asthma, unspecified asthma severity, unspecified whether complicated, unspecified whether persistent Chronic obstructive pulmonary disease, unspecified COPD type documented in this encounter Results * Pulmonary Function Testing [...] treat asthma. ?? Guidelines from a 2011 [place] (ATS) executive summary on the [...] type documented in this encounter Care Teams High Heel Builder Relationship Specialty Start Date End Date Lorene Aldrich MD [address] [place] [address] PCP - General Family Medicine 06/12/15 documented as of this encounter
--- OUTSIDE RECORDS SUMMARY | 2023-12-05 14:54 | XMS_ITS | Encounter Summary ---
[place] [address] Care Team Providers Care Nutrition Club Ambassador Name Role Phone Nakul Ye MD Primary Care Provider [phone] Reason for Visit * Reason Onset Date Comments Medication Refill 10/19/2010 Encounter Details Date Type Department Care Team (Late st Contact Info) Description 10/19/2010 [place] [address] Tommie Garcia PA [facility] [place] [address] Pain (Primary Dx) Social History Tobacco Use Types Packs/Day Years Used Date Smoking Tobacco: Never Assessed Sex and Gender Information Value Date Recorded Sex Assigned at Female 11/19/2023 10:16 AM EDT Gender Identity Female 11/19/2023 10:16 AM EDT Sexual Orientation Not on file documented as of this encounter Plan of Treatment Not on file documented as of this encounter Visit Diagnoses Diagnosis Pain- Primary Generalized pain documented in this encounter Care Teams Nutrition Club Ambassador Relationship Specialty Start Date End Date Nakul Ye MD [address] [place] [address] PCP - General 02/09/10 04/01/15 documented as of this encounter
--- OUTSIDE RECORDS SUMMARY | 2023-12-05 14:54 | XMS_ITS | Encounter Summary ---
Author Organization [facility] Address [address] [place] [address] Care Team Providers Care Advertising Rep Name Role Phone Judie Potter MD Primary Care Provider [phone] Reason for Visit * Reason Onset Date Comments Paperwork request 11/07/2019 Encounter Details Date Type Department Care Team (Late st Contact Info) Description 11/07/2019 Telephone [facility] Endocrinology - [address] [address] Lobo Bonner MD [address] [place] [address] Paperwork request Social History Tobacco Use Types Packs/Day Years Used Date Smoking Tobacco: Every Day Cigarettes 1 20 Smokeless Tobacco: Never Alcohol Use Standard Drinks/Week Comments Yes 0 (1 standard drink = 0.6 oz pur e alcohol) Interpersonal Safety Answer Date Record ed Physically Hurt Never 10/20/2019 Verbally Threaten Not on file 10/20/2019 Sex and Gender Information Value Date Recorded Sex Assigned at Not on file Gender Identity Female 09/13/2019 11:59 EDT Sexual Orientation Not on file COVID-19 Exposure Response Date Recorded In the last month, have you been in contact with someone who was confirmed or suspected to have Coronavirus / COVID-19? No / Unsure 11/04/2019 12:13 EDT documented as of this encounter Miscellaneous Notes * Telephone Encounter - Samir Guadalupe - 11/12/2019 1414 EDT [facility] calling Submit family testing results Attention Jane RoyGabrielle With patient name on family test results E-mail - [email or web address] Tele - [phone] Faxed positive family member results to [facility] attention Jane Osborne For more precise genetic testing for patient. * Telephone Encounter - Samir Guadalupe - 11/11/2019 1304 EDT Faxed paperwork to [phone]. * Telephone Encounter - Adina Hope RN - 11/11/2019 1146 EDT [facility] calling 11/11/19 11:46 Spoke to : Karol Christopher because they had faxed over a form that needed to be filled/signed by Dr. Herring in order for [facility] to run the test. [place] [phone]. This aligner typewriter was able to find fax form in the SCAN. This aligner typewriter printed the form and will hand it to Dr. Herring For has to be faxed back to : [phone] ADINA SWANN RN 11/11/2019 11:48 * Telephone Encounter - Pooja Salazar - 11/07/2019 1135 EDT Received paperwork, uploaded and routed to Dr. Herring * Telephone Encounter - Anne Narayanan - 11/07/2019 1032 EDT Per caller, wanted to give head's up that she's faxing to [phone] a form she needs signed for a molecular genetics from [facility] documented in this encounter Plan of Treatment Not on file documented as of this encounter Visit Diagnoses Not on filedocumented in this encounter Care Teams Advertising Rep Relationship Specialty Start Date End Date Judie Potter MD [address] [place] [address] PCP - General 09/13/19 documented as of this encounter
--- OUTSIDE RECORDS SUMMARY | 2023-12-05 14:54 | XMS_ITS | Referral Summary ---
Author Organization [facility] Address [address] [place] [address] Care Team Providers Care Termite Control Technician Name Role Phone Judie Potter MD Primary Care Provider [phone] Allergies Active Allergy Reactions Criticality Noted Date Comments Latex, Natural Rubber Hives 02/09/2011 Medications Medication Sig Dispensed Refills Start Date End Date Status IBUPROFEN ORAL Take 200 mg by mouth. Prn Active ACETAMINOPHEN (TYLENOL EXTRA STRENGTH ORAL) Take by mouth as needed. Active fluticasone propionate (FLONASE) 50 mcg/actuation nasal spray Instill 50 mcg into both nostrils daily. 10/28/2019 Active cetirizine (ZYRTEC) 10 mg tablet Take 10 mg by mouth daily. 10/28/2019 Active montelukast (SINGULAIR) 10 mg tablet Take 10 mg by mouth daily. 10/28/2019 Active levothyroxine (SYNTHROID) 137 mcg tablet Take 137 mcg by mouth daily. 09/10/2019 Active ADVAIR HFA 230-21 mcg/actuation inhaler INL 2 PFS PO BID 09/04/2019 Active albuterol 90 mcg/actuation inhaler INHALE 1 TO 2 PUFFS PO EVERY 4-6 HOUTS PRN FOR WHEEZING 08/03/2019 Active Social History Tobacco Use Types Packs/Day Years Used Date Smoking Tobacco: Every Day Cigarettes 1 20 Smokeless Tobacco: Never Tobacco Cessation:Ready to Q uit: No; Counseling Given: Yes Alcohol Use Standard Drinks/Week Comments Yes 0 (1 standard drink = 0.6 oz pur e alcohol) Interpersonal Safety Answer Date Record ed Physically Hurt Never 10/20/2019 Verbally Threaten Not on file 10/20/2019 Sex and Gender Information Value Date Recorded Sex Assigned at Not on file Gender Identity Female 09/13/2019 11:59 EDT Sexual Orientation Not on file Last Filed Vital Signs Vital Sign Reading Time Taken Comments Blood Pressure 135/75 11/04/2019 1044 EDT Pulse 77 11/04/2019 1044 EDT Temperature - - Respiratory Rate - - Oxygen Saturation - - Inhaled Oxygen Concentration - - Weight 90.4 kg (199 lb 6.4 oz) 11/04/2019 1044 E DT Height 160 cm (5' 2.99) 11/04/2019 1044 EDT Body Mass Index 35.33 11/04/2019 1044 EDT Plan of Treatment Not on file Procedures Procedure Name Priority Date/Time Associated Diagnosis Comments HEP A,B,C PROFILE Routine 06/13/2003 10: 36 EST from Last 3 Months or Most Recently Relevant to Health Maintenance Results * HEPATITIS A,B,C PROFILE- [facility] USE ONLY (06/13/2003 10:36 EST) Hepatitis B Surface Ag Neg [facility] Hepatitis B Surface Ab Neg [facility] Hep B Core Ab Neg [facility] Hep A Antibody Neg [facility] Hepatitis C Ab Neg [facility] 06/13/2003 10:3 6 EST 06/13/2003 21:04 EST Provider Unknown CHEMISTRY & BLOOD GA S ORDERABLES [facility] [address] [place] [address] from Last 3 Months or Most Recently Relevant to Health Maintenance Care Teams Termite Control Technician Relationship Specialty Start Date End Date Judie Potter MD [address] [place] [address] PCP - General 09/13/19
--- OUTSIDE RECORDS SUMMARY | 2023-12-05 14:54 | XMS_ITS | Encounter Summary ---
[place] [address] Care Team Providers Care Services Clerk Name Role Phone Nakul Ye MD Primary Care Provider [phone] Encounter Details Date Type Department Care Team (Late st Contact Info) Description 04/14/2010 2:15 PM EST [place] [address] [address] MIQUEL GARCIA Discharge Disposition: Home Social History Tobacco Use [...] on filedocumented in this encounter Care Teams Services Clerk Relationship Specialty Start Date End Date Nakul Ye MD [address] [place] [address] PCP - General 02/09/10 04/01/15 documented as of this encounter
--- OUTSIDE RECORDS SUMMARY | 2023-12-05 14:54 | XMS_ITS | Encounter Summary ---
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 (Primary Dx) Social History Tobacco Use Types Packs/Day Years Used Date Smoking Tobacco: Never Assessed Sex and Gender Information Value Date Recorded Sex Assigned at Female 11/19/2023 10:16 AM EDT Gender Identity Female 11/19/2023 10:16 AM EDT Sexual Orientation Not on file documented as of this encounter Plan of Treatment Not on file documented as of this encounter Visit Diagnoses Diagnosis Chronic deep vein thrombosis of left femoral vein- Primary 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
--- OUTSIDE RECORDS SUMMARY | 2023-12-05 14:54 | XMS_ITS | Encounter Summary ---
[place] [address] Care Team Providers Care Clip Coater Name Role Phone Nakul Ye MD Primary Care Provider [phone] Reason for Visit * Reason Onset Date Comments Medication Refill 10/27/2010 Encounter Details Date Type Department Care Team (Late st Contact Info) Description 10/27/2010 [place] [address] Jovan Steiner Jr., MD [facility] [place] [address] Pain (Primary Dx) Social History Tobacco Use [...] pain documented in this encounter Care Teams Clip Coater Relationship Specialty Start Date End Date Nakul Ye MD [address] [place] [address] PCP - General 02/09/10 04/01/15 documented as of this encounter
--- OUTSIDE RECORDS SUMMARY | 2023-12-05 14:54 | XMS_ITS | Encounter Summary ---
[place] [address] Care Team Providers Care Sonar Subsystem Equipment Operator Name Role Phone Nakul Ye MD Primary Care Provider [phone] Reason for Visit * Reason Onset Date Comments Medication Refill 06/29/2010 Encounter Details Date Type Department Care Team (Late st Contact Info) Description 06/29/2010 Ref[place] [address] Jovan Steiner Jr., MD [facility] [place] [address] Pain (Primary Dx) Social History Tobacco Use [...] pain documented in this encounter Care Teams Sonar Subsystem Equipment Operator Relationship Specialty Start Date End Date Nakul Ye MD [address] [place] [address] PCP - General 02/09/10 04/01/15 documented as of this encounter
--- OUTSIDE RECORDS SUMMARY | 2023-12-05 14:54 | XMS_ITS | Encounter Summary ---
[place] [address] Care Team Providers Care Head Of Maintenance Name Role Phone Nakul Ye MD Primary Care Provider [phone] Reason for Visit * Reason Comments Medication Refill Encounter Details Date Type Department Care Team (Late st Contact Info) Description 02/18/2011 Refill [place] [address] Tommie Lopez MD [facility] [place] [address] Social History Tobacco Use Types Packs/Day Years [...] on filedocumented in this encounter Care Teams Head Of Maintenance Relationship Specialty Start Date End Date Nakul Ye MD [address] [place] [address] PCP - General 02/09/10 04/01/15 documented as of this encounter
--- OUTSIDE RECORDS SUMMARY | 2023-12-05 14:54 | XMS_ITS | Encounter Summary ---
Author Organization [facility] [place] [address] Care Team Providers Care Brand Planner Name Role Phone Lorene Aldrich MD Primary Care Provider [phone]- [phone] Reason for Visit * Reason Comments Referral Encounter Details Date Type Department Care Team (Late st Contact Info) Description 06/12/2015 10:30 AM EDT Office [place] [address] Venancio Esparza Jr., MD [facility] [place] [address] Marshall Bradford MD [facility] [place] [address] VANEGAS (dyspnea on exertion) Social History Tobacco Use Types Packs/Day Years Used Date Smoking Tobacco: Every Day Sex and Gender Information Value Date Recorded Sex Assigned at Female 11/19/2023 10:16 AM EDT Gender Identity Female 11/19/2023 10:16 AM EDT Sexual Orientation Not on file documented as of this encounter Last Filed Vital Signs Vital Sign Reading Time Taken Comments Blood Pressure 133/73 06/12/2015 10:50 AM EDT Pulse 84 06/12/2015 10:50 AM EDT Temperature - - Respiratory Rate 20 06/12/2015 10:50 AM EDT Oxygen Saturation 98% 06/12/2015 10:50 AM EDT Inhaled Oxygen Concentration - - Weight 75.8 kg (167 lb) 06/12/2015 10:50 AM EDT Height 159.5 cm (5' 2.8) 06/12/2015 10:50 AM ED T Body Mass Index 29.77 06/12/2015 10:50 AM EDT documented in this encounter Progress Notes * Venancio Esparza Jr., MD - 06/16/2015 10:23 AM EDT Pulmonary Attending Attestation I personally interviewed and examined Ms. Jimenez on 06/12/2015. I discussed my findings with Dr. Bradford. I agree with the assessment and plan as outlined above, including additional serologic testingtoday and subsequent bronchoscopy. --Renate Esparza MD * Marshall Bradford - 06/12/2015 11:25 AM EDT [facility] Section of Pulmonary Medicine Outpatient Consultation Date of Encounter: 06/12/2015 Referring Provider: Caprice Garay, Dependency Case Manager [address] [place] [address] Reason for Consult: I was asked to evaluate this patient for dyspnea and wheeze. I have personally interviewed and examined the patient, and independently viewed her radiographic studies and laboratory data. Chief Complaint: Dyspnea HPI: Ms. Jimenez is a 39 y.o. female who presents for review. She describes no respiratory difficulty prior to October 2014. She says one day she just noticed that she was much more dyspneic climbing a flight of stairs than she would be normally. As time went on she developed cough, wheeze and one on occasion yellow/green sputum. Inhaled albuterol perhaps helps a little. Courses of antibiotics don't really help but prednisone helps a lot and she is currently half way through a 2-3 week taper from 60mg to 0mg and feels good today. Uses advair with spacer - we reviewed her inhaler technique today which was good. No sinus or nasal symptoms, no heartburn. No aspirin sensitivity. Home environment pretty good, some dust, some mold in basement now all cleaned and resolved. Past Medical History: Patient Active Problem List Diagnosis Code ??? Grave's disease-treated ??? Hypothyroidism-after 131 dye E03.9 DVT on OCP as young woman DVT following trauma - pelvic fractures in her early 30s, not on anticoagulation currently Medications: Current Outpatient Prescriptions Medication Sig Dispense Refill ??? levothyroxine (SYNTHROID) 112 mcg tablet Take by mouth daily. One half tablet per day Labs next week; appt is needed to be schedule 30 tablet 1 ??? diaZEPam (VALIUM) 10 mg tablet 10 MG = 1 Tablet(s), PO, take 1/2 hr before MRI ??? predniSONE (DELTASONE) 10 mg Tablet 0 ??? levothyroxine (SYNTHROID) 88 mcg Tablet 0 ??? SUBOXONE 8-2 mg Film 0 ??? albuterol (PROVENTIL) 2.5 mg /3 mL (0.083 %) Solution for Nebulization 0 ??? PROAIR HFA 90 mcg/actuation HFA Aerosol Inhaler 0 ??? ADVAIR HFA 230-21 mcg/actuation HFA Aerosol Inhaler 0 No current facility-administered medications for this visit. Allergies: Carrot; Adhesive tape; and No known drug allergies Social History: History Substance Use Topics ??? Smoking status: Current Every Day Smoker ??? Smokeless tobacco: Not on file ??? Alcohol Use: Not on file Smokes 1 pack menthols daily Currently no pets - dogs previously Lives with stepan - 2 kids Mostly working at home - some decorating - paint had been a little irritating No hobbies with potential precipitants Family History: Mother and many aunts had breast and ovarian cancers at an early age Brother with Asthma that he grew out of Son has mild asthma Review of Systems: All other systems reviewed and negative other than as outlined here and in the HPI. Physical Examination: BP 133/73 mmHg Pulse 84 Resp 20 Ht 159.5 cm (5' 2.8) Wt 75.751 kg (167 lb) BMI 29.78 kg/m2 SpO2 98% RA Constitutional: Eyes: Pupils equal and reactive to light, no icterus or pallor ENT: Normal oropharynx, no nasal discharge, no cervical or supraclavicular lymphadenopathy Cardiovascular: S1 + S2 + 0, no JVD, no edema Respiratory: Resonant to percussion and clear to auscultation throughout except wheezy throughout (mild) GI: No jaundice, abdomen soft and non-tender, no masses or organomegaly, normal bowel sounds Musculoskeletal: No clubbing Skin: No rashes Neuro: Alert and orientated, no obvious cranial nerve palsy, normal power all limbs Psych: Normal mood, affect, appearance and speech Basic Labs: None CXR: 02/[address] Chest: 04/2015 Some patchy ggo - diffuse, possible lingula bronchiectasis / bronchial thickening Pulmonary Function Tests: 05/2015 FEV1 / FVC 0.64 FVC 2.98 (83%) FEV1 1.92 (65%) Reversibility TLC DLCO 107% Assessment: Asthmatic phenotype and symptoms with supportive PFTs but still has some wheeze despite >1week on prednisone and the CT findings are atypical for pure asthma. I wonder about bronchiolitis here andthings like ABPA, HP, churg hao are on the differential. It's hard to get high yield testing for such things with the patient on prednisone so wee will plan a day of testing off prednisone in the near future. Recommendations / Plan: Complete steroid taper Continue Advair and albuterol Return in about 2 weeks for labs (IgE, Aspergillus antigen, ANCA, CBC, U/A) and bronchoscopy with BAL Plan was discussed with attending physician Dr Esparza who saw the patient in person. MARSHALL BRADFORD MD Digital Advertising Specialist Pager [phone] documented in this encounter Plan of Treatment Not on file documented as of this encounter Results * (ABNORMAL) _Urinalysis with microscopic (06/25/2015 8:41 AM EDT) Glucose, Urine Dipstick Negative Negative mg/dL [facility] Protein, Urine Dipstick Negative Negative mg/dL [facility] Bilirubin, Urine Dipstick Negative Negative mg/dL [facility] Comment: Clinical correlation required for positive Urine Bilirubin results as false positive may occur with some drugs and drug related products. If a false positive is suspected a serum total bilirubin should be considered if clinically indicated. Urobilinogen, Urine Dipstick Normal Normal mg/dL [facility] pH, Urn (dipstick) 5.0 5.0 - 8.0 [facility] Blood, Urine Dipstick Negative Negative mg/dL [facility] Ketone, Urine Dipstick Negative Negative mg/dL [facility] Nitrite, Urine Dipstick Negative Negative [facility] Leukocytes, Urine Dipstick Negative Negative [facility] Appearance, Urine Dipstick Hazy(A) Clear [facility] Specific [place] Urine Automated 1.025 1.002 - 1.030 [facility] Color, Urine Dipstick Yellow Yellow [facility] RBC, Urine <1 0 - 4 /HPF [facility] WBC, Urine 2 0 - 5 /HPF [facility] Bacteria, Urine Rare(A) None /HPF [facility] Squamous Epithelial Cells, Urine 18(H) <=4 /HPF [facility] Urine specimen (specimen) 06/25/2015 8:41 AM EDT 06/25/2015 11:32 AM EDT Narrative Resulting Agency Comment Spec In Lab Venancio Esparza Jr., MD URINE ORDERABLES Performing Organization Address City/[facility]/[place] [address] * Proteinase-3 Antibody (06/25/2015 8:18 AM EDT) Proteinase 3 Antibody <2.0 <=20.0 unit(s) [facility] Blood specimen (specimen) 06/25/2015 8:18 AM EDT 06/25/2015 11:26 AM EDT Narrative Resulting Agency Comment Spec In Lab Venancio Esparza Jr., MD IMMUNOLOGY ORDER DANIEL Performing Organization Address [facility]/ZIP Co de Phone Number [facility] [place] [address] * Myeloperoxidase Ab (06/25/2015 8:18 AM EDT) Myeloperoxidase Antibody <2.0 <=20.0 unit(s) [facility] Blood specimen (specimen) 06/25/2015 8:18 AM EDT 06/25/2015 11:26 AM EDT Narrative Resulting Agency Comment Spec In Lab Venancio Esparza Jr., MD IMMUNOLOGY ORDER DANIEL Performing Organization Address [facility] de Phone Number [facility] [place] [address] * Cytoplasmic Neutrophilic Ab (06/25/2015 8:18 AM EDT) C-Anca (JULY) Negative Negative [facility] Comment: Test Performed by: [facility] [place] [address] Head Soft Sugar Operator: Luis Felipe Gilmore II, M.D., Ph.D. P-Anca (JULY) Negative Negative [facility] Comment: Negative for cANCA and pANCA patterns by immunofluorescence. Test Performed by: [facility] [place] [address] Head Soft Sugar Operator: Luis Felipe Gilmore II, M.D., Ph.D. Blood specimen (specimen) 06/25/2015 8:18 AM EDT 06/25/2015 9:43 AM EDT Narrative Resulting Agency Comment Spec In Lab Venancio Esparza Jr., MD LAB SEND OUT ORD ERABLES Performing Organization Address [facility] de Phone Number [facility] [place] [address] * Aspergillus fumigatus IgE (06/25/2015 8:18 AM EDT) Aspergillus Fumigatus, IgE <0.35 kU/L [facility] Comment: Reference Ranges <0.35 kU/L Class [...] MD IMMUNOLOGY ORDER DANIEL Performing Organization Address [facility] Co de Phone Number [facility] [place] [address] * Aspergillus Antigen (06/25/2015 8:18 AM EDT) Pathologist [facility] [place] Aspergillus Ag (JULY) <0.500 <0.5 Index [facility] Comment: ADDITIONAL INFORMATION This is a qualitative test and the result index value should not be used to determine disease severity or monitor response to therapy. Test Performed by: [place] [address] Head Soft Sugar Operator: Luis Felipe Gilmore II, M.D., Ph.D. Blood specimen (specimen) 06/25/2015 8:18 AM EDT 06/25/2015 9:43 AM EDT Narrative Resulting Agency Comment Spec In Lab Venancio Esparza Jr., MD LAB SEND OUT ORD ERABLES Performing Organization Address [facility] Co de Phone Number [facility] [place] [address] * Immunoglobulin E (IgE) (06/25/2015 8:18 AM EDT) Pathologist [facility] [place] IgE, Total 51 <=101 kU/L [facility] Comment: Pediatric age-specific reference ranges are reflected in result ranges. Adult reference ranges: <25 kU/L ??Normal 25-100 kU/L Equivocal >100 kU/L ??Elevated Blood specimen (specimen) 06/25/2015 8:18 AM EDT 06/25/2015 11:26 AM EDT Narrative Resulting Agency Comment Spec In Lab Venancio Esparza Jr., MD IMMUNOLOGY ORDER DANIEL [facility] [place] [address] * XR Chest Routine PA & Lateral [...] on exertion) Other dyspnea and respiratory abnormality VANEGAS (dyspnea on exertion) Other dyspnea and respiratory abnormality documented in this encounter Care Teams Brand Planner Relationship Specialty Start Date End Date Lorene Aldrich MD [address] [place] [address] PCP - General Family Medicine 06/12/15 documented as of this encounter
--- OUTSIDE RECORDS SUMMARY | 2023-12-05 14:54 | XMS_ITS | Encounter Summary ---
[place] [address] Care Team Providers Care Central Control Room Operator Name Role Phone Nakul Ye MD Primary Care Provider [phone]- [phone] Reason for Visit * Reason Onset Date Comments Medication Refill 08/17/2010 Encounter Details Date Type Department Care Team (Late st Contact Info) Description 08/17/2010 Refill [place] [address] Jovan Steiner Jr., MD [facility] [place] [address] Pain (Primary Dx) Social History Tobacco Use [...] pain documented in this encounter Care Teams Central Control Room Operator Relationship Specialty Start Date End Date Nakul Ye MD [address] [place] [address] PCP - General 02/09/10 04/01/15 documented as of this encounter
--- OUTSIDE RECORDS SUMMARY | 2023-12-05 14:54 | XMS_ITS | Encounter Summary ---
Author Organization [facility] [place] [address] Care Team Providers Care Mill Helper Name Role Phone Lorene Aldrich MD Primary Care Provider [phone] Encounter Details Date Type Department Care Team (Late st Contact Info) Description 08/26/2009 Orders [place] [id number] Jovan Steiner Jr., MD [facility] [place] [address] Social History Tobacco Use Types Packs/Day Years [...] Procedure Name Priority Date/Time Associated Diagnosis Comments SURGICAL PATHOLOGY REPORT Routine 08/26/2009 11:55 AM EDT documented in this encounter Results * Surgical Pathology Report (08/26/2009 11:55 AM EDT) Surgical Pathology Report [id number] ? Location: [facility]; [facility]; A The signing pathologist has (i) examined the relevant preparation(s) for the specimen(s) and (ii) rendered or confirmed the diagnosis(es). . ?Pathology Surgical Pathology Final Report Clinical Information Specimen Submitted: A - Femoral Head, Right Hip Clinical History: Not provided Clinical Diagnosis: AVN right hip Gross Description Labeled/Fixativ e: ? Femoral head, right hip; fresh. Quantity/Size: ?One femoral head, 4.4 cm in greatest dimension. Tissue Description: ?? Femoral head resection with diffuse mottling of the ?articular surface. ??The specimen is serially sectioned to reveal a tatum area in the center with focal areas of defect. ??As well on the cut section, small fragments of shiny elements are seen on the bone. Sections/Proces sing: ??(R3, decal) ??aje/JDK Microscopic Description Slides reviewed, microscopic description not recorded. Diagnosis Femoral head, right: ?? Osteonecrosis. CR-0 08/28/09 VAM 08/28/09 Verified by: ? Onel Hogan MD ?Pathologist ?(Electronic Signature) The attending pathologist whose signature appears on this report has reviewed all diagnostic slides and has edited the gross and/or microscopic portion of the report in rendering the final pathologic diagnosis. RADHA LOZA 08/26/2009 11:5 5 AM EDT Jovan Steiner Jr., MD PATHOLOGY/CYTOLOG Y ORDERABLES RADAH LOZA documented in this encounter Visit Diagnoses Not on filedocumented in this encounter Care Teams Mill Helper Relationship Specialty Start Date End Date Lorene Aldrich MD [address] [place] [address] PCP - General Family Medicine 06/12/15 documented as of this encounter
--- OUTSIDE RECORDS SUMMARY | 2023-12-05 14:54 | XMS_ITS | Encounter Summary ---
Author [place] [address] Care Team Providers Care Public Relations Professional Name Role Phone Nakul Ye MD Primary Care Provider [phone]- [phone] Reason for Visit * Reason Onset Date Comments Medication Refill 12/12/2011 Encounter Details Date Type Department Care Team (Late st Contact Info) Description 12/12/2011 Refill [place] [address] Tommie Lopez MD [facility] [place] [address] Hypothyroidism Social History Tobacco Use Types Packs/Day Years Used Date Smoking Tobacco: Never Assessed Sex and Gender Information Value Date Recorded Sex Assigned at Female 11/19/2023 10:16 AM EDT Gender Identity Female 11/19/2023 10:16 AM EDT Sexual Orientation Not on file documented as of this encounter Plan of Treatment Not on file documented as of this encounter Visit Diagnoses Diagnosis Hypothyroidism Unspecified hypothyroidism documented in this encounter Care Teams Public Relations Professional Relationship Specialty Start Date End Date Nakul Ye MD [address] [place] [address] PCP - General 02/09/10 04/01/15 documented as of this encounter
--- OUTSIDE RECORDS SUMMARY | 2023-12-05 14:54 | XMS_ITS | Encounter Summary ---
[place] [address] Care Team Providers Care Parcel Contractor Name Role Phone Nakul Ye MD Primary Care Provider +1- [phone] Encounter Details Date Type Department Care Team (Late st Contact Info) Description 07/27/2010 Abstract Hematology [place] [phone] Ingrid Dougherty, RN Social History Tobacco Use Types Packs/Day Years Used Date Smoking Tobacco: Never Assessed Sex and Gender Information Value Date Recorded Sex Assigned at Female 11/19/2023 10:16 AM EDT Gender Identity Female 11/19/2023 10:16 AM EDT Sexual Orientation Not on file documented as of this encounter Last Filed Vital Signs Vital Sign Reading Time Taken Comments Blood Pressure - - Pulse - - Temperature - - Respiratory Rate - - Oxygen Saturation - - Inhaled Oxygen Concentration - - Weight - - Height 160 cm (5' 2.99) 08/10/2009 4:10 PM EDT Body Mass Index - - documented in this encounter Plan of Treatment Not on file documented as of this encounter Visit Diagnoses Not on filedocumented in this encounter Care Teams Parcel Contractor Relationship Specialty Start Date End Date Nakul Ye MD [address] [place] [address] PCP - General 02/09/10 04/01/15 documented as of this encounter
--- OUTSIDE RECORDS SUMMARY | 2023-12-05 14:54 | XMS_ITS | Encounter Summary ---
[place] [address] Care Team Providers Care Smoke Jumper Name Role Phone Nakul Ye MD Primary Care Provider +1- [phone] Reason for Visit * Reason Onset Date Comments Medication Refill 09/13/2010 Encounter Details Date Type Department Care Team (Late st Contact Info) Description 09/13/2010 [place] [address] Jovan Steiner Jr., MD [facility] DR ORTHOPAEDIC [place] [address] Pain (Primary Dx) Social History Tobacco Use [...] pain documented in this encounter Care Teams Smoke Jumper Relationship Specialty Start Date End Date Nakul Ye MD [address] [place] [address] PCP - General 02/09/10 04/01/15 documented as of this encounter
--- OUTSIDE RECORDS SUMMARY | 2023-12-05 14:54 | XMS_ITS | Encounter Summary ---
[place] [address] Care Team Providers Care Cytology Supervisor Name Role Phone Nakul Ye MD Primary Care Provider +1- [phone] Reason for Visit * Reason Onset Date Comments Medication Refill 07/08/2010 Encounter Details Date Type Department Care Team (Late st Contact Info) Description 07/08/2010 [place] [address] Jovan Steiner Jr., MD [facility] [place] [address] Pain (Primary Dx) Social History Tobacco Use [...] pain documented in this encounter Care Teams Cytology Supervisor Relationship Specialty Start Date End Date Nakul Ye MD [address] [place] [address] PCP - General 02/09/10 04/01/15 documented as of this encounter
--- OUTSIDE RECORDS SUMMARY | 2023-12-05 14:54 | XMS_ITS | Encounter Summary ---
[place] [address] Care Team Providers Care Sinter Machine Operator Name Role Phone Nakul Ye MD Primary Care Provider +1- [phone] Reason for Visit * Reason Onset Date Comments Medication Refill 09/30/2010 Encounter Details Date Type Department Care Team (Late st Contact Info) Description 09/30/2010 Ref[place] [address] Aicha Hughes, RN Pain (Primary Dx) Social History Tobacco Use [...] pain documented in this encounter Care Teams Sinter Machine Operator Relationship Specialty Start Date End Date Nakul Ye MD [address] [place] [address] PCP - General 02/09/10 04/01/15 documented as of this encounter
--- OUTSIDE RECORDS SUMMARY | 2023-12-05 14:54 | XMS_ITS | Encounter Summary ---
Author Organization [facility] Address [address] [place] [address] Care Team Providers Care Bus Boy Name Role Phone Judie Potter MD Primary Care Provider Reason for Visit * Reason Onset Date Comments Other 10/21/2020 Encounter Details Date Type Department Care Team (Late st Contact Info) Description 10/21/2020 Telephone [facility] Gastroenterology - [facility] [address] [place] [address] Assoc, [facility], [employer] Other Social History Tobacco Use Types Packs/Day Years [...] 11:59 EDT Sexual Orientation Not on file documented as of this encounter Miscellaneous Notes * Telephone Encounter - Tita Messer - 10/21/2020 0907 EDT Left a message that I am cancelling her appointment per Dr. Paulson. Told her that we recommend that she follow up with the Familial Cancer/Genetic people first. documented in this encounter Plan of Treatment Not on file documented as of this encounter Visit Diagnoses Not on filedocumented in this encounter Care Teams Bus Boy Relationship Specialty Start Date End Date Judie Potter MD [address] [place] [address] PCP - General 09/13/19 documented as of this encounter
--- OUTSIDE RECORDS SUMMARY | 2023-12-05 14:54 | XMS_ITS | Encounter Summary ---
Author Organization [facility] [place] [address] Care Team Providers Care Glass Sander Name Role Phone Nakul Ye MD Primary Care Provider +1- [phone] Encounter Details Date Type Department Care Team (Late st Contact Info) Description 12/10/2010 Telephone [place] [address] Jovan Steiner Jr., MD [facility] [place] [address] Social History Tobacco Use Types Packs/Day Years Used Date Smoking Tobacco: Never Assessed Sex and Gender Information Value Date Recorded Sex Assigned at Female 11/19/2023 10:16 AM EDT Gender Identity Female 11/19/2023 10:16 AM EDT Sexual Orientation Not on file documented as of this encounter Miscellaneous Notes * Telephone Encounter - Lizy Gary RN - 12/10/2010 12:19 PM EDT LOWER EXTREMITY TEAM NURSE CALL Problem: Persistent pain 1 + yr. S/P Proposed Procedures: TOTAL HIP ARTHROPLASTY /RIGHT/PINNACLE LINDA./S-ROM FEMORAL Actual Procedures: TOTAL HIP ARTHROPLASTY /RIGHT/PINNACLE LINDA./S-ROM FEMORAL 14/9+4 STEM, B-SM SLEEVE, 30 BIOLOXX HEAD, 50MM SECT-2 CUP, 10 DEG HOODED +4 POLY Post Op Diagnosis: AVN RIGHT HIP POST TRAUMA Patient was scheduled for follow up visit with Dr. Steiner today. The plan was for him to evaluate her current pain and discuss options to manage her pain. She did not come to the visit as scheduled. Dr. Steiner will not continue to prescribe her pain medications until he is able to see her and evaluate her condition. documented in this encounter Plan of Treatment Not on file documented as of this encounter Visit Diagnoses Not on filedocumented in this encounter Care Teams Glass Sander Relationship Specialty Start Date End Date Nakul Ye MD [address] [place] [address] PCP - General 02/09/10 04/01/15 documented as of this encounter
--- OUTSIDE RECORDS SUMMARY | 2023-12-05 14:54 | XMS_ITS | Encounter Summary ---
Author Organization [place] [id number] Care Team Providers Care Track Fitter Name Role Phone Nakul Ye MD Primary Care Provider +1- [phone] Encounter Details Date Type Department Care Team (Late st Contact Info) Description 04/14/2010 1:20 PM EST Procedure visit [place] [address] Social History Tobacco Use Types Packs/Day Years [...] on filedocumented in this encounter Care Teams Track Fitter Relationship Specialty Start Date End Date Nakul Ye MD [address] [place] [address] PCP - General 02/09/10 04/01/15 documented as of this encounter
--- OUTSIDE RECORDS SUMMARY | 2023-12-05 14:54 | XMS_ITS | Encounter Summary ---
[place] [address] Care Team Providers Care Machine Hamper Maker Name Role Phone Nakul Ye MD Primary Care Provider [phone]- [phone] Reason for Visit * Reason Onset Date Comments Medication Refill 09/03/2010 Encounter Details Date Type Department Care Team (Late st Contact Info) Description 09/03/2010 [place] [address] Tommie Garcia PA [facility] [place] [address] Pain (Primary Dx) Social History Tobacco Use [...] pain documented in this encounter Care Teams Machine Hamper Maker Relationship Specialty Start Date End Date Nakul Ye MD [address] [place] [address] PCP - General 02/09/10 04/01/15 documented as of this encounter
--- OUTSIDE RECORDS SUMMARY | 2023-12-05 14:54 | XMS_ITS | Encounter Summary ---
Author Organization [facility] [address] [place] [address] Care Team Providers Care Travel Assistant Name Role Phone Lorene Aldrich MD Primary Care Provider [phone]- [phone] Encounter Details Date Type Department Care Team (Late st Contact Info) Description 06/11/2015 Orders [place] [address] Marshall Coughlin MD [facility] [place] [address] Chronic obstructive pulmonary disease, unspecified COPD type [...] this encounter Results * Pulmonary Function Testing (06/15/2015 1:38 AM EDT) Narrative Tommie Reynolds MD - 06/15/2015 1:38 AM EDT Tommie Reynolds MD ? 06/15/2015 ??1:38 AM FVC within normal limits. FEV1, FEV1/FVC are low. Diffusing capacity normal. IMPRESSION: Obstructive lung disease. Venancio Esparza Jr., MD PFT ORDERABLES documented in this encounter Visit Diagnoses Diagnosis Chronic obstructive pulmonary disease, unspecified COPD type Chronic obstructive pulmonary disease, unspecified COPD type documented in this encounter Care Teams Travel Assistant Relationship Specialty Start Date End Date Lorene Aldrich MD [address] [place] [address] PCP - General Family Medicine 06/12/15 documented as of this encounter
--- OUTSIDE RECORDS SUMMARY | 2023-12-05 14:54 | XMS_ITS | Encounter Summary ---
Author Organization [facility] [place] [address] Care Team Providers Care Lathe Machine Operator Name Role Phone Caprice Garay APRN Primary Care Provider [phone] Encounter Details Date Type Department Care Team (Late st Contact Info) Description 06/09/2015 Telephone [place] [phone] Marshall Bradford MD [facility] [place] [address] Social History Tobacco Use Types Packs/Day Years Used Date Smoking Tobacco: Never Assessed Sex and Gender Information Value Date Recorded Sex Assigned at Female 11/19/2023 10:16 AM EDT Gender Identity Female 11/19/2023 10:16 AM EDT Sexual Orientation Not on file documented as of this encounter Miscellaneous Notes * Telephone Encounter - Marshall Bradford - 06/09/2015 10:40 AM EDT Pulmonary Called by Dr Springer, [facility] 39 year old, heavy smoker, history of asthma Recurrent exacerbations that improve with prednisone CT done at [facility]: 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 We have scheduled for June - should probably see sooner. I will see if can be expidited MARSHALL BRADFORD MD [facility] Fellow Pager #[phone] documented in this encounter Plan of Treatment Not on file documented as of this encounter Visit Diagnoses Not on filedocumented in this encounter Care Teams Lathe Machine Operator Relationship Specialty Start Date End Date Caprice Garay APRN [address] [place] [address] PCP - General Family Medicine 04/02/15 06/11/15 documented as of this encounter
--- OUTSIDE RECORDS SUMMARY | 2023-12-05 14:54 | XMS_ITS | Encounter Summary ---
Author Organization [facility] [place] [address] Care Team Providers Care Insurance Application Investigator Name Role Phone Nakul Ye MD Primary Care Provider [phone]- [phone] Encounter Details Date Type Department Care Team (Late st Contact Info) Description 12/14/2010 Notes [place] [phone] Jovan Steiner Jr., MD [facility] [place]OPAED[place] [address] Social History Tobacco Use Types Packs/Day Years Used Date Smoking Tobacco: Never Assessed Sex and Gender Information Value Date Recorded Sex Assigned at Female 11/19/2023 10:16 AM EDT Gender Identity Female 11/19/2023 10:16 AM EDT Sexual Orientation Not on file documented as of this encounter Progress Notes * Ani Turner RN - 12/14/2010 4:41 PM EDT Message from patient today on VM of Lizy Gary RN to Dr Paolo Steiner. Patient states she is calling to informs us she has contacted an Drama Teacher who advises patient that Dr Steiner cannot opt to not prescribe medications (Vicodin) for patient without properly weaning her from same. Patient states I've been in pain over past few days and it's probably because I've not taken any medication. patient goes on to say in her voice mail that unless Dr Jya prescribes for her she is going to file suit with her Drama Teacher. Contacted by Lizy Gary re: same and Dr Steiner requests advice from Risk Mgmt. Spoke directly to Lashawn Mejia who advises the followin. Notify patients PCP that we will no longer be prescribing narcotics for this patient and reason for same. 2. Advises patient that is she feels she is withdrawing to seek care through local ER 3. No further prescriptions from Orthopaedics Call placed to patient via cell and at home. No answer at either number. Message left to contact this contract technical writer. Call placed to PCP's office. Patient now seeing Dr Reggie Camp as PCP,office aware of our concerns. documented in this encounter Plan of Treatment Not on file documented as of this encounter Visit Diagnoses Not on filedocumented in this encounter Care Teams Insurance Application Investigator Relationship Specialty Start Date End Date Nakul Ye MD [address] [place] [address] PCP - General 02/09/10 04/01/15 documented as of this encounter
--- OUTSIDE RECORDS SUMMARY | 2023-12-05 14:54 | XMS_ITS | Encounter Summary ---
[place] [address] Care Team Providers Care Foundation Drill Operator Name Role Phone Camille Aldrich MD Primary Care Provider [phone] Reason for Visit * Auth/Cert Specialty Diagnoses / Procedures Referred By Contac t Referred To Contact Diagnoses VANEGAS Procedures PRO BRONCHOSCOPY, DIAGNOSTIC BRONCHOSCOPY Referral ID Status Reason Start Date Expiration Date Visits Re quested Visits Authorized [id number] 1 1 Encounter Details Date Type Department Care Team (Latest Contact Info) Description 06/25/2015 8:26 AM EDT - 06/25/2015 11:48 AM EDT Hospital Encounter [place] [phone] Venancio Esparza Jr., MD [facility] [place] [address] Discharge Disposition: Home Social History Tobacco Use [...] Contact Numbers Monday - Monday Pulmonary Clinic [phone]-[phone] Same Day Endoscopy [phone] Otherwise call [facility] and ask to speak to the Pulmonary Doctor hr business partner consultant [phone] Discharge instructions reviewed with patient who expresses [...] signed. [facility] documented in this encounter Plan of Treatment Not on file documented as of this encounter Procedures Procedure Name Priority Date/Time Associated Diagnosis Comments FUNGUS CULTURE & CALC STAIN Routine 06/25/2015 10:00 AM EDT NON-LIVESTOCK NUTRITION TERRITORY MANAGER FINAL REPORT Routine 06/25/2015 10:00 AM EDT [...] EDT documented in this encounter Results * Non-Editor Continuity And Script Final Report (06/25/2015 10:00 AM EDT) Diagnosis Discussion [id number] ? Location: 4T; EA10; A The signing pathologist has (i) examined the relevant preparation(s) for the specimen(s) and (ii) rendered or confirmed the diagnosis(es). . ? Non-Editor Continuity And Script Final DIAGNOSIS Negative for Malignancy 06/26/15 ?Screened by: ? DMG ?Rescreened by: ?? SUSANNE 06/26/15 ?Verified by: ? Cheryl SRIVASTAVA, Crow Liriano ? Pathologist ? (Electronic Signature) DISCUSSION [...] ??Cell Block 1. 06/26/2015 1:18 PM EDT [facility] BRONCHIAL STRUCTURE / Unknown 06/25/2015 10:00 AM EDT 06/25/2015 10:00 AM EDT Marshall Coughlin MD PATHOLOGY/CYTOLOGY O RDERABLES Performing Organization Address [facility] Co de Phone Number [facility] [place] [address] * Calcofluor White Stain (06/25/2015 10:00 AM EDT) Calcofluor Stain Calcofluor White Preparation: Negative [facility] Bronchoalveolar lavage fluid specimen (specimen) 06/25/2015 10:00 AM EDT 06/25/2015 11:20 AM EDT Narrative Resulting Agency Comment Spec In Lab Venancio Esparza Jr., MD MICROBIOLOGY - G ENERAL ORDERABLES Performing Organization Address [facility] de Phone Number [facility] [place] [address] * Fungus culture (06/25/2015 10:00 AM EDT) Fungus Culture No Fungus isolated [facility] Bronchoalveolar lavage fluid specimen (specimen) 06/25/2015 10:00 AM EDT 06/25/2015 11:20 AM EDT Narrative Resulting Agency Comment Spec In Lab Venancio Esparza Jr., MD MICROBIOLOGY - G ENERAL ORDERABLES Performing Organization Address [facility] de Phone Number [facility] [place] [address] * AFB culture Bronchial Alveolar Lavage (06/25/2015 10:00 AM EDT) Acid Fast Bacilli Culture No Acid Fast Bacilli isolated If active tuberculosis is suspected, the patient should be on [employer]. Call [facility] [phone]) for assistance if needed. [facility] Acid Fast Stain No Acid Fast Bacilli seen [facility] Bronchoalveolar lavage fluid specimen (specimen) 06/25/2015 10:00 AM EDT 06/25/2015 11:20 AM EDT Narrative Resulting Agency Comment Spec In Lab Venancio Esparza Jr., MD MICROBIOLOGY - G ENERAL ORDERABLES Performing Organization Address [facility] Co de Phone Number [facility] [place] [address] * Pneumocystis Carinii Stain Bronchial Alveolar Lavage (06/25/2015 10:00 AM EDT) Pneumocystis Carinii Stain Fluorescent stain negative for: Pneumocystis jiroveci (carinii) [facility] Bronchoalveolar lavage fluid specimen (specimen) 06/25/2015 10:00 AM EDT 06/25/2015 11:20 AM EDT Narrative Resulting Agency Comment Spec In Lab Venancio Esparza Jr., MD MICROBIOLOGY - G ENERAL ORDERABLES Performing Organization Address [facility] de Phone Number [facility] [place] [address] * (ABNORMAL) Lower Respiratory Culture Bronchial Alveolar Lavage (06/25/2015 10:00 AM EDT) Lower Respiratory Culture Many Haemophilus influenzae : Beta-lactamase result predicts organism is likely resistant to ampicillin and penicillin. Few mixed bacterial morphotypes suggestive of normal upper respiratory benjamin (A) [facility] Reviewed Stain Few White Blood Cells seen No squamous epithelial cells seen No microorganisms seen. (A) [facility] Gram Stain Few White Blood Cells seen No microorganisms seen. (A) [facility] Organism Haemophilus influenzae(A) [facility] Bronchoalveolar lavage fluid specimen (specimen) 06/25/2015 10:00 AM EDT 06/25/2015 11:20 AM EDT Narrative Resulting Agency Comment Spec In Lab Venancio Esparza Jr., MD MICROBIOLOGY - G ENERAL ORDERABLES Performing Organization Address [facility] Co de Phone Number [facility] [place] [address] * Cytopathology Non-Gynecological (06/25/2015 10:00 AM EDT) AP Specimen 06/25/2015 10:0 0 AM EDT 06/25/2015 11:09 AM EDT Narrative [facility] - 06/25/2015 11:09 AM EDT Specimen requisition ordered. ??Separate Pathology report to follow Resulting Agency Comment Spec In Lab Venancio Esparza Jr., MD PATHOLOGY/CYTOLO GY ORDERABLES Performing Organization Address [facility] [place]/State/ZIP Co de Phone Number [facility] [place] [place] [address] * BRONCHOSCOPY (06/25/2015 7:36 AM EDT) BRONCHOSCOPY [facility] Bronchoscopy ___ Patient Name: Jennifer Jimenez ? Procedure Date: 06/25/2015 7:36 AM ? N: [id number] ? Age: 39 ? ___ Procedure: ?Bronchoscopy Indications: ?Bilateral infiltrate Providers: ?Venancio Esparza Jr, MD [place] ?MD Ced (Fellow), Bay Dominguez ?MARCI Leonardo, Keena Joaquin Referring : ? Camille Aldrich [...] PROVATION documented in this encounter Visit Diagnoses Not on filedocumented in this encounter Active and Recently Administered [...] jelly (CANCELED) ONCE PRN, Starting on Eunice 06/25/15 [...] MD) documented in this encounter Care Teams Foundation Drill Operator Relationship Specialty Start Date End Date Camille Aldrich MD [address] [place] [address] PCP - General Family Medicine 06/12/15 documented as of this encounter
--- OUTSIDE RECORDS SUMMARY | 2023-12-05 14:54 | XMS_ITS | Clinical Summary ---
Author Organization [facility] Address [address] [place] [address] Care Team Providers Care Staff Reporter Name Role Phone Judie Potter MD Primary Care Provider [phone] Allergies Active Allergy Reactions Criticality Noted Date [...] 4-6 HOUTS PRN FOR WHEEZING 08/03/2019 Active Surgical History Surgery Date Site/Laterality Comments ANKLE FRACTURE SURGERY 2006 right HIP SURGERY external fixation/AVN -replacement JOINT REPLACEMENT right hip August 23 [facility] THYROID SURGERY TUBAL LIGATION 5.21.2002 Medical History Medical History Date Comments Hypothyroid Asthma Depression PE (pulmonary embolism) Arthritis Difficulty sleeping Social History Tobacco Use Types Packs/Day Years [...] 11:59 EDT Sexual Orientation Not on file Obstetrics History Last Filed Vital Signs Vital Sign Reading [...] 35.33 11/04/2019 1044 EDT Plan of Treatment Health Maintenance Due Date Last Done Comments Pneumococcal Immunization (1 of 2 - PCV) 07/17/1983 Hepatitis B Vaccine (1 of 3 - 19+ 3-dose series) 07/16 COVID-19 Vaccine ( - season) 2023 Hepatitis C Screen Completed 06/13/2003 Procedures Procedure Name Priority Date/Time Associated Diagnosis [...] [facility] Hep A Antibody Neg [facility] Hepatitis C Ab Neg [facility] 06/13/2003 10:3 6 EST 06/13/2003 21:04 EST Provider Unknown CHEMISTRY & BLOOD GA S ORDERABLES [facility] [address] [place] [address] from Last 3 Months or Most Recently Relevant to Health Maintenance Care Teams Staff Reporter Relationship Specialty Start Date End Date Judie Potter MD [address] [place] [address] PCP - General 09/13/19
--- OUTSIDE RECORDS SUMMARY | 2023-12-05 14:54 | XMS_ITS | Encounter Summary ---
[place] [address] Care Team Providers Care Devops Architect Name Role Phone Nakul Ye MD Primary Care Provider [phone]- [phone] Reason for Visit * Reason Onset Date Comments Medication Refill 05/26/2011 Encounter Details Date Type Department Care Team (Late st Contact Info) Description 05/26/2011 Ref[place] [address] Jenna Jackson [facility] [place] [address] Hypothyroidism Social History Tobacco Use Types Packs/Day [...] hypothyroidism documented in this encounter Care Teams Devops Architect Relationship Specialty Start Date End Date Nakul Ye MD [address] [place] [address] PCP - General 02/09/10 04/01/15 documented as of this encounter
--- OUTSIDE RECORDS SUMMARY | 2023-12-05 14:54 | XMS_ITS | Encounter Summary ---
[place] [address] Care Team Providers Care Fourdrinier Wire Weaver Name Role Phone Nakul Ye MD Primary Care Provider [phone] Encounter Details Date Type Department Care Team (Late st Contact Info) Description 2009 Orders [place] [phone] Jovan Steiner Jr., MD [facility] [place] [address] Social History Tobacco Use Types Packs/Day Years [...] Procedure Name Priority Date/Time Associated Diagnosis Comments FILM LIBRARY STORAGE ONLY MR HIP Routine 2009 12:15 PM EDT documented in this encounter Results * FILM LIBRARY- STORAGE ONLY MR HIP (2009 12:15 PM EDT) 2009 12:1 5 PM EDT Narrative [facility] - 07/23/2013 7:46 PM EDT This is a non-reportable exam. Procedure Note Bryan Jarrell - 07/23/2013 This is a non-reportable exam. Jovan Steiner Jr., MD IM FILM LIBRARY ORDERABLES RAD [address] [place] [address] documented in this encounter Visit Diagnoses Not on filedocumented in this encounter Care Teams Fourdrinier Wire Weaver Relationship Specialty Start Date End Date Nakul Ye MD [address] [place] [address] PCP - General 02/09/10 04/01/15 documented as of this encounter
--- OUTSIDE RECORDS SUMMARY | 2023-12-05 14:54 | XMS_ITS | Encounter Summary ---
[place] [address] Care Team Providers Care Oven Worker Name Role Phone Nakul Ye MD Primary Care Provider [phone] Encounter Details Date Type Department Care Team (Late st Contact Info) Description 06/09/2010 Orders [place] [phone] aFnnie Weathers APRN [facility] [place] [address] Social History Tobacco Use Types Packs/Day Years [...] Diagnosis Comments FILM LIBRARY STORAGE ONLY MR SPINE Routine 06/09/2010 3:41 PM EDT documented in this encounter Results * FILM LIBRARY- STORAGE ONLY MR SPINE (06/09/2010 3:41 PM EDT) Anatomical Region Laterality Modality Other 06/09/2010 3:41 PM EDT Narrative 05/09/2013 11:06 PM EST This is a non-reportable exam. Procedure Note Bryan Jarrell - 05/09/2013 This is a non-reportable exam. Fannie C June-Marker RECEPTIONIST TELEPHONE OPERATOR IMG FILM LIBR MAURA ORDERABLES documented in this encounter Visit Diagnoses Not on filedocumented in this encounter Care Teams Oven Worker Relationship Specialty Start Date End Date Nakul Ye MD [address] [place] [address] PCP - General 02/09/10 04/01/15 documented as of this encounter
--- OUTSIDE RECORDS SUMMARY | 2023-12-05 14:54 | XMS_ITS | Encounter Summary ---
Author Organization [facility] Address [facility] [place] [address] Care Team Providers Care Experimental Mechanic Outboard Motors Name Role Phone Jarrod Capricemarin Paul APRN Primary Care Provider Encounter Details Date Type Department Care Team (Late st Contact Info) Description 06/05/2015 - 06/05/2015 11:59 PM EDT Hospital Encounter Radiology Library [place] [address] [facility] Discharge Disposition: Home Social History Tobacco Use [...] Film 12 mg. 0 06/02/2015 levothyroxine (SYNTHROID) 88 mcg Tablet 125 mcg. 0 05/29/2015 06/08/2018 albuterol (PROVENTIL) 2.5 mg /3 mL (0.083 %) Solution for Nebulization 0 05/29/2015 10/19/2015 ADVAIR HFA 230-21 mcg/actuation HFA Aerosol Inhaler 0 03/25/2015 06/11/2018 levothyroxine (SYNTHROID) 112 mcg tabletIndications:Hypoth yroidism Take by mouth daily. One half tablet per day Labs next week; appt is needed to be schedule 30 tablet 1 12/12/2011 06/25/2015 diaZEPam (VALIUM) 10 mg tablet 10 MG = 1 Tablet(s), PO, take 1/2 hr before MRI 06/08/2010 10/19/2015 documented as of this encounter Plan of Treatment Not on file documented as of this encounter Procedures Procedure Name Priority Date/Time Associated Diagnosis Comments FILM LIBRARY STORAGE ONLY CT CHEST Routine 06/05/2015 12:00 AM EDT Pain documented in this encounter Results * Film Library- Storage Only CT Chest (06/05/2015 12:00 AM EDT) Narrative [facility] - 06/20/2015 1:30 PM EDT See PACS for result report. Dr Mario [facility] FILM LIBRARY ORD ERABLES Performing Organization Address City/State/[facility] Co de Phone Number [place], [place] documented in this encounter Visit Diagnoses Diagnosis Pain Generalized pain documented in this encounter Care Teams Experimental Mechanic Outboard Motors Relationship Specialty Start Date End Date Caprice Garay, SHEET METAL APPRENTICE [address] [place] [address] PCP - General Family Medicine 04/02/15 06/11/15 documented as of this encounter
--- OUTSIDE RECORDS SUMMARY | 2023-12-05 14:54 | XMS_ITS | Encounter Summary ---
Author Organization [facility] [place] [address] Care Team Providers Care Medical Device Sales Name Role Phone Caprice Garay APRN Primary Care Provider Encounter Details Date Type Department Care Team (Late st Contact Info) Description 06/05/2015 Ancillary Procedure Radiology Library at [facility] [place] [place] [phone] Lorene Aldrich MD [address] [place] [address] Social History Tobacco Use Types Packs/Day Years [...] CT CHEST Routine 06/05/2015 12:00 AM EDT documented in this encounter Results * Film Library- Storage Only CT Chest (06/05/2015 12:00 AM EDT) Narrative [facility] - 02/01/2019 1:44 PM EST This exam is auto-finalizing. It's purpose is for storage only. Lorene Aldrich MD IMG FILM LIBRARY OR DERABLES [facility] [place], [place] documented in this encounter Visit Diagnoses Not on filedocumented in this encounter Care Teams Medical Device Sales Relationship Specialty Start Date End Date Caprice Garay APRN [address] [place] [address] PCP - General Family Medicine 04/02/15 06/11/15 documented as of this encounter
--- OUTSIDE RECORDS SUMMARY | 2023-12-05 14:54 | XMS_ITS | Encounter Summary ---
[place] [address] Care Team Providers Care Stock Digger Name Role Phone Nakul Ye MD Primary Care Provider [phone] Encounter Details Date Type Department Care Team (Late st Contact Info) Description 06/16/2010 Orders [place] [phone] Fannie Weathers APRN [facility] [place] [address] Social History Tobacco Use Types Packs/Day Years [...] Name Priority Date/Time Associated Diagnosis Comments XR LUMBAR SPINE 2 OR 3 VIEWS Routine 06/16/2010 10:18 AM EDT documented in this encounter Results * XR LUMBAR SPINE 2 OR 3 VIEWS (06/16/2010 10:18 AM EDT) Anatomical Region Laterality Modality L-spine N/A Radiographic Dimple ging 06/16/2010 10:1 8 AM EDT Impressions 06/16/2010 5:28 PM EDT IMPRESSION: ?? 1. Unremarkable lumbar spine. Narrative 06/16/2010 5:28 PM EDT EXAMINATION: TWO VIEWS OF THE LUMBAR SPINE. DATE OF EXAM: 06/16/10. INDICATION: Right buttock pain. COMPARISON: MR 06/09/10. FINDINGS: Minimal endplate spurring is noted. Vertebral body heights are intact. Disk spaces are intact; however, the disk spaces are not clearly delineated on the upper lumbar spine and lower thoracic spine due to the beam alignment. IVC filter is noted. ?? Procedure Note Brennan Peter MD - 06/16/2010 EXAMINATION: TWO VIEWS OF THE LUMBAR SPINE. DATE OF EXAM: 06/16/10. INDICATION: Right buttock pain. COMPARISON: MR 06/09/10. FINDINGS: Minimal endplate spurring is noted. Vertebral body heights are intact. Disk spaces are intact; however, the disk spaces are not clearly delineated on the upper lumbar spine and lower thoracic spine due to thebeam alignment. IVC filter is noted. IMPRESSION IMPRESSION: 1. Unremarkable lumbar spine. Fannie C June-Marker STRAP MACHINE OPERATOR IMG DX ORDERA BLES documented in this encounter Visit Diagnoses Not on filedocumented in this encounter Care Teams Stock Digger Relationship Specialty Start Date End Date Nakul Ye MD [address] [place] [address] PCP - General 02/09/10 04/01/15 documented as of this encounter
--- OUTSIDE RECORDS SUMMARY | 2023-12-05 14:54 | XMS_ITS | Encounter Summary ---
[place] [address] Care Team Providers Care Camp Director Name Role Phone Nakul Ye MD Primary Care Provider [phone] Reason for Visit * Reason Onset Date Comments Medication Refill 09/21/2010 Encounter Details Date Type Department Care Team (Late st Contact Info) Description 09/21/2010 Refill [place] [address] Jovan Steiner Jr., MD [facility] [place] [address] Pain (Primary Dx) Social History Tobacco Use [...] pain documented in this encounter Care Teams Camp Director Relationship Specialty Start Date End Date Nakul Ye MD [address] [place] [address] PCP - General 02/09/10 04/01/15 documented as of this encounter
--- OUTSIDE RECORDS SUMMARY | 2023-12-05 14:54 | XMS_ITS | Encounter Summary ---
Author Organization [facility] Address [address] [place] [address] Care Team Providers Care Bonbon Dipper Name Role Phone Judie Potter MD Primary Care Provider [phone] Reason for Visit * Reason Onset Date Comments Referral Request 10/22/2020 Encounter Details Date Type Department Care Team (Late st Contact Info) Description 10/22/2020 Telephone [facility] Endocrinology - [address] [address] Lobo Bonner MD [address] [place] [address] Referral Request Social History Tobacco Use Types Packs/Day Years [...] encounter Miscellaneous Notes * Telephone Encounter - Alondra Parks RN - 10/22/2020 1047 EDT Call to: Jennifer Zapata voicemail relaying that GI would make this referral if they are recommending it. Instructed to call back with any questions. ALONDRA PARKS RN 10/22/2020 10:47 * Telephone Encounter - Marycarmen Sprague - 10/22/2020 1033 EDT Patient calling to request a new referral be sent to [facility]. She stated that GI recommended seeing them prior to an appt with GI. Please call patient with any questions documented in this encounter Plan of Treatment Not on file documented as of this encounter Visit Diagnoses Not on filedocumented in this encounter Care Teams Bonbon Dipper Relationship Specialty Start Date End Date Judie Potter MD [address] [place] [address] PCP - General 09/13/19 documented as of this encounter
--- OUTSIDE RECORDS SUMMARY | 2023-12-05 14:54 | XMS_ITS | Encounter Summary ---
[place] [address] Care Team Providers Care Account Services Manager Name Role Phone Lorene Aldrich MD Primary Care Provider Encounter Details Date Type Department Care Team (Latest Contact Info) Description 06/12/2015 9:00 AM EDT - 06/12/2015 11:59 PM EDT Hospital Encounter [place] [address] Chronic obstructive pulmonary disease, unspecified COPD type [...] mg. 0 06/02/2015 predniSONE (DELTASONE) 10 mg Tablet 0 06/08/2015 [...] 06/08/2010 10/19/2015 documented as of this encounter Procedure Notes * Tommie Reynolds MD - 06/15/2015 1:37 AM EDTAssociated Order(s): PULMONARY FUNCTION TEST FVC within normal limits. FEV1, FEV1/FVC are low. Diffusing capacity normal. IMPRESSION: Obstructive lung disease. documented in this encounter Plan of Treatment Not on file documented as of this encounter Procedures Procedure Name Priority Date/Time Associated Diagnosis Comments COMMON PULMONARY FUNCTION TEST Routine 06/15/2015 1:38 AM EDT Chronic obstructive pulmonary disease, unspecified COPD type [...] type documented in this encounter Care Teams Account Services Manager Relationship Specialty Start Date End Date Lorene Aldrich MD [address] [place] [address] PCP - General Family Medicine 06/12/15 documented as of this encounter
--- OUTSIDE RECORDS SUMMARY | 2023-12-05 14:54 | XMS_ITS | Encounter Summary ---
Author Organization [facility] Address [address] [place] [address] Care Team Providers Care Head Concierge Name Role Phone Judie Potter MD Primary Care Provider [phone] Reason for Visit * Reason Onset Date Comments Results 12/04/2019 looking for labs done late October Encounter Details Date Type Department Care Team (Late Contact Info) Description 12/04/2019 Telephone [facility] - [address] [address] Lobo Bonner MD [address] [place] [address] Results (looking for labs done late October ) Social History Tobacco Use Types Packs/Day Years [...] encounter Miscellaneous Notes * Telephone Encounter - Ba Carmichael - 12/04/2019 1125 EDT Patient is calling stating she had her labs done a few weeks ago and would like to get her results. She believes they are coming from the [facility]. Please advise. documented in this encounter Plan of Treatment Not on file documented as of this encounter Visit Diagnoses Not on filedocumented in this encounter Care Teams Head Concierge Relationship Specialty Start Date End Date Judie Potter MD [address] [place] [address] PCP - General 09/13/19 documented as of this encounter
--- OUTSIDE RECORDS SUMMARY | 2023-12-05 14:54 | XMS_ITS | Encounter Summary ---
[place] [address] Care Team Providers Care Specimen Technician Name Role Phone Nakul Ye MD Primary Care Provider [phone] Reason for Visit * Reason Onset Date Comments Medication Refill 02/22/2011 Encounter Details Date Type Department Care Team (Late st Contact Info) Description 02/22/2011 Refill [place] [address] Tommie Lopez MD [facility] [place] [address] Hypothyroidism Social History Tobacco Use Types Packs/Day [...] hypothyroidism documented in this encounter Care Teams Specimen Technician Relationship Specialty Start Date End Date Nakul Ye MD [address] [place] [address] PCP - General 02/09/10 04/01/15 documented as of this encounter
--- OUTSIDE RECORDS SUMMARY | 2023-12-05 14:54 | XMS_ITS | Encounter Summary ---
[place] [address] Care Team Providers Care Glost Placer Name Role Phone Nakul Ye MD Primary Care Provider [phone] Reason for Visit * Reason Onset Date Comments Medication Refill 12/06/2010 Encounter Details Date Type Department Care Team (Late st Contact Info) Description 12/06/2010 [place] [address] Jovan Steiner Jr., MD [facility] [place] [address] Pain (Primary Dx) Social History Tobacco Use Types Packs/Day Years Used Date Smoking Tobacco: Never Assessed Sex and Gender Information Value Date Recorded Sex Assigned at Female 11/19/2023 10:16 AM EDT Gender Identity Female 11/19/2023 10:16 AM EDT Sexual Orientation Not on file documented as of this encounter Miscellaneous Notes * Telephone Encounter - Patricia Galvez LPN - 12/06/2010 11:45 AM EDT Patient called back stating she is in a lot of pain and needs her pain medication at least enough to last her until her appointment this coming Monday. Rx Vicodin was called in Qty #30 with #0 refills advised to her stretch them out until her appointment. documented in this encounter Plan of Treatment Not on file documented as of this encounter Visit Diagnoses Diagnosis Pain- Primary Generalized pain documented in this encounter Care Teams Glost Placer Relationship Specialty Start Date End Date Nakul Ye MD [address] [place] [address] PCP - General 02/09/10 04/01/15 documented as of this encounter
--- OUTSIDE RECORDS SUMMARY | 2023-12-05 14:54 | XMS_ITS | Encounter Summary ---
[place] [address] Care Team Providers Care Laundry Superintendent Name Role Phone Nakul Ye MD Primary Care Provider [phone] Reason for Visit * Reason Onset Date Comments Medication Refill 08/06/2010 Encounter Details Date Type Department Care Team (Late st Contact Info) Description 08/06/2010 Ref[place] [address] Jovan Steiner Jr., MD [facility] [place] [address] Pain; VANNESSA (total hip arthroplasty) Social History Tobacco Use Types Packs/Day Years Used Date Smoking Tobacco: Never Assessed Sex and Gender Information Value Date Recorded Sex Assigned at Female 11/19/2023 10:16 AM EDT Gender Identity Female 11/19/2023 10:16 AM EDT Sexual Orientation Not on file documented as of this encounter Plan of Treatment Not on file documented as of this encounter Visit Diagnoses Diagnosis Pain Generalized pain VANNESSA (total hip arthroplasty) Hip joint replacement by other means documented in this encounter Care Teams Laundry Superintendent Relationship Specialty Start Date End Date Nakul Ye MD [address] [place] [address] PCP - General 02/09/10 04/01/15 documented as of this encounter
--- OUTSIDE RECORDS SUMMARY | 2023-12-05 14:54 | XMS_ITS | Encounter Summary ---
[place] [address] Care Team Providers Care Net Front End Developer Name Role Phone Nakul Ye MD Primary Care Provider [phone] Reason for Visit * Reason Onset Date Comments Medication Refill 10/08/2010 Encounter Details Date Type Department Care Team (Late st Contact Info) Description 10/08/2010 Ref[place] [address] Jovan Steiner Jr., MD [facility] [place] [address] Pain (Primary Dx) Social History Tobacco Use [...] pain documented in this encounter Care Teams Net Front End Developer Relationship Specialty Start Date End Date Nakul Ye MD [address] [place] [address] PCP - General 02/09/10 04/01/15 documented as of this encounter
--- OUTSIDE RECORDS SUMMARY | 2023-12-05 14:54 | XMS_ITS | Encounter Summary ---
[place] [address] Care Team Providers Care Fitness And Wellness Instructor Name Role Phone Nakul Ye MD Primary Care Provider [phone] Reason for Visit * Reason Onset Date Comments Medication Refill 11/08/2010 Encounter Details Date Type Department Care Team (Late st Contact Info) Description 11/08/2010 [place] [address] Jovan Steiner Jr., MD [facility] [place] [address] Pain (Primary Dx) Social History Tobacco Use [...] pain documented in this encounter Care Teams Fitness And Wellness Instructor Relationship Specialty Start Date End Date Nakul Ye MD [address] [place] [address] PCP - General 02/09/10 04/01/15 documented as of this encounter
--- OUTSIDE RECORDS SUMMARY | 2023-12-05 14:54 | XMS_ITS | Encounter Summary ---
[place] [address] Care Team Providers Care Product Tester Name Role Phone Nakul Ye MD Primary Care Provider [phone] Encounter Details Date Type Department Care Team (Late st Contact Info) Description 07/09/2010 [place] [address] Carlos Eduardo Mccormick PA [facility] [place] [address] Social History Tobacco Use Types Packs/Day Years [...] on filedocumented in this encounter Care Teams Product Tester Relationship Specialty Start Date End Date Nakul Ye MD [address] [place] [address] PCP - General 02/09/10 04/01/15 documented as of this encounter
--- OUTSIDE RECORDS SUMMARY | 2023-12-05 14:54 | XMS_ITS | Encounter Summary ---
[place] [address] Care Team Providers Care Food Broker Name Role Phone Nakul Ye MD Primary Care Provider [phone] Reason for Visit * Reason Onset Date Comments Medication Refill 12/03/2010 Encounter Details Date Type Department Care Team (Late st Contact Info) Description 12/03/2010 [place] [address] Jovan Steiner Jr., MD [facility] [place] [address] Social History Tobacco Use Types Packs/Day Years Used Date Smoking Tobacco: Never Assessed Sex and Gender Information Value Date Recorded Sex Assigned at Female 11/19/2023 10:16 AM EDT Gender Identity Female 11/19/2023 10:16 AM EDT Sexual Orientation Not on file documented as of this encounter Miscellaneous Notes * Telephone Encounter - Lizy Gary RN - 12/03/2010 12:19 PM EDT Patient has called for additional pain medications (Vicodin) she had been told at her last fill that she would have to stretch the prescription until her appointment with Dr. Steiner on the of this month. I called to reinforce this message with her but her phone was not accepting messages and she did not answer her phone. Attempted x's 2 today. documented in this encounter Plan of Treatment Not on file documented as of this encounter Visit Diagnoses Not on filedocumented in this encounter Care Teams Food Broker Relationship Specialty Start Date End Date Nakul Ye MD [address] [place] [address] PCP - General 02/09/10 04/01/15 documented as of this encounter
--- OUTSIDE RECORDS SUMMARY | 2023-12-05 14:54 | XMS_ITS | Encounter Summary ---
[place] [address] Care Team Providers Care Vp Purchasing Name Role Phone Nakul Ye MD Primary Care Provider [phone]- [phone] Reason for Visit * Reason Onset Date Comments Medication Refill 08/25/2010 Encounter Details Date Type Department Care Team (Late st Contact Info) Description 08/25/2010 [place] [address] Jovan Steiner Jr., MD [facility] [address] [place] [address] Pain (Primary Dx) Social History Tobacco Use [...] pain documented in this encounter Care Teams Vp Purchasing Relationship Specialty Start Date End Date Nakul Ye MD [address] [place] [address] PCP - General 02/09/10 04/01/15 documented as of this encounter
--- OUTSIDE RECORDS SUMMARY | 2023-12-05 14:54 | XMS_ITS | Encounter Summary ---
Author Organization [facility] [place] [place] [address] Care Team Providers Care Web Press Operator Apprentice Name Role Phone Nakul Ye MD Primary Care Provider [phone] Reason for Visit * Reason Onset Date Comments Medication Refill 11/16/2010 Encounter Details Date Type Department Care Team (Late st Contact Info) Description 11/16/2010 Ref[place] [address] Jovan Steiner Jr., MD [facility] [place] [address] Pain (Primary Dx) Social History Tobacco Use Types Packs/Day Years Used Date Smoking Tobacco: Never Assessed Sex and Gender Information Value Date Recorded Sex Assigned at Female 11/19/2023 10:16 AM EDT Gender Identity Female 11/19/2023 10:16 AM EDT Sexual Orientation Not on file documented as of this encounter Miscellaneous Notes * Telephone Encounter - Cesia Trevino RN - 11/17/2010 9:16 AM EDT Patient called for her refill of vicodin. Discussed with Dr. Steiner. Patient has not been seen sinceMarch. He approved one more refill and then blog writer advised patient that Dr. Steiner must see her for follow up. Patient was transferred to the medical unit secretary for appt. documented in this encounter Plan of Treatment Not on file documented as of this encounter Visit Diagnoses Diagnosis Pain- Primary Generalized pain documented in this encounter Care Teams Web Press Operator Apprentice Relationship Specialty Start Date End Date Nakul Ye MD [address] [place] [address] PCP - General 02/09/10 04/01/15 documented as of this encounter
--- OUTSIDE RECORDS SUMMARY | 2023-12-05 14:54 | XMS_ITS | Encounter Summary ---
[place] [address] Care Team Providers Care Repair Manager Name Role Phone Nakul Ye MD Primary Care Provider [phone] Reason for Visit * Reason Onset Date Comments Thyroid Problem 05/24/2011 Encounter Details Date Type Department Care Team (Late st Contact Info) Description 05/24/2011 Telephone [place] [address] Yue Peña LPN Thyroid Problem Social History Tobacco Use Types Packs/Day Years Used Date Smoking Tobacco: Never Assessed Sex and Gender Information Value Date Recorded Sex Assigned at Female 11/19/2023 10:16 AM EDT Gender Identity Female 11/19/2023 10:16 AM EDT Sexual Orientation Not on file documented as of this encounter Miscellaneous Notes * Telephone Encounter - Tommie Lopez MD - 05/26/2011 2:03 PM EST This is all very confusing. I received thyroid tests dated 04/2011 which showed a suppressed TSH buta normal free T4. Our records showed she was on 112 ug a day of thyroid hormone and I ordinarily would not have made a change. I do not know what labs her PCP based his decision upon, so really he/she should straighten this out. If it turns out that she had been on 0.056 mg a day in April, then she should return to this dose. The most important thing is for her to see me 2 months after she resumes thyroid meds so we can adjust it - she missed her last appointment when we could have straightened all this out. * Telephone Encounter - Jenna Jackson RN - 05/26/2011 9:35 AM EST This patient wants to restart her levothyroxine after being off it for a month. You had sent her a letter on 05/19 that she should continue her levothryroxine 112 mcg/day. She was on 56 mcg/day and wants to restart this med. She has gained weight (10 lbs) and feels she needs to beon this med. Can you write a script for the dose you decide she should be on and send it to [facility] in [place], [place]? Thank you. * Telephone Encounter - Yue Peña LPN - 05/24/2011 2:43 PM EST Patient calls had labs done by PCP on 04/26/11 who called her on 04/27/11 and had her stop levothyroxine all together and is to have labs done again in one month. Now has received letter from Dr Lopez that no change is needed. Patient states she was taking 0.056 mcg daily (1/2 tablet). Is quite upset has now gained ~10 lbs is asking what she should do regarding levothyroxine. documented in this encounter Plan of Treatment Not on file documented as of this encounter Visit Diagnoses Not on filedocumented in this encounter Care Teams Repair Manager Relationship Specialty Start Date End Date Nakul Ye MD [address] [place] [address] PCP - General 02/09/10 04/01/15 documented as of this encounter
--- OUTSIDE RECORDS SUMMARY | 2023-12-05 14:54 | XMS_ITS | Encounter Summary ---
Author Organization [facility] [place] [address] Care Team Providers Care Senior Enlisted Advisor Name Role Phone Nakul Ye MD Primary Care Provider [phone] Reason for Visit * Reason Onset Date Comments Thyroid Problem 02/22/2011 Encounter Details Date Type Department Care Team (Late st Contact Info) Description 02/22/2011 Telephone [place] [address] Tommie Lopez MD [facility] [place] [address] Thyroid Problem Social History Tobacco Use Types Packs/Day Years Used Date Smoking Tobacco: Never Assessed Sex and Gender Information Value Date Recorded Sex Assigned at Female 11/19/2023 10:16 AM EDT Gender Identity Female 11/19/2023 10:16 AM EDT Sexual Orientation Not on file documented as of this encounter Miscellaneous Notes * Telephone Encounter - Yue Peña LPN - 02/22/2011 9:55 AM EST Patient calls pharmacy has not received Rx she had asked to be done. Patient was told that she has not been seen since 07/2009. after appointment scheduled for followup will do Rx for enough medication to get her to appointment with Dr Lopez. Patient agrees with plan of care taking levothyroxine half of 112mcg tablet per day. Ask that Rx goto [facility] in [place]. Call transferred to accredited legal secretary. Appointment 2/29/12 scheduled. documented in this encounter Plan of Treatment Not on file documented as of this encounter Visit Diagnoses Not on filedocumented in this encounter Care Teams Senior Enlisted Advisor Relationship Specialty Start Date End Date Nakul Ye MD [address] [place] [address] PCP - General 02/09/10 04/01/15 documented as of this encounter
--- OUTSIDE RECORDS SUMMARY | 2023-12-05 14:54 | XMS_ITS | Encounter Summary ---
[place] [address] Care Team Providers Care Knitting Machine Operator Helper Name Role Phone Nakul Ye MD Primary Care Provider [phone] Reason for Visit * Reason Onset Date Comments Medication Refill 07/28/2010 Encounter Details Date Type Department Care Team (Late st Contact Info) Description 07/28/2010 Ref[place] [address] Jovan Steiner Jr., MD [facility] [place] [address] Pain (Primary Dx) Social History Tobacco Use [...] pain documented in this encounter Care Teams Knitting Machine Operator Helper Relationship Specialty Start Date End Date Nakul Ye MD [address] [place] [address] PCP - General 02/09/10 04/01/15 documented as of this encounter
--- OUTSIDE RECORDS SUMMARY | 2023-12-05 14:54 | XMS_ITS | Encounter Summary ---
Author Organization [facility] Address [facility] [place] [address] Care Team Providers Care Server Programmer Name Role Phone Nakul Ye MD Primary Care Provider [phone]- [phone] Encounter Details Date Type Department Care Team (Late st Contact Info) Description 02/14/2015 - 02/14/2015 11:59 PM EST Hospital Encounter Radiology Library at [facility] [place] [address] [facility] Dis[facility] Disposition: Home Social History Tobacco Use Types Packs/Day Years Used Date Smoking Tobacco: Never Assessed Sex and Gender Information Value Date Recorded Sex Assigned at Female 11/19/2023 10:16 AM EDT Gender Identity Female 11/19/2023 10:16 AM EDT Sexual Orientation Not on file documented as of this encounter Medications at Time of Discharge Medication Sig Dispensed Refills Start Date End Date levothyroxine (SYNTHROID) 112 mcg tabletIndications:Hypot hyroidism Take by mouth daily. One half tablet [...] Associated Diagnosis Comments FILM LIBRARY STORAGE ONLY DX CHEST Routine 02/14/2015 12:00 AM EST Pain documented in this encounter Results * Film Library- Storage only DX Chest (02/14/2015 12:00 AM EST) Narrative RAD - 06/06/2015 4:45 PM EDT See PACS for result report. Dr Mario [facility] FILM LIBRARY ORD ERABLES [place], [place] documented in this encounter Visit Diagnoses Diagnosis Pain Generalized pain documented in this encounter Care Teams Server Programmer Relationship Specialty Start Date End Date Nakul Ye MD [address] [place] [address] PCP - General 02/09/10 04/01/15 documented as of this encounter
--- OUTSIDE RECORDS SUMMARY | 2023-12-05 14:54 | XMS_ITS | Encounter Summary ---
Author Organization [facility] [place] [address] Care Team Providers Care Installation Superintendent Name Role Phone Lorene Aldrich MD Primary Care Provider Encounter Details Date Type Department Care Team (Late st Contact Info) Description 06/19/2015 Orders [place] [address] Marshall Coughlin MD [facility] [place] [address] Moderate persistent asthma with exacerbation Social History [...] exacerbation documented in this encounter Care Teams Installation Superintendent Relationship Specialty Start Date End Date Lorene Aldrich MD [address] [place] [address] PCP - General Family Medicine 06/12/15 documented as of this encounter
--- OUTSIDE RECORDS SUMMARY | 2023-12-05 14:54 | XMS_ITS | Encounter Summary ---
[place] [address] Care Team Providers Care Loss Prevention Manager Name Role Phone Nakul Ye MD Primary Care Provider [phone]- [phone] Reason for Visit * Reason Onset Date Comments Other 04/27/2011 Encounter Details Date Type Department Care Team (Late st Contact Info) Description 04/27/2011 Telephone [place] [address] Jenna Jackson Stephanie [facility] [place] [address] Other Social History Tobacco Use Types Packs/Day Years Used Date Smoking Tobacco: Never Assessed Sex and Gender Information Value Date Recorded Sex Assigned at Female 11/19/2023 10:16 AM EDT Gender Identity Female 11/19/2023 10:16 AM EDT Sexual Orientation Not on file documented as of this encounter Miscellaneous Notes * Telephone Encounter - Jenna Jackson RN - 04/27/2011 2:45 PM EST Patient had a thyroid test at her PCP yesterday and was called by her PCP today and was told to stop her levothyroxine for 1 month due to a low result. (0.1) They will be faxing you the results. This was just to let you know the results. documented in this encounter Plan of Treatment Not on file documented as of this encounter Visit Diagnoses Not on filedocumented in this encounter Care Teams Loss Prevention Manager Relationship Specialty Start Date End Date Nakul Ye MD [address] [place] [address] PCP - General 02/09/10 04/01/15 documented as of this encounter
--- OUTSIDE RECORDS SUMMARY | 2023-12-05 14:54 | XMS_ITS | Encounter Summary ---
[place] [address] Care Team Providers Care Diesel Instructor Name Role Phone Nakul Ye MD Primary Care Provider [phone] Reason for Visit * Reason Onset Date Comments Medication Refill 12/06/2010 Encounter Details Date Type Department Care Team (Late st Contact Info) Description 12/06/2010 [place] [address] Jovan Steiner Jr., MD [facility] DR [place] [address] Social History Tobacco Use Types Packs/Day Years Used Date Smoking Tobacco: Never Assessed Sex and Gender Information Value Date Recorded Sex Assigned at Female 11/19/2023 10:16 AM EDT Gender Identity Female 11/19/2023 10:16 AM EDT Sexual Orientation Not on file documented as of this encounter Miscellaneous Notes * Telephone Encounter - Patricia Galvez LPN - 12/06/2010 11:00 AM EDT Patient called requesting refill of her Vicodin, called her home number and left a message stating cannot refill RX until she comes to her appointment with Dr Steiner this Monday12/10/10 where they candiscuss her pain management future. documented in this encounter Plan of Treatment Not on file documented as of this encounter Visit Diagnoses Not on filedocumented in this encounter Care Teams Diesel Instructor Relationship Specialty Start Date End Date Nakul Ye MD [address] [place] [address] PCP - General 02/09/10 04/01/15 documented as of this encounter
--- OUTSIDE RECORDS SUMMARY | 2023-12-05 14:54 | XMS_ITS | Encounter Summary ---
[place] [address] Care Team Providers Care Concession Worker Name Role Phone Nakul Ye MD Primary Care Provider [phone]- [phone] Reason for Visit * Reason Onset Date Comments Medication Refill 08/23/2011 Levothyroxine, out of med Encounter Details Date Type Department Care Team (Late st Contact Info) Description 08/23/2011 [place] [address] Tommie Lopez MD [facility] [place] [address] Hypothyroidism Social History Tobacco Use Types Packs/Day [...] hypothyroidism documented in this encounter Care Teams Concession Worker Relationship Specialty Start Date End Date Nakul Ye MD [address] [place] [address] PCP - General 02/09/10 04/01/15 documented as of this encounter
--- OUTSIDE RECORDS SUMMARY | 2023-12-05 14:54 | XMS_ITS | Encounter Summary ---
[place] [address] Care Team Providers Care Technical Staff Engineer Name Role Phone Nakul Ye MD Primary Care Provider [phone]- [phone] Reason for Visit * Reason Onset Date Comments Medication Refill 07/19/2010 Encounter Details Date Type Department Care Team (Late st Contact Info) Description 07/19/2010 [place] [address] Jovan Steiner Jr., MD [facility] [place] [address] Pain (Primary Dx) Social History Tobacco Use [...] pain documented in this encounter Care Teams Technical Staff Engineer Relationship Specialty Start Date End Date Nakul Ye MD [address] [place] [address] PCP - General 02/09/10 04/01/15 documented as of this encounter
--- OUTSIDE RECORDS SUMMARY | 2023-12-05 14:54 | XMS_ITS | Encounter Summary ---
[place] [address] Care Team Providers Care Group Activities Aide Name Role Phone Nakul Ye MD Primary Care Provider [phone]- [phone] Encounter Details Date Type Department Care Team (Late st Contact Info) Description 06/16/2010 10:40 AM EDT Follow-[place] [address] aFnnie Weathers APRN [facility] [address] Discharge Disposition: Home Social History Tobacco Use [...] on filedocumented in this encounter Care Teams Group Activities Aide Relationship Specialty Start Date End Date Nakul Ye MD [address] [place] [address] PCP - General 02/09/10 04/01/15 documented as of this encounter
--- OUTSIDE RECORDS SUMMARY | 2023-12-05 14:54 | XMS_ITS | Encounter Summary ---
Author Organization [place] [id number] Care Team Providers Care Industrial Education Teacher Name Role Phone Nakul Ye MD Primary Care Provider Encounter Details Date Type Department Care Team (Late st Contact Info) Description 06/16/2010 10:00 AM EDT [place] [address] Social History Tobacco Use Types Packs/Day Years [...] on filedocumented in this encounter Care Teams Industrial Education Teacher Relationship Specialty Start Date End Date Nakul Ye MD [address] [place] [address] PCP - General 02/09/10 04/01/15 documented as of this encounter
--- OUTSIDE RECORDS SUMMARY | 2023-12-05 14:54 | XMS_ITS | Encounter Summary ---
Author Organization [facility] Address [facility] [place] [address] Care Team Providers Care Hedge Fund Manager Name Role Phone Nakul Ye MD Primary Care Provider [phone]- [phone] Encounter Details Date Type Department Care Team (Late st Contact Info) Description 03/15/2015 - 03/15/2015 11:59 PM EST Hospital Encounter Radiology Library at [facility] [place] [address] [facility] Disposition: Home Social History [...] FILM LIBRARY STORAGE ONLY DX CHEST Routine 03/15/2015 12:00 AM EST Pain documented in this encounter Results * Film Library- Storage only DX Chest (03/15/2015 12:00 AM EST) Narrative RAD - 06/06/2015 4:46 PM EDT See PACS for result report. Dr Mario [facility] IM FILM LIBRARY ORD ERABLES [place], [place] documented in this encounter Visit Diagnoses Diagnosis Pain Generalized pain documented in this encounter Care Teams Hedge Fund Manager Relationship Specialty Start Date End Date Nakul Ye MD [address] [place] [address] PCP - General 02/09/10 04/01/15 documented as of this encounter
--- OUTSIDE RECORDS SUMMARY | 2023-12-05 14:54 | XMS_ITS | Encounter Summary ---
[place] [address] Care Team Providers Care Benefits Advisor Name Role Phone Nakul Ye MD Primary Care Provider [phone] Reason for Visit * Reason Onset Date Comments Medication Refill 11/25/2010 Encounter Details Date Type Department Care Team (Late st Contact Info) Description 11/25/2010 [place] [address] Jovan Steiner Jr., MD [facility] DR [place] [address] Pain (Primary Dx) Social History Tobacco Use Types Packs/Day Years Used Date Smoking Tobacco: Never Assessed Sex and Gender Information Value Date Recorded Sex Assigned at Female 11/19/2023 10:16 AM EDT Gender Identity Female 11/19/2023 10:16 AM EDT Sexual Orientation Not on file documented as of this encounter Miscellaneous Notes * Telephone Encounter - Patricia Galvez LPN - 11/25/2010 12:17 PM EDT Patient called for her refill of her Vicodin. An appointment has been made for her to see Dr Steiner on 12/10/10, RX was refilled with consent from Dr Steiner. documented in this encounter Plan of Treatment Not on file documented as of this encounter Visit Diagnoses Diagnosis Pain- Primary Generalized pain documented in this encounter Care Teams Benefits Advisor Relationship Specialty Start Date End Date Nakul Ye MD [address] [place] [address] PCP - General 02/09/10 04/01/15 documented as of this encounter
--- OUTSIDE RECORDS SUMMARY | 2023-12-05 14:55 | XMS_ITS | Encounter Summary ---
Author Organization [facility] Address [address] [place] [address] Care Team Providers Care Animal Husbandry Technician Name Role Phone Unavailable Primary Care Provider Unavailabl e Encounter Details Date Type Department Care Team (Late st Contact Info) Description 2002 13:02 EDT Hospital Encounter [facility] - Other [address] [place] [address] Dave Berrios MD [address] [facility], [address] [place] [phone] Social History Tobacco Use Types Packs/Day Years [...] 12:13 EDT documented as of this encounter Plan of Treatment Not on file documented as of this encounter Visit Diagnoses Not on filedocumented in this encounter
--- OUTSIDE RECORDS SUMMARY | 2023-12-05 14:55 | XMS_ITS | Encounter Summary ---
Author Organization [facility] Address [address] [place] [address] Care Team Providers Care Metal Turner Name Role Phone Unavailable Primary Care Provider Unavailabl e Encounter Details Date Type Department Care Team (Late st Contact Info) Description 01/27/2003 15:24 EST Hospital Encounter [facility] - Other [address] [place] [address] Susanna Tam MD [address] [place] [address] Social History Tobacco Use Types Packs/Day Years [...] Procedure Name Priority Date/Time Associated Diagnosis Comments CYTOPATHOLOGY Routine 01/27/2003 0:00 EST documented in this encounter Results * CYTOPATHOLOGY (01/27/2003 0:00 EST) Pathology Report: CYTOPATHOLOGY REPORT Reports generated via electronic interface contain original data; however they are lacking the format of the original report. Caution should be taken when reading/interpreti ng unformatted reports. Name: ? CHANG MARINELLI ? Accession #: ? [id number] : ? 1975 (Age: 27) ??F ?Collect Date: ? 01/27/2003 Location: ? [facility] ? Receive Date: ? 01/28/2003 Provider: ?SUSANNA TAM MD Copy to: ? Specimen/Source: ?ThinPrep Pap Test, Cervix Last Menstrual Period: ? 01/19/03 Menstrual/Pregnanc y Status: ? Post Hormonal/Contracep tive Status: ? Tubal ligation: S/p BTL Other: ? HPVA - HPV testing requested if ASC-US on the current ThinPrep Pap test. ? SPECIMEN ADEQUACY ? Satisfactory for Evaluation - transformation zone component present GENERAL CATEGORIZATION ? Negative for Intraepithelial Lesion or Malignancy INTERPRETATION ? Shift in benjamin present suggestive of bacterial vaginosis. ? Document reviewed and electronically signed by: ? MARY KATE Buckley(ASCP) ? Report Date: ??02/04/2003 07:54 End of Report [facility] 01/27/2003 01/28/2003 Susanna Tam MD PATHOLOGY [facility] [address] [place] [address] documented in this encounter Visit Diagnoses Not on filedocumented in this encounter
--- OUTSIDE RECORDS SUMMARY | 2023-12-05 14:55 | XMS_ITS | Encounter Summary ---
Author Organization [facility] Address [address] [place] [address] Care Team Providers Care Senior Engineering Associate Name Role Phone Nakul Ye MD Primary Care Provider Un available Encounter Details Date Type Department Care Team (Late st Contact Info) Description 01/22/2004 Results Only [facility] conversion [address] [place] [address] Unknown, Provider, Social History Tobacco Use Types Packs/Day Years Used Date Smoking Tobacco: Never Assessed Sex and Gender Information Value Date Recorded Sex Assigned at Not on file Gender Identity Female 09/13/2019 11:59 EDT Sexual Orientation Not on file documented as of this encounter Plan of Treatment Not on file documented as of this encounter Procedures Procedure Name Priority Date/Time Associated Diagnosis Comments HPV DETECTION, HIGH RISK TYPES Routine 01/22/2004 14:31 EST PROLACTIN Routine 01/22/2004 10:52 EST T4 FREE Routine 01/22/2004 10:52 EST FSH Routine 01/22/2004 10:52 EST CYTOPATHOLOGY Routine 01/22/2004 0:00 EST documented in this encounter Results * HUMAN PAPILLOMA VIRUS DNA TEST (01/22/2004 14:31 EST) Specimen Description Cervix [facility] Result Cancelled by Physician/Abdifatah sing Unit Per [facility] Report Status Final [id number] [facility] 01/22/2004 14:3 1 EST 01/22/2004 21:57 EST Provider Unknown MICROBIOLOGY - GENER AL ORDERABLES Performing Organization Address [facility] Co de Phone Number [facility] [address] [place] [address] * PROLACTIN (01/22/2004 10:52 EST) Prolactin 3.6 ng/ml [facility] Comment: Non-: 2.8-29.2 : 9.7-208.5 Post Menopausal: 1.8-20.3 01/22/2004 10:5 2 EST 01/22/2004 21:56 EST Provider Unknown CHEMISTRY & BLOOD GA S ORDERABLES Performing Organization Address [facility] de Phone Number [facility] [address] [place] [address] * T4 FREE (01/22/2004 10:52 EST) Free T4 1.2 0.8 - 1.8 ng/dl [facility] 01/22/2004 10:5 2 EST 01/22/2004 21:56 EST Provider Unknown CHEMISTRY & BLOOD GA S ORDERABLES Performing Organization Address [facility] de Phone Number [facility] [address] [place] [address] * FSH (01/22/2004 10:52 EST) FSH 5.9 mIU/ml [facility] Comment: Follicular: 2-11 Mid-Cycle Peak: 3.4-35 Luteal: 1-9 Postmenopausal: 25-120 01/22/2004 10:5 2 EST 01/22/2004 21:56 EST Provider Unknown CHEMISTRY & BLOOD GA S ORDERABLES [facility] [address] [place] [address] * CYTOPATHOLOGY (01/22/2004 0:00 EST) Pathology Report: CYTOPATHOLOGY REPORT Reports generated via electronic interface contain original data; however they are lacking the format of the original report. Caution should be taken when reading/interpreti ng unformatted reports. Name: ? JENNIFER MARINELLI ? Accession #: ? [id number] : ? 1975 (Age: 28) ??F ?Collect Date: ? 01/22/2004 Location: ? [facility] ? Receive Date: ? 01/23/2004 Provider: ?SUSANNA TAM MD Copy to: ? Specimen/Source: ?ThinPrep Pap Test, Cervix/Endocervix Last Menstrual Period: ? 08/19/03 Other: ? HPVA - HPV testing requested if ASC-US on the current ThinPrep Pap test. ? SPECIMEN ADEQUACY ? Satisfactory for Evaluation - transformation zone component present GENERAL CATEGORIZATION ? Negative for Intraepithelial Lesion or Malignancy INTERPRETATION ? Shift in benjamin present suggestive of bacterial vaginosis. ? Document reviewed and electronically signed by: ? JESSIE Pennington(ASCP) ? Report Date: ??01/28/2004 09:42 End of Report [facility] 01/22/2004 01/23/2004 Susanna Tam MD PATHOLOGY [facility] Performing Organization Address City/State/[facility] Co de Phone Number [facility] [address] documented in this encounter Visit Diagnoses Not on filedocumented in this encounter Care Teams Senior Engineering Associate Relationship Specialty Start Date End Date Nakul Ye MD PCP - General 09/08/08 2 documented as of this encounter
--- OUTSIDE RECORDS SUMMARY | 2023-12-05 14:55 | XMS_ITS | Encounter Summary ---
Author Organization [facility] Address [address] [place] [address] Care Team Providers Care Vendor Specialist Name Role Phone Reggie Camp MD Primary Care Provider [phone] Encounter Details Date Type Department Care Team (Late st Contact Info) Description 04/29/2010 11:54 EST - 04/29/2010 23:59 EST Hospital Encounter [facility] - [address] [address] Shayy Lee MD [address] [place] [address] Discharge Disposition: Auto Discharge Social History Tobacco Use Types Packs/Day Years Used Date Smoking Tobacco: Never Assessed Sex and Gender Information Value Date Recorded Sex Assigned at Not on file Gender Identity Female 09/13/2019 11:59 EDT Sexual Orientation Not on file documented as of this encounter Discharge Disposition Disposition Code Departure Means Destination Auto Discharge Home documented in this encounter Plan of Treatment Not on file documented as of this encounter Visit Diagnoses Not on filedocumented in this encounter Care Teams Vendor Specialist Relationship Specialty Start Date End Date Reggie Camp MD [address] [facility] [address] [place], [place] [address] PCP - General 04/29/10 09/12/19 documented as of this encounter
--- OUTSIDE RECORDS SUMMARY | 2023-12-05 14:55 | XMS_ITS | Encounter Summary ---
Author Organization [facility] Address [address] [place] [address] Care Team Providers Care Hospital Unit Clerk Name Role Phone Reggie Camp MD Primary Care Provider [phone] Encounter Details Date Type Department Care Team (Late st Contact Info) Description 02/09/2011 Abstract [facility] - [address] [address] Lei Loredo PA-C [address] [facility] [place] [address] Social History Tobacco Use Types Packs/Day Years Used Date Smoking Tobacco: Every Day Cigarettes 1 20 Alcohol Use Standard Drinks/Week Comments Yes 0 [...] filedocumented in this encounter Care Teams Hospital Unit Clerk Relationship Specialty Start Date End Date Reggie Camp MD [address] [place] [address] PCP - General 04/29/10 09/12/19 documented as of this encounter
--- OUTSIDE RECORDS SUMMARY | 2023-12-05 14:55 | XMS_ITS | Encounter Summary ---
Author Organization [facility] Address [address] [place] [address] Care Team Providers Care Joiner Apprentice Name Role Phone Judie Potter MD Primary Care Provider [phone] Encounter Details Date Type Department Care Team (Latest Contact Info) Description 11/04/2019 Travel Social History Tobacco Use Types Packs/Day [...] on filedocumented in this encounter Care Teams Joiner Apprentice Relationship Specialty Start Date End Date Judie Potter MD [address] [place] [phone] PCP - General 09/13/19 documented as of this encounter
--- OUTSIDE RECORDS SUMMARY | 2023-12-05 14:55 | XMS_ITS | Encounter Summary ---
Author Organization [facility] Address [address] [place] [address] Care Team Providers Care Rn Tele Name Role Phone Unavailable Primary Care Provider Unavailabl e Encounter Details Date Type Department Care Team (Late st Contact Info) Description 08/25/1999 13:02 EDT Hospital Encounter [address] [address] Sommer Jain MD [address] [facility], [address] [place] [phone] Social History Tobacco Use Types Packs/Day Years [...]
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
--- OUTSIDE RECORDS SUMMARY | 2023-12-05 14:55 | XMS_ITS | Encounter Summary ---
Author Organization [facility] Address [address] [place] [address] Care Team Providers Care Investment Underwriter Name Role Phone Unavailable Primary Care Provider Unavailabl e Encounter Details Date Type Department Care Team (Latest Contact Info) Description 11/15/2000 9:41 EDT - 11/15/2000 11:59 EDT Hospital Encounter [facility] [address] [place] [address] Christina Smith MD Discharge Disposition: Auto Discharge Social History Tobacco Use Types Packs/Day Years Used Date Smoking Tobacco: Never Assessed Sex and Gender Information Value Date Recorded Sex Assigned at Not on file Gender Identity Female 09/13/2019 11:59 EDT Sexual Orientation Not on file documented as of this encounter Discharge Disposition Disposition Code Departure Means Destination Auto Discharge documented in this encounter Plan of Treatment Not on file documented as of this encounter Procedures Procedure Name Priority Date/Time Associated Diagnosis Comments QUANT BETA HCG, Routine 11/15/2000 11:29 EDT documented in this encounter Results * HCG (11/15/2000 11:29 EDT) HCG 95327 mIU/ml [facility] Comment: <4 = Negative 4-10 = Borderline, recommend repeat. 11/15/2000 11:2 9 EDT 11/15/2000 11:40 EDT Reggie Chaudhary MD CHEMISTRY & BLOOD GA S ORDERABLES [facility] [address] [place] [address] documented in this encounter Visit Diagnoses Not on filedocumented in this encounter
--- OUTSIDE RECORDS SUMMARY | 2023-12-05 14:55 | XMS_ITS | Encounter Summary ---
Author Organization [facility] Address [address] [place] [id number] Care Team Providers Care Hard Tile Setter Apprentice Name Role Phone Nakul Ye MD Primary Care Provider Un available Encounter Details Date Type Department Care Team (Late st Contact Info) Description 09/24/2008 Orders Only [facility] Services - [facility] ([facility]) [address] [place] [address] Adi Hebert, PRODUCT/DEVICE TECHNOLOGIST [address] [place], [place] [id number] Social History Tobacco Use Types Packs/Day Years Used Date Smoking Tobacco: Never Assessed Sex and Gender Information Value Date Recorded Sex Assigned at Not on file Gender Identity Female 09/13/2019 11:59 EDT Sexual Orientation Not on file documented as of this encounter Plan of Treatment Not on file documented as of this encounter Procedures Procedure Name Priority Date/Time Associated Diagnosis Comments CYTOPATHOLOGY Routine 09/24/2008 0:00 EDT documented in this encounter Results * CYTOPATHOLOGY (09/24/2008 0:00 EDT) Pathology Report: CYTOPATHOLOGY REPORT ? Reports generated via electronic interface contain original data; ? however they are lacking the format of the original report. ? Caution should be taken when reading/interpreti ng unformatted reports. ? Name: ? CHANG MARINELLI ? Accession #: ? [id number] ? : ? 1975 (Age: 33) ??F ?Collect Date: ? 09/24/2008 ? Location: ? [facility] ? Receive Date: ? 09/26/2008 ? Provider: ?ADI HEBERT PRODUCT/DEVICE TECHNOLOGIST ? Copy to: ? Specimen/Source: ?Pap Test, Cervix/Endocervix, ThinPrep Imaging System ? with manual evaluation ? Last Menstrual Period: ? 2 weeks ago ? SPECIMEN ADEQUACY ? Satisfactory for Evaluation ? - transformation zone component present ? GENERAL CATEGORIZATION ? Negative for Intraepithelial Lesion or Malignancy ? INTERPRETATION ? Reactive cellular changes associated with inflammation present (includes ?? repair). ? Shift in benjamin present suggestive of bacterial vaginosis. ? Document reviewed and electronically signed by: ? JAHAIRA MOUNT MD ? Report Date: ??10/01/2008 12:01 ? End of Report ? [facility] 09/24/2008 09/26/2008 Adi Hebert PRODUCT/DEVICE TECHNOLOGIST PATHOLOGY ORDERAB LES [facility] [address] [place] [address] documented in this encounter Visit Diagnoses Not on filedocumented in this encounter Care Teams Hard Tile Setter Apprentice Relationship Specialty Start Date End Date Nakul Ye MD PCP - General 09/08/08 04/28/10 documented as of this encounter
--- OUTSIDE RECORDS SUMMARY | 2023-12-05 14:55 | XMS_ITS | Encounter Summary ---
Author Organization [facility] Address [address] [place] [address] Care Team Providers Care Sales Utility Representative Name Role Phone Judie Potter MD Primary Care Provider [phone] Reason for Referral * Radiology Services (Routine) - Authorization Not Required Specialty Diagnoses / Procedures Referred By Chris t Referred To Contact Diagnoses Family history of type 2 MEN Procedures US THYROID/NECK Lobo Bonner MD [address] [place] [address] Referral ID Status Reason Start Date Expiration Date Visits Requested Visits Authorized [id number] Authorization Not Required 11/04/2019 1 1 * Consult (Routine) - Closed Specialty Diagnoses / Procedures Referred By Chris lobo Referred To Contact Medical Biochemical Genetics / Pediatric Genetics Diagnoses Family history of type 2 MEN Lobo Bonner MD [address] [place] [address] [facility] [address] [place] [address] Referral ID Status Reason Start Date Expiration Date V isits Requested Visits Authorized [id number] Closed Specialty Services Required 11/04/2019 1 1 Question Answer Reason for Request: for RET mutation analysis - family Hx of MEN2A Reason for Visit * Reason Comments Hypothyroidism * Referral (Routine) - Closed Specialty Diagnoses / Procedures Referred By Contac t Referred To Contact Endocrinology Diagnoses Other specified hypothyroidism Lorene Aldrich MD [address] [facility] [address] [place] [address] Aileen Barrios MD PhD [address] [facility] [address] [place] [address] Referral ID Status Reason Start Date Expiration Date Visits Re quested Visits Authorized [id number] Closed 1 1 Encounter Details Date Type Department Care Team (Late st Contact Info) Description 11/04/2019 10:40 EDT Office Visit [facility] Endocrinology - [facility] [address] [place] [address] Lobo Bonner MD [address] [place] [address] Family history of type 2 MEN (Primary Dx) Social History Tobacco Use Types [...] 12:13 EDT documented as of this encounter Last Filed [...] Body Mass Index 35.33 11/04/2019 1044 EDT documented in this encounter Progress Notes * Lobo Bonner MD - 11/04/2019 1040 EDT 11/04/2019 NEW PATIENT PATIENT: Jennifer Jimenez CHIEF COMPLAINT Hypothyroidism HISTORY OF PRESENT ILLNESS Jennifer Jimenez is a very pleasant 44 y.o. female who presents with diagnosis of secondary hypothyroidism and a family history of MEN type IIa. HPI First appointment November 06, 2019 It is a stated in the referral that she was complaining of irregular bowel movements, constipation with a BM every 1 to 5 days, bloating after meals. She also reported that 2 of her aunts were diagnosed with multiple endocrine neoplasia type IIa a as well as a couple of cousins. One aunt has multiple endocrine aplasia type II a as well as his parents disease. Her TSH was 3.94 on September 05, 2019, T3and T4 were not checked. However, she takes levothyroxine 137 mcg daily The following history was gathered from the patient today: Jennifer has a history of Graves' disease diagnosed after when she was 23 years old. She underwent radioactive iodine ablation and became hypothyroid. She also has a history of longstanding constipation and she has struggled with it throughout her life. However, she has not been referred for evaluation to GI. Jennifer has 3 children is 1 of them with a different father: Kyler Cheema Arianna. Her mother, who I believe is the first patient with MEN type 2a of massive heart attack in her40s. Her mother had 3 sisters, Floresita (positive), Disha (positive, had MTC and Hirschsprung's disease, multiple GI issues ) and Piper (neg). Only Piper tested negative for MEN type 2a mutations. Olga's children: Etelvina, Sammy and Allan have declined testing. Floresita Karen (positive, had MTC) (followed by Dr. Barrios) was diagnosed with V804M RET mutation Floresita (positive, had MTC) had 2 daughters, Anaya (positive, total thyroidectomy, NO MTC, s/p thyroidectomy) and Alicia (neg, has thyroid nodules) Anaya had 2 sons, Rah (??) and Storm (??). She is not sure if both were tested but Rah's daughters have. Rah had 2 daughters, Keiry (positive, NO MTC, s/p thyroidectomy) and Marcial (negative) PAST HISTORY Past Medical History: Diagnosis Date ??? Arthritis ??? Asthma ??? Depression ??? Difficulty sleeping ??? Hypothyroid ??? PE (pulmonary embolism) Past Surgical History: Procedure Laterality Date ??? ANKLE FRACTURE SURGERY 2007 right ??? HIP SURGERY external fixation/AVN -replacement ??? JOINT REPLACEMENT right hip August 23 [facility] ??? THYROID SURGERY ??? TUBAL LIGATION 08.07.2002 No family history on file. Social History Tobacco Use ??? Smoking status: Current Every Day Smoker Packs/day: 1.00 Years: 20.00 Pack years: 20.00 ??? Smokeless tobacco: Never Used Substance Use Topics ??? Alcohol use: Yes ??? Drug use: Yes Types: Marijuana Comment: 4 days per week MEDICATIONS Current Outpatient Medications Medication Sig Dispense Refill ??? ACETAMINOPHEN (TYLENOL EXTRA STRENGTH ORAL) Take by mouth as needed. ??? ADVAIR HFA 230-21 mcg/actuation inhaler INL 2 PFS PO BID ??? albuterol 90 mcg/actuation inhaler INHALE 1 TO 2 PUFFS PO EVERY 4-6 HOUTS PRN FOR WHEEZING ??? cetirizine (ZYRTEC) 10 mg tablet Take 10 mg by mouth daily. ??? fluticasone propionate (FLONASE) 50 mcg/actuation nasal spray Instill 50 mcg into both nostrilsdaily. ??? IBUPROFEN ORAL Take 200 mg by mouth. Prn ??? levothyroxine (SYNTHROID) 137 mcg tablet Take 137 mcg by mouth daily. ??? montelukast (SINGULAIR) 10 mg tablet Take 10 mg by mouth daily. No current facility-administered medications for this visit. ALLERGIES Allergies Allergen Reactions ??? Latex, Natural Rubber Hives REVIEW OF SYSTEMS Constitutional: Positive for malaise/fatigue. Negative for weight loss. Cardiovascular: Positive for palpitations. Gastrointestinal: Positive for constipation. VITALS Vitals: 11/04/19 1044 BP: 135/75 Pulse: 77 Weight: 90.4 kg (199 lb 6.4 oz) Height: 160 cm (62.99) PHYSICAL EXAM Nursing note and vitals reviewed.Constitutional: She is oriented to person, place, and time. HENT: Head: Normocephalic and atraumatic. Mouth/Throat: No oropharyngeal exudate or posterior oropharyngeal erythema. Eyes: Pupils are equal, round, and reactive to light. Conjunctivae are normal. Neck: Normal range of motion. Neck supple. Cardiovascular: Normal rate. Pulmonary/Chest: Effort normal. No respiratory distress. Abdominal: Normal appearance. Musculoskeletal: Normal range of motion. General: No swelling, tenderness, deformity or signs of injury. Right lower leg: No edema. Left lower leg: No edema. Neurological: She is alert and oriented to person, place, and time. Skin: No bruising, no lesion and no rash noted. No erythema. No jaundice or pallor. Psychiatric: Her behavior is normal. Mood, judgment and thought content normal. ASSESSMENT ICD-10-CM ICD-9-CM 1. Family history of type 2 MEN Z83.41 V18.11 1. Family history of a MEN type 2a, V804M RET mutation This mutation has been found in at least 5 generations. Medullary thyroid carcinoma has been found on 1 generation, the siblings of the index case or the children of what I think was the index case. However, her mother of a heart attack in her 40s and we do not have an autopsy report. She may have had pheochromocytoma but there is no evidence of pheochromocytoma in any other family member orgeneration If found to be positive, I would recommend total thyroidectomy if she has thyroid nodules. PLAN See below Jennifer was seen today for hypothyroidism. Diagnoses and all orders for this visit: Family history of type 2 MEN - AMB CONS/FOLLOW UP GENETICS - US THYROID/NECK; Future - METANEPHRINES, PLASMA; Future - PTH INTACT; Future - COMPREHENSIVE METABOLIC PANEL (CMP); Future - AMB CONS/FOLLOW UP GASTROENTEROLOGY; Future - MISCELLANEOUS TEST, ARVADA; Future - CATECHOLAMINE FRACTIONATION, PLASMA, FREE; Future - CATECHOLAMINE FRACTIONATION, FREE, URINE 24HR; Future Other orders - fluticasone propionate (FLONASE) 50 mcg/actuation nasal spray; Instill 50 mcg into both nostrils daily. - cetirizine (ZYRTEC) 10 mg tablet; Take 10 mg by mouth daily. - montelukast (SINGULAIR) 10 mg tablet; Take 10 mg by mouth daily. - levothyroxine (SYNTHROID) 137 mcg tablet; Take 137 mcg by mouth daily. - ADVAIR HFA 230-21 mcg/actuation inhaler; INL 2 PFS PO BID - albuterol 90 mcg/actuation inhaler; INHALE 1 TO 2 PUFFS PO EVERY 4-6 HOUTS PRN FOR WHEEZING - Cancel: AMB CONS/FOLLOW UP GASTROENTEROLOGY; Future Lobo Plata MD 11/04/2019 12:19 I spent 60 minutes with patient [id number] encounter, more than 50% of time was spent counseling and performing a very detailed family 3 history. documented in this encounter Plan of Treatment Scheduled Orders Name Type Priority Associated Diagnoses Orde r Schedule US THYROID/NECK Imaging Routine Family History Of Type 2 Men Expected: 11/04/2019, Expires: 11/03/2020 Scheduled Referrals Name Type Priority Associated Diagnoses Orde r Schedule AMB CONS/FOLLOW UP GENETICS Outpatient Referral Routine Family History Of Type 2 Men Ordered: 11/04/2019 documented as of this encounter Results * CEA (11/04/2019 13:17 EDT) CEA 2.7 See Note ng/mL 11/04/2019 15:05 EDT [facility] Comment: % Distribution of CEA (ng/mL): ??0.0 - 2.5 in 98.2% of Nonsmokers and 87.3% of Smokers ??2.6 - 5 in 1.8% of Nonsmokers and 8% of Smokers ??5.1 - 10.1 in 4.7% of Smokers NOTE: Serum CEA concentration should not be interpeted as absolute evidence for the presence or absence of malignant disease. ?? Assayed on Siemens ADVIA Centaur XPT using chemiluminescent technology. ??Values obtained by different assay methods cannot be used interchangeably. Blood VENOUS BLOOD / Unknown Venipuncture / Unknown 11/04/2019 13:17 EDT 11/04/2019 14:01 EDT Lobo Plata MD CHEMISTRY & BLOOD GAS ORDERABLES Performing Organization Address City/[facility] Co de Phone Number [facility] [address] [place] [address] * CALCITONIN (11/04/2019 13:17 EDT) Calcitonin <5.0 <=7.6 pg/mL 11/06/2019 9:06 EDT [facility] Comment: ADDITIONAL INFORMATION The testing method is an electrochemiluminescence assay manufactured by [employer] and performed on the Tolu system. Values obtained with different assay methods or kits may be different and cannot be used interchangeably. Test results cannot be interpreted as absolute evidence for the presence or absence of malignant disease. Test Performed by: [facility] [employer] - [facility] [address] [id number] Mailroom Supervisor: Luis Felipe Gilmore M.D. Ph.D.; CLIA# [id number] Blood VENOUS BLOOD / Unknown Venipuncture / Unknown 11/04/2019 13:17 EDT 11/04/2019 13:22 EDT Lobo Plata MD CHEMISTRY & BLOOD GAS ORDERABLES Performing Organization Address [facility] de Phone Number [facility] [address] [place] [address] * CATECHOLAMINE FRACTIONATION, PLASMA, FREE (11/04/2019 13:17 EDT) Norepinephrine 299 pg/mL 11/07/2019 14:51 EDT [facility] Comment: REFERENCE VALUE 70-750 (Supine) 200-1700 (Standing) Epinephrine <25 pg/mL 11/07/2019 14:51 EDT [facility] Comment: REFERENCE VALUE <111 (Supine) <141 (Standing) Dopamine <25 pg/mL 11/07/2019 14:51 EDT [facility] Comment: REFERENCE VALUE <30 (no postural change) ADDITIONAL INFORMATION PLEASE NOTE: High/Low flagging is based on supine normal values. This test was developed and its performance characteristics determined by [facility] in a manner consistent with CLIA requirements. This test has not been cleared or approved by the U.S. Food and Drug Administration. Test Performed by: [facility] [address] [place] [address] Mailroom Supervisor: Luis Felipe Gilmore M.D. Ph.D.; CLIA# [id number] Blood VENOUS BLOOD / Unknown Venipuncture / Unknown 11/04/2019 13:17 EDT 11/04/2019 13:22 EDT Lobo Plata MD CHEMISTRY & BLOOD GAS ORDERABLES Performing Organization Address [facility]/State/ZIP Co de Phone Number [facility] [address] [place] [address] * MISCELLANEOUS TEST, ARVADA (11/04/2019 13:17 EDT) Pathologist [facility] Miscellaneous Test, Roxana SEE NOTE 11/15/2019 14:16 EDT [facility] Comment: Test ?Result ?Flag ??Unit ??RefValue RET Gene, Full Gene Analysis ??Result Summary ?Not Reported ?RET Gene, Full Gene Analysis was cancelled on 11/15/2019 at ?14:16; Per provider's request. Test canceled. Wrong test ?ordered. Test has been changed to Familial Mutation, ?Targeted Test (Randle Test ID FMTT). ?Result ?Not Reported ?RET Gene, Full Gene Analysis was cancelled on 11/15/2019 at ?14:16; Per provider's request. Test canceled. Wrong test ?ordered. Test has been changed to Familial Mutation, ?Targeted Test (Randle Test ID FMTT). ?Interpretation ?TNP ?RET Gene, Full Gene Analysis was cancelled on 11/15/2019 at ?14:16; Per provider's request. Test canceled. Wrong test ?ordered. Test has been changed to Familial Mutation, ?Targeted Test (Randle Test ID FMTT). ?Test Performed by: ?[facility] ?[address] [place] [address] ?Mailroom Supervisor: Luis Felipe Gilmore M.D. Ph.D.; [facility]# [id number] ??Additional Information ?Not Reported ?RET Gene, Full Gene Analysis was cancelled on 11/15/2019 at ?14:16; Per provider's request. Test canceled. Wrong test ?ordered. Test has been changed to Familial Mutation, ?Targeted Test (Randle Test ID FMTT). ?Specimen ?Not Reported ?RET Gene, Full Gene Analysis was cancelled on 11/15/2019 at ?14:16; Per provider's request. Test canceled. Wrong test ?ordered. Test has been changed to Familial Mutation, ?Targeted Test (Randle Test ID FMTT). ?Source ?Not Reported ?RET Gene, Full Gene Analysis was cancelled on 11/15/2019 at ?14:16; Per provider's request. Test canceled. Wrong test ?ordered. Test has been changed to Familial Mutation, ?Targeted Test (Randle Test ID FMTT). ?Released By ? Not Reported ?RET Gene, Full Gene Analysis was cancelled on 11/15/2019 at ?14:16; Per provider's request. Test canceled. Wrong test ?ordered. Test has been changed to Familial Mutation, ?Targeted Test (Roxana Test ID FMTT). ? Blood VENOUS BLOOD / Unknown Venipuncture / Unknown 11/04/2019 13:17 EDT 11/04/2019 13:42 EDT Lobo Plata MD CHEMISTRY & BLOOD GAS ORDERABLES [facility] [address] [place] [address] * COMPREHENSIVE METABOLIC PANEL (CMP) (11/04/2019 13:17 EDT) Sodium 140 136 - 145 mEq/L 11/04/2019 14:29 [facility] Potassium 4.4 3.5 - 5.0 mEq/L 11/04/2019 14:29 [facility] Chloride 107 96 - 110 mEq/L 11/04/2019 14:29 [facility] CO2 Total 25 22 - 32 mEq/L 11/04/2019 14:29 [facility] Glucose 89 70 - 100 mg/dL 11/04/2019 14:29 [facility] BUN 13 10 - 26 mg/dL 11/04/2019 14:29 [facility] Creatinine 0.68 0.52 - 1.04 mg/dL 11/04/2019 14:29 [facility] eGFR 108 >60 mL/min/1.7 3m2 11/04/2019 14:29 [facility] Comment:eGFR calculated jeanna g CKD-EPI equation for non- Americans. Multiply eGFR by 1.16 for patients. Total Protein 6.7 6.3 - 8.2 g/dL 11/04/2019 14:29 [facility] Albumin 3.9 3.4 - 4.9 g/dL 11/04/2019 14:29 [facility] Alkaline Phosphatase 67 38 - 126 U/L 11/04/2019 14:29 [facility] AST 28 15 - 46 U/L 11/04/2019 14:29 EDT [facility] ALT 27 <35 U/L 11/04/2019 14:29 EDT [facility] Bilirubin, Total 0.5 <1.4 mg/dL 11/04/19 14:29 EDT [facility] Calcium 9.4 8.5 - 10.5 mg/dL 11/04/2019 14:29 EDT [facility] Calculated Calcium 9.5 8.5 - 10.5 mg/dL 11/04/2019 14:29 EDT [facility] Blood VENOUS BLOOD / Unknown Venipuncture / Unknown 11/04/2019 13:17 EDT 11/04/2019 14:01 EDT Lobo Plata MD CHEMISTRY & BLOOD GAS ORDERABLES Performing Organization Address [facility] Co de Phone Number [facility] [address] [place] [address] * PTH INTACT (11/04/2019 13:17 EDT) Intact PTH 59 19 - 88 pg/mL 11/04/2019 15:42 EDT [facility] Blood VENOUS BLOOD / Unknown Venipuncture / Unknown 11/04/2019 13:17 EDT 11/04/2019 14:01 EDT Lobo Plata MD CHEMISTRY & BLOOD GAS ORDERABLES Performing Organization Address City/[facility]/ZIP Co de Phone Number [facility] [address] [place] [address] * METANEPHRINES, PLASMA (11/04/2019 13:17 EDT) Normetanephrine, Free 0.48 <0.90 nmol/L 11/07/2019 11:33 EDT [facility] Metanephrine, Free <0.20 <0.50 nmol/L 11/07/2019 11:33 EDT [facility] Comment: ADDITIONAL INFORMATION This test was developed and its performance characteristics determined by [facility] in a manner consistent with CLIA requirements. This test has not been cleared or approved by the U.S. Food and Drug Administration. Test Performed by: [facility] [address] [place] [address] Mailroom Supervisor: Luis Felipe Gilmore M.D. Ph.D.; CLIA# [id number] Blood VENOUS BLOOD / Unknown Venipuncture / Unknown 11/04/2019 13:17 EDT 11/04/2019 13:42 EDT Lobo Plata MD CHEMISTRY & BLOOD GAS ORDERABLES [facility] [address] [place] [address] documented in this encounter Visit Diagnoses Diagnosis Family history of type 2 MEN- Primary Family history of multiple endocrine neoplasia [MEN] syndrome documented in this encounter Discontinued Medications Medication Sig Discontinue Reason Start Date End Da te LEVOTHYROXINE SODIUM (LEVOTHYROXINE ORAL) Take by mouth. 56 mcg per day Dose adjustment 11/04/2019 documented as of this encounter Historical Medications * This list may reflect changes made after this encounter. Medication Sig Dispensed Refills Start Date End Date albuterol 90 mcg/actuation inhaler INHALE 1 TO 2 PUFFS PO EVERY 4-6 HOUTS PRN FOR WHEEZING 08/03/2019 ADVAIR HFA 230-21 mcg/actuation inhaler INL 2 PFS PO BID 09/04/2019 levothyroxine (SYNTHROID) 137 mcg tablet Take 137 mcg by mouth daily. 09/10/2019 montelukast (SINGULAIR) 10 mg tablet Take 10 mg by mouth daily. 10/28/2019 cetirizine (ZYRTEC) 10 mg tablet Take 10 mg by mouth daily. 10/28/2019 fluticasone propionate (FLONASE) 50 mcg/actuation nasal spray Instill 50 mcg into both nostrils daily. 10/28/2019 added in this encounter Care Teams Sales Utility Representative Relationship Specialty Start Date End Date Judie Potter MD [address] [place] [address] PCP - General 09/13/19 documented as of this encounter
--- OUTSIDE RECORDS SUMMARY | 2023-12-05 14:55 | XMS_ITS | Encounter Summary ---
Author Organization [facility] Address [address] [place] [address] Care Team Providers Care Project Manager/Design Manager Name Role Phone Unavailable Primary Care Provider Unavailabl e Encounter Details Date Type Department Care Team (Latest Contact Info) Description 04/03/2002 13:52 EST Hospital Encounter [facility] [address] [place] [address] Quintin Cali MD [address] [place] [address] Discharge Disposition: Auto Discharge Social History Tobacco [...] Procedure Name Priority Date/Time Associated Diagnosis Comments RAD ULTRASOUND Routine 06/18/2002 16:00 EST RAD ULTRASOUND Routine 05/15/2002 11:30 EST RAD ULTRASOUND Routine 04/03/2002 14:30 EST documented in this encounter Results * RAD ULTRASOUND (06/18/2002 16:00 EST) Anatomical Region Laterality Modality Other 06/18/2002 16:0 0 EST Narrative 12/02/2008 3:06 EDT OB U/S F/U,CLEFT LIP ??AND PALATE Please refer to the separate [facility] report. Procedure Note Dave Berrios MD - 12/02/2008 OB U/S F/U,CLEFT LIP AND PALATE Please refer to the separate [facility] report. Dave Berrios MD IM US ORDERABLE S * RAD ULTRASOUND (05/15/2002 11:30 EST) Anatomical Region Laterality Modality Other 05/15/2002 11:3 0 EST Narrative 12/15/2008 5:02 EDT OB U/S F/U,CLEFT LIP Please refer to the separate [facility] report. Procedure Note Jhon Alan MD - 12/15/2008 OB U/S F/U,CLEFT LIP Please refer to the separate [facility] report. Dave Berrios [place] [facility] [place] * RAD ULTRASOUND (04/03/2002 14:30 EST) Anatomical Region Laterality Modality Other 04/03/2002 14:3 0 EST Narrative 12/15/2008 4:54 EDT LAURA,PLACENTA PREVIA AND ECHO Please refer to the separate [facility] report. Procedure Note Dave Berrios MD - 12/15/2008 LAURA,PLACENTA PREVIA AND ECHO Please refer to the separate [facility] report. Quintin Cali MD IM US ORDERABLE S documented in this encounter Visit Diagnoses Not on filedocumented in this encounter
--- OUTSIDE RECORDS SUMMARY | 2023-12-05 14:55 | XMS_ITS | Encounter Summary ---
Author Organization [facility] Address [address] [place] [address] Care Team Providers Care Conditioner Tumbler Name Role Phone Judie Potter MD Primary Care Provider [phone] Encounter Details Date Type Department Care Team (Late st Contact Info) Description 11/04/2019 13:15 EDT Phlebotomy Only [facility] 2 Phlebotomy [address] [place], [place] [address] Warehouse Checker, Acc Phlebotomy Family history of type 2 MEN (Primary [...] as of this encounter Miscellaneous Notes * Result Encounter Note - Lobo Bonner MD - 11/04/2019 1315 EDT This only means that she will have screening targeted to the family known mutation. She screened negative for components of MEN type 2. Thyroid US was ordered, pending at this time documented in this encounter Plan of Treatment Not on file documented as of this encounter Procedures Procedure Name Priority Date/Time Associated Diagnosis Comments MISCELLANEOUS TEST, LAREDO Routine 11/04/2019 13:17 EDT Family history of type 2 MEN MISCELLANEOUS TEST, LAREDO Routine 11/04/2019 13:17 EDT Family history of type 2 MEN METANEPHRINES, PLASMA Routine 11/04/2019 13:17 EDT Family history of type 2 MEN CATECHOLAMINE FRACTIONATION, PLASMA, FREE Routine 11/04/2019 13:17 EDT Family history of type 2 MEN PTH INTACT Routine 11/04/2019 13:17 EDT Family history of type 2 MEN CALCITONIN Routine 11/04/2019 13:17 EDT Family history of type 2 MEN CEA Routine 11/04/2019 13:17 EDT Family history of type 2 MEN COMPREHENSIVE METABOLIC PANEL (CMP) Routine 11/04/2019 13:17 EDT Family history of type 2 MEN documented in this encounter Results * MISCELLANEOUS TEST RANDLE (11/04/2019 13:17 EDT) Pathologist [facility] Miscellaneous Test, [place] SEE NOTE 11/29/2019 16:23 EDT [facility] Comment: Test ?Result ?Flag ??Unit ??RefValue Familial Mutation, Targeted Testing ??Result Summary ?NEGATIVE ?Result ?SEE NOTE ?The p.V804M (c.2410G>A) alteration in the RET gene was NOT ?identified. ??Interpretation ?SEE NOTE ?Absence of the mutation previously identified in an ?affected ?family member indicates that this individual is at no ?greater risk than someone in the general population to ?develop multiple endocrine neoplasia type 2A (MEN2A) or ?familial medullary thyroid carcinoma (FMTC). ?This assay does not exclude the presence of other ?disease-causing mutations in the RET gene associated with ?MEN2A/FMTC. Errors in the information or pedigree provided ?to us, including misattributed paternity, may lead to an ?erroneous interpretation of the tests results. ?A genetic consultation may be of benefit. ?Unless reported or predicted to cause disease, alterations ?found deep in the intron or alterations that do not result ?in an amino acid substitution are not reported. These and ?common polymorphisms identified for this patient are ?available upon request. ? ADDITIONAL INFORMATION ?An online research opportunity called [employer] ?([email or web address]), a project of [employer], is available for ?the recipient of this genetic test. This patient registry ?collects de-identified genetic and health information to ?advance the knowledge of genetic variants. [facility] is a ?collaborator of [employer]. This may not be applicable for all ?tests. ?Test results should be interpreted in the context of ?clinical findings, family history, and other laboratory ?data. Misinterpretation of results may occur if the ?information provided is inaccurate or incomplete. ?Rare polymorphisms exist that could lead to false-negative ?or false-positive results. If results obtained do not match ?the clinical findings, additional testing should be ?considered. ?Bone Marrow transplants from allogenic donors will ?interfere with testing. Call [facility] for ?instructions for testing patients who have received a bone ?marrow transplant. ?One or more in silico tools were used to assist in the ?interpretation of these results. These tools are updated ?regularly and predictions for a given variant may change. ?Additionally, the predictability of these tools for the ?determination of pathogenicity is currently unvalidated. ?This test was developed and its performance characteristics ?determined by [facility] in a manner consistent with CLIA ?requirements. This test has not been cleared or approved by ?the U.S. Food and Drug Administration. ??Additional Information ?Not Reported ?Specimen ?DNA (ul) ?Source ?Not Reported ?Method ?SEE NOTE ?DNA sequence analysis was used to test for the presence of ?the p.V804M (c.2410G>A; [id number]) alteration in the RET ?gene (GenBank accession number [id number]; build GRCh37 ?(hg19)). ??Released By ? Maximilian Weaver, Ph.D. ?Test Performed by: ?[facility] ?[address] [place] [address] ?[place] Tanner: Luis Felipe Gilmore M.D. Ph.D.; CLIA# [id number] Blood VENOUS BLOOD / Unknown Venipuncture / Unknown 11/04/2019 13:17 EDT 11/14/2019 12:56 EDT Lobo Plata MD CHEMISTRY & BLOOD GAS ORDERABLES [facility] [address] [place] [address] * CEA (11/04/2019 13:17 EDT) CEA 2.7 See Note ng/mL 11/04/2019 15:05 EDT [facility] Comment: % Distribution of CEA [...] & BLOOD GAS ORDERABLES Performing Organization Address City/[facility] Co de Phone Number [facility] [address] [place] [address] * CALCITONIN (11/04/2019 13:17 EDT) Pathologist [facility] Calcitonin <5.0 <=7.6 pg/mL 11/06/2019 9:06 EDT [facility] Effective Data Comment: ADDITIONAL INFORMATION The testing method is an electrochemiluminescence assay manufactured by [employer] and performed on the Tolu system. Values obtained with different assay methods or kits may be different and cannot be used interchangeably. Test results cannot be interpreted as absolute evidence for the presence or absence of malignant disease. Test Performed by: [facility] [address] [place] [id number] [place]: Luis Felipe Gilmore M.D. Ph.D.; CLIA# [id number] Blood VENOUS BLOOD / Unknown Venipuncture / Unknown 11/04/2019 13:17 EDT 11/04/2019 13:22 EDT Lobo Plata MD CHEMISTRY & BLOOD GAS ORDERABLES Performing Organization Address [facility] Co de Phone Number [facility] Cost Effective Data [address] [place] [address] * CATECHOLAMINE FRACTIONATION, PLASMA, FREE (11/04/2019 13:17 EDT) Norepinephrine 299 pg/mL 11/07/2019 14:51 EDT [facility] Cost Effective Data Comment: REFERENCE VALUE 70-750 (Supine) 200-1700 (Standing) Epinephrine <25 pg/mL 11/07/2019 14:51 EDT [facility] Cost Effective Data Comment: REFERENCE VALUE <111 (Supine) <141 (Standing) Dopamine <25 pg/mL 11/07/2019 14:51 EDT [facility] Cost Effective Data Comment: REFERENCE VALUE <30 (no postural change) ADDITIONAL INFORMATION PLEASE NOTE: High/Low flagging is based on supine normal values. This test was developed and its performance characteristics determined by [facility] in a manner consistent with CLIA requirements. This test has not been cleared or approved by the U.S. Food and Drug Administration. Test Performed by: [facility] [address] [place] [address] [place] Tanner: Luis Felipe Gilmore M.D. Ph.D.; CLIA# [id number] Blood VENOUS BLOOD / Unknown Venipuncture / Unknown 11/04/2019 13:17 EDT 11/04/2019 13:22 EDT Lobo Plata MD CHEMISTRY & BLOOD GAS ORDERABLES [facility] [address] [place] [address] * MISCELLANEOUS TEST, LAREDO (11/04/2019 13:17 EDT) Pathologist [facility] Miscellaneous Test, [place] SEE NOTE 11/15/2019 14:[address] [facility] Comment: Test ?Result ?Flag ??Unit ??RefValue RET [...] (Randle Test ID FMTT). ?Test Performed by: ?[facility] ?[address] [place] [id number] ?[place] T[place]: Luis Felipe Gilmore M.D. Ph.D.; IA# [id number] ??Additional Information ?Not Reported ?RET Gene, Full [...] been changed to Familial Mutation, ?Targeted Test ([place] Test ID FMTT). ? Blood VENOUS BLOOD / Unknown Venipuncture / Unknown 11/04/2019 13:17 EDT 11/04/2019 13:42 EDT Lobo Plata MD CHEMISTRY & BLOOD GAS ORDERABLES [facility] [address] [place] [address] * COMPREHENSIVE METABOLIC PANEL (CMP) (11/04/2019 13:17 EDT) Sodium 140 136 - 145 mEq/L 11/04/2019 14:29 [facility] Potassium 4.4 3.5 - 5.0 mEq/L 11/04/2019 14:29 [facility] Chloride 107 96 - 110 mEq/L 11/04/2019 14:29 [facility] CO2 Total 25 22 - 32 mEq/L 11/04/2019 14:29 [facility] Glucose 89 70 - 100 mg/dL 11/04/2019 14:29 [facility] BUN 13 10 - 26 mg/dL 11/04/2019 14:29 [facility] Creatinine 0.68 0.52 - 1.04 mg/dL 11/04/2019 14:29 [facility] eGFR 108 >60 mL/min/1.7 3m2 11/04/2019 14:29 [facility] Comment:eGFR calculated jeanna narvaez CKD-EPI equation for non- Americans. Multiply eGFR by 1.16 for patients. Total Protein 6.7 6.3 - 8.2 g/dL 11/04/2019 14:29 [facility] Albumin 3.9 3.4 - 4.9 g/dL 11/04/2019 14:29 EDT [facility] Alkaline Phosphatase 67 38 - 126 U/L 11/04/2019 14:29 EDT [facility] AST 28 15 - 46 U/L 11/04/2019 14:29 EDT [facility] ALT 27 <35 U/L 11/04/2019 14:29 EDT [facility] Bilirubin, Total 0.5 <1.4 mg/dL 11/04/19 14:29 EDT [facility] Calcium 9.4 8.5 - 10.5 mg/dL 11/04/2019 14:29 EDT [facility] Calculated Calcium 9.5 8.5 - 10.5 mg/dL 11/04/2019 14:29 EDT [facility] Blood VENOUS BLOOD / Unknown Venipuncture / Unknown 11/04/2019 13:17 EDT 11/04/2019 14:01 EDT Lobo Plata MD CHEMISTRY & BLOOD GAS ORDERABLES Performing Organization Address City/[facility] Co de Phone Number [facility] [address] [place] [address] * PTH INTACT (11/04/2019 13:17 EDT) Intact PTH 59 19 - 88 pg/mL 11/04/2019 15:42 EDT [facility] Blood VENOUS BLOOD / Unknown Venipuncture / Unknown 11/04/2019 13:17 EDT 11/04/2019 14:01 EDT Lobo Plata MD CHEMISTRY & BLOOD GAS ORDERABLES [facility] [address] [place] [address] * METANEPHRINES, PLASMA (11/04/2019 13:17 EDT) Normetanephrine, Free 0.48 <0.90 nmol/L 11/07/2019 11:33 EDT [facility] Metanephrine, Free <0.20 <0.50 nmol/L 11/07/2019 11:33 EDT [facility] Comment: ADDITIONAL INFORMATION This test was developed and its performance characteristics determined by [facility] in a manner consistent with CLIA requirements. This test has not been cleared or approved by the U.S. Food and Drug Administration. Test Performed by: [facility] [address] [place] [id number] [place] Tanner: Luis Felipe Gilmore M.D. Ph.D.; CLIA# [id number] Blood VENOUS BLOOD / Unknown Venipuncture / Unknown 11/04/2019 13:17 EDT 11/04/2019 13:42 EDT Lobo Plata MD CHEMISTRY & BLOOD GAS ORDERABLES [facility] [address] [place] [address] documented in this encounter Visit Diagnoses Diagnosis Family history of type 2 MEN- Primary Family history of multiple endocrine neoplasia [MEN] syndrome documented in this encounter Care Teams Conditioner Tumbler Relationship Specialty Start Date End Date Judie Potter MD [address] [place] [address] PCP - General 09/13/19 documented as of this encounter
--- OUTSIDE RECORDS SUMMARY | 2023-12-05 14:55 | XMS_ITS | Encounter Summary ---
Author Organization [facility] Address [address] [place] [address] Care Team Providers Care Talcer Name Role Phone Unavailable Primary Care Provider Unavailabl e Encounter Details Date Type Department Care Team (Late st Contact Info) Description 05/01/2008 Before PRISM Converted Visit (Maple) [facility] Adult Primary Care - [address] [address] Unknown, Provider, Social History Tobacco Use Types Packs/Day Years Used Date Smoking Tobacco: Never Assessed Sex and Gender Information Value Date Recorded Sex Assigned at Not on file Gender Identity Female 09/13/2019 11:59 EDT Sexual Orientation Not on file documented as of this encounter Plan of Treatment Not on file documented as of this encounter Procedures Procedure Name Priority Date/Time Associated Diagnosis Comments T3, TOTAL Routine 05/01/2008 11:54 EST documented in this encounter Results * T3, TOTAL (05/01/2008 11:54 EST) T3, Total 85 60 - 181 ng/dL [facility] 05/01/2008 11:5 4 EST 05/01/2008 21:53 EST Provider Unknown CHEMISTRY & BLOOD GA S ORDERABLES [facility] [address] [place] [address] documented in this encounter Visit Diagnoses Not on filedocumented in this encounter
--- OUTSIDE RECORDS SUMMARY | 2023-12-05 14:55 | XMS_ITS | Encounter Summary ---
Author Organization [facility] Address [address] [place] [address] Care Team Providers Care Career Services Manager Name Role Phone Nakul Ye MD Primary Care Provider Un available Encounter Details Date Type Department Care Team (Late st Contact Info) Description 2002 Results Only [facility] [address] [place], [place] [address] Dave Berrios MD [address] [facility], [address] [place] [address] Social History Tobacco Use Types Packs/Day Years Used Date Smoking Tobacco: Never Assessed Sex and Gender Information Value Date Recorded Sex Assigned at Not on file Gender Identity Female 09/13/2019 11:59 EDT Sexual Orientation Not on file documented as of this encounter Plan of Treatment Not on file documented as of this encounter Procedures Procedure Name Priority Date/Time Associated Diagnosis Comments GROUP B STREPTOCOCCUS SUSCEPTIBILITY Routine 2002 15:55 EDT documented in this encounter Results * GROUP B STREPTOCOCCUS SUSCEPTIBILITY (2002 15:55 EDT) Specimen Description Vaginal and Rectal [facility] Result NO GROUP B BETA STREPTOCOCCI ISOLATED [facility] Report Status Final [id number] [facility] 2002 15:5 5 EDT 07/17/2002 8:44 EDT Dave Berrios MD HISTORICAL LAB F OR SQ LOAD Performing Organization Address City/State/[facility] Co de Phone Number [facility] [address] [place] [address] documented in this encounter Visit Diagnoses Not on filedocumented in this encounter Care Teams Career Services Manager Relationship Specialty Start Date End Date Nakul Ye MD PCP - General 09/08/08 2 documented as of this encounter
--- OUTSIDE RECORDS SUMMARY | 2023-12-05 14:55 | XMS_ITS | Encounter Summary ---
Author Organization [facility] Address [address] [place] [address] Care Team Providers Care Agricultural Produce Washer Name Role Phone Unavailable Primary Care Provider Unavailabl e Encounter Details Date Type Department Care Team (Late st Contact Info) Description 12/17/1999 12:05 EDT Hospital Encounter [facility] [address] [place] [address] Ema Cherry MD [address] [facility], [address] [place] [phone] Discharge Disposition: Auto Discharge Social History Tobacco [...] Procedure Name Priority Date/Time Associated Diagnosis Comments GLUCOSE-1HR GESTATIONAL SCREEN Routine 12/17/1999 12:09 EDT COMPLETE BLOOD COUNT Routine 12/17/1999 12:09 EDT documented in this encounter Results * GLUCOSE-1HR GESTATIONAL SCREEN (12/17/1999 12:09 EDT) Glucose-1hr Gest Scn 127 <135 mg/dl [facility] Comment: A one hour glucose greater than or equal to 135 mg/dl should be further evaluated with a formal three hour glucose tolerance test. Glucose Dose 50 g [facility] 12/17/1999 12:0 9 EDT 12/17/1999 13:40 EDT Ema Cherry MD PACKAGES & DNA PRO BE ORDERABLES Performing Organization Address [facility] Co de Phone Number [facility] [address] [place] [address] * (ABNORMAL) HEMAGRAM (12/17/1999 12:09 EDT) WBC 10.38 4.0 - 12.4 K/cmm [facility] RBC 3.55(L) 3.86 - 5.04 M/cmm [facility] Hemoglobin 10.6(L) 11.6 - 15.2 gm/dl [facility] HCT 31.3(L) 34.9 - 44.4 % [facility] MCV 88 81 - 98 fl [facility] MCH 29.8 26.7 - 33.3 pg [facility] MCHC 33.8 32.1 - 35.9 gm/dl [facility] PLT 176 141 - 320 K/cmm [facility] RDW-CV 12.8 11.7 - 14.6 % [facility] 12/17/1999 12:0 9 EDT 12/17/1999 13:40 EDT Ema Cherry MD HEMATOLOGY & PF4 O RDERABLES Performing Organization Address City/[facility] Co de Phone Number [facility] [address] [place] [address] documented in this encounter Visit Diagnoses Not on filedocumented in this encounter
--- OUTSIDE RECORDS SUMMARY | 2023-12-05 14:55 | XMS_ITS | Encounter Summary ---
Author Organization [facility] Address [address] [place] [address] Care Team Providers Care Blacktop Paver Operator Name Role Phone Unavailable Primary Care Provider Unavailabl e Encounter Details Date Type Department Care Team (Late st Contact Info) Description 01/31/2002 13:51 EST Hospital Encounter [facility] - Other [address] [place] [address] Susanna Tam MD [address] [place] [address] Unknown, Provider, Social History Tobacco Use Types [...] Priority Date/Time Associated Diagnosis Comments CYTOPATHOLOGY Routine 01/31/2002 0:00 EST documented in this encounter Results * CYTOPATHOLOGY (01/31/2002 0:00 EST) Pathology Report: CYTOPATHOLOGY REPORT Reports generated via electronic interface contain original data; however they are lacking the format of the original report. Caution should be taken when reading/interpreti ng unformatted reports. Name: ? CHANG MARINELLI ? Accession #: ? [id number] : ? 1975 (Age: 26) ??F ?Collect Date: ? 01/31/2002 Location: ? [facility] ? Receive Date: ? 02/04/2002 Provider: ?SUSANNA TAM MD Copy to: ? Specimen/Source: ?ThinPrep Pap Test, Cervix Last Menstrual Period: ? Menstrual/Pregnanc y Status: ? SPECIMEN ADEQUACY ? Satisfactory for Evaluation - transformation zone component present GENERAL CATEGORIZATION ? Negative for Intraepithelial Lesion or Malignancy INTERPRETATION ? Shift in benjamin present suggestive of bacterial vaginosis. ? Document reviewed and electronically signed by: ? Dayanara Rubio, SCT(ASCP) ? Report Date: ??02/08/2002 08:50 End of Report [facility] 01/31/2002 02/04/2002 Susanna Tam MD PATHOLOGY [facility] [address] [place] [address] documented in this encounter Visit Diagnoses Not on filedocumented in this encounter
--- OUTSIDE RECORDS SUMMARY | 2023-12-05 14:55 | XMS_ITS | Encounter Summary ---
Author Organization [facility] Address [address] [place] [address] Care Team Providers Care Tanner Rotary Drum Continuous Process Name Role Phone Unavailable Primary Care Provider Unavailabl e Encounter Details Date Type Department Care Team (Late st Contact Info) Description 01/05/2000 5:20 EDT - 01/07/2000 11:59 EDT Hospital Encounter [facility] Mother/Baby Unit [address] [place], [place] [address] Ema Cherry MD [address] [facility] [address] [place] [address] Discharge Disposition: Home-Health Care Svc Social History Tobacco Use Types Packs/Day Years Used Date Smoking Tobacco: Never Assessed Sex and Gender Information Value Date Recorded Sex Assigned at Not on file Gender Identity Female 09/13/2019 11:59 EDT Sexual Orientation Not on file documented as of this encounter Discharge Disposition Disposition Code Departure Means Destination Home-Health Care Svc documented in this encounter Plan of Treatment Not on file documented as of this encounter Procedures Procedure Name Priority Date/Time Associated Diagnosis Comments COMPLETE BLOOD COUNT Routine 01/06/2000 8:55 EDT HEMAGRAM & DIFF Routine 01/05/2000 6:00 EDT HOLD Routine 01/05/2000 6:00 EDT PTT Routine 01/05/2000 6:00 EDT PROTIME Routine 01/05/2000 6:00 EDT FIBRINOGEN Routine 01/05/2000 6:00 EDT documented in this encounter Results * (ABNORMAL) HEMAGRAM (01/06/2000 8:55 EDT) WBC 11.76 4.0 - 12.4 K/cmm [facility] RBC 3.48(L) 3.86 - 5.04 M/cmm [facility] Hemoglobin 10.3(L) 11.6 - 15.2 gm/dl [facility] HCT 30.9(L) 34.9 - 44.4 % [facility] MCV 89 81 - 98 fl [facility] MCH 29.8 26.7 - 33.3 pg [facility] MCHC 33.5 32.1 - 35.9 gm/dl [facility] PLT 172 141 - 320 K/cmm [facility] RDW-CV 13.6 11.7 - 14.6 % [facility] 01/06/2000 8:55 EDT 01/06/2000 9:09 EDT Ema Cherry MD HEMATOLOGY & PF4 O RDERABLES Performing Organization Address City/[facility] Co de Phone Number [facility] [address] [place] [address] * PTT (01/05/2000 6:00 EDT) PTT 23 23 - 33 secs [facility] Comment: Please note change in normal range effective 12/07/99 Therapeutic Heparin range: ??58-100 seconds 01/05/2000 6:00 EDT 01/05/2000 6:12 EDT Ema Cherry MD HEMATOLOGY & PF4 O RDERABLES Performing Organization Address City/[facility] Co de Phone Number [facility] [address] [place] [address] * (ABNORMAL) PROTIME (01/05/2000 6:00 EDT) Pro Time 11.6(L) 11.7 - 13.4 secs [facility] I.N.R. 0.8 0.8 - 1.2 Ratio [facility] Comment: Moderate Intensity Coumadin INR = 2.0-3.0 Adjustments in anticoagulant therapy dose should be based upon the INR and NOT the Pro Time 01/05/2000 6:00 EDT 01/05/2000 6:12 EDT Ema Cherry MD HEMATOLOGY & PF4 O RDERABLES Performing Organization Address [facility] de Phone Number [facility] [address] [place] [address] * HOLD (01/05/2000 6:00 EDT) Hold SST CHEM HOLD [facility] 01/05/2000 6:00 EDT 01/05/2000 6:12 EDT Ema Cherry MD CHEMISTRY & BLOOD GAS ORDERABLES Performing Organization Address [facility] de Phone Number [facility] [address] [place] [address] * (ABNORMAL) FIBRINOGEN (01/05/2000 6:00 EDT) Fibrinogen 551(H) 180 - 433 mg/dl [facility] 01/05/2000 6:00 EDT 01/05/2000 6:12 EDT Ema Cherry MD HEMATOLOGY & PF4 O RDERABLES Performing Organization Address [facility] Co de Phone Number [facility] [address] [place] [address] * (ABNORMAL) HEMAGRAM & DIFF (01/05/2000 6:00 EDT) WBC 16.30(H) 4.0 - 12.4 K/cmm [facility] RBC 4.05 3.86 - 5.04 M/cmm [facility] Hemoglobin 12.0 11.6 - 15.2 gm/dl [facility] HCT 35.5 34.9 - 44.4 % [facility] MCV 88 81 - 98 fl [facility] MCH 29.6 26.7 - 33.3 pg [facility] MCHC 33.8 32.1 - 35.9 gm/dl [facility] PLT 261 141 - 320 K/cmm [facility] RDW-CV 13.3 11.7 - 14.6 % [facility] % Neutrophils 81.1(H) 45.5 - 79.7 % [facility] % Lymphocytes 12.1(L) 15.0 - 46.8 % [facility] % Monocytes 6.0 1.8 - 12.0 % [facility] % Eosinophils 0.5(L) 0.6 - 6.9 % [facility] % Basophils 0.3 0.2 - 1.4 % [facility] ABS Neutrophils 13.22(H) 2.20 - 8.85 K/cmm [facility] ABS Lymphs 1.96 1.09 - 3.30 K/cmm [facility] ABS Monocytes 0.98(H) 0.1 - 0.8 K/cmm [facility] ABS Eosinophils 0.08 0.03 - 0.61 K/cmm [facility] ABS Basophils 0.05 0.01 - 0.11 K/cmm [facility] Type of Diff: Automated [facility] 01/05/2000 6:00 EDT 01/05/2000 6:12 EDT Ema Cherry MD HISTORICAL LAB FOR SQ LOAD [facility] [address] [place] [address] documented in this encounter Visit Diagnoses Not on filedocumented in this encounter
--- OUTSIDE RECORDS SUMMARY | 2023-12-05 14:55 | XMS_ITS | Encounter Summary ---
Author Organization [facility] Address [address] [place] [address] Care Team Providers Care Ecmo Specialist Name Role Phone Unavailable Primary Care Provider Unavailabl e Encounter Details Date Type Department Care Team (Late st Contact Info) Description 12/15/1999 12:31 EDT Hospital Encounter [facility] - Other [address] [place] [address] Ema Cherry MD [address] [facility], Level [address] [place] [phone] Unknown, Provider, Social History Tobacco Use Types [...] Diagnosis Comments GROUP B STREPTOCOCCUS SUSCEPTIBILITY Routine 12/15/1999 17:13 EDT documented in this encounter Results * GROUP B STREPTOCOCCUS SUSCEPTIBILITY (12/15/1999 17:13 EDT) Specimen Description Vaginal and Rectal [facility] Result NO GROUP B BETA STREPTOCOCCI ISOLATED [facility] Report Status Final [id number] [facility] 12/15/1999 17:1 3 EDT 12/15/1999 17:13 EDT Ema Cherry MD HISTORICAL LAB FOR SQ LOAD [facility] [address] [place] [address] documented in this encounter Visit Diagnoses Not on filedocumented in this encounter
--- OUTSIDE RECORDS SUMMARY | 2023-12-05 14:55 | XMS_ITS | Encounter Summary ---
Author Organization [facility] Address [address] [place] [address] Care Team Providers Care Bench Worker Helper Name Role Phone Unavailable Primary Care Provider Unavailabl e Encounter Details Date Type Department Care Team (Late st Contact Info) Description 11/17/1999 15:15 EDT Hospital Encounter [address] [address] Ema Cherry MD 111 [facility], Level [address] [place] [phone] Social History Tobacco Use Types Packs/Day Years [...]
--- OUTSIDE RECORDS SUMMARY | 2023-12-05 14:55 | XMS_ITS | Encounter Summary ---
Author Organization [facility] Address [address] [place] [address] Care Team Providers Care Centrifugal Extractor Operator Name Role Phone Reggie Camp MD Primary Care Provider [phone] Encounter Details Date Type Department Care Team (Late st Contact Info) Description 02/21/2014 Results Only [facility] - [facility] ([facility]) [address] [place], [place] [phone] Luis Felipe Mcqueen MD [address] [place] [address] [place] [address] [id number] Social History Tobacco Use Types Packs/Day Years [...] Procedure Name Priority Date/Time Associated Diagnosis Comments PAP TEST- RESULT ONLY Routine 02/21/2014 0:00 EST documented in this encounter Results * PAP TEST- RESULT ONLY (02/21/2014 0:00 EST) Pathology Report: CYTOPATHOLOGY REPORT Reports generated via electronic interface contain original data; however they are lacking the format of the original report. Caution should be taken when reading/interpreti ng unformatted reports. Name: ? CHANG MARINELLI ? Accession #: ? [id number] ? : ? 1975 (Age: 38) ??F ?Collect Date: ? 02/21/2014 ? Location: ? [facility] ? Receive Date: ? 02/25/2014 ? Provider: LUIS FELIPE MCQUEEN MD Copy to: ? Final Report SPECIMEN ADEQUACY ? Satisfactory for Evaluation - transformation zone component present GENERAL CATEGORIZATION ? Negative for Intraepithelial Lesion or Malignancy ?? Last Menstrual Period: 01/19/14 Hormonal/Contracep tive status: Tubal ligation Other: Additional clinical information: Last pap smear 2003, normal Specimen/Source: ??Pap Test, Cervix/Endocervix, ThinPrep Imaging System with manual evaluation Document reviewed and electronically signed by: ? JESSIE Pennington(ASCP) ? Report ??Date: 02/28/2014 14:03 HPV with Pap Test ? Date Ordered: ? 02/28/2014 ? Status: ?? Signed Out ?Date Complete: ? 03/04/2014 ? By: ??System Interface ? Date Reported: ? 03/04/2014 ? Interpretation RESULT: Negative for HPV. No E6 or E7 mRNA is detected from HPV types 16,18,31,33,35, 39,45,51,52,56,58, 59,66, and 68 by professor of astronomy mediated amplification. Comments Document reviewed and electronically signed by: ? System Interface ? Report date: 03/04/2014 By the signature above, the attending physician certifies that he/she has personally conducted a gross and/or microscopic examination of the described specimens and rendered or confirmed the above diagnosis. End of Report [facility] 02/21/2014 02/25/2014 Luis Felipe Mcqueen MD PATHOLOGY ORDERABLES [facility] [address] [place] [address] documented in this encounter Visit Diagnoses Not on filedocumented in this encounter Care Teams Centrifugal Extractor Operator Relationship Specialty Start Date End Date Reggie Camp MD [address] [place] [id number] PCP - General 04/29/10 09/12/19 documented as of this encounter
--- OUTSIDE RECORDS SUMMARY | 2023-12-05 14:55 | XMS_ITS | Encounter Summary ---
Author Organization [facility] Address [address] [place] [address] Care Team Providers Care Mailroom Personnel Name Role Phone Unavailable Primary Care Provider Unavailabl e Encounter Details Date Type Department Care Team (Late st Contact Info) Description 10/04/1999 18:11 EDT - 10/08/1999 11:59 EDT Hospital Encounter [facility] [address] [place], [place] [address] Ema Cherry MD 111 [facility] [address] [place] [phone] Discharge Disposition: Home or Self Care Social History Tobacco Use Types Packs/Day Years Used Date Smoking Tobacco: Never Assessed Sex and Gender Information Value Date Recorded Sex Assigned at Not on file Gender Identity Female 09/13/2019 11:59 EDT Sexual Orientation Not on file documented as of this encounter Discharge Disposition Disposition Code Departure Means Destination Home or Self Care documented in this encounter Plan of Treatment Not on file documented as of this encounter Procedures Procedure Name Priority Date/Time Associated Diagnosis Comments COMPLETE BLOOD COUNT Routine 10/08/1999 8:55 EDT CREATININE Routine 10/06/1999 8:50 EDT HEMAGRAM & DIFF Routine 10/06/1999 8:50 EDT BUN Routine 10/06/1999 8:50 EDT HEMAGRAM & DIFF Routine 10/05/1999 8:20 EDT CREATININE Routine 10/04/1999 17:00 EDT HEMAGRAM & DIFF Routine 10/04/1999 17:00 EDT URINE MICROSCOPIC Routine 10/04/1999 17: 00 EDT URINALYSIS WITH MICROSCOPIC IF POSITIVE Routine 10/04/1999 17:00 EDT TESTS ADDED BY PHONE Routine 10/04/1999 17:00 EDT BACTERIAL CULTURE, URINE Routine 10/04/1999 17:00 EDT C REACTIVE PROTEIN Routine 10/04/1999 17 :00 EDT BUN Routine 10/04/1999 17:00 EDT ELECTROLYTES Routine 10/04/1999 17:00 EDT documented in this encounter Results * (ABNORMAL) HEMAGRAM (10/08/1999 8:55 EDT) Pathologist [facility] WBC 10.46 4.0 - 12.4 K/cmm [facility] RBC 3.10(L) 3.86 - 5.04 M/cmm [facility] Hemoglobin 9.5(L) 11.6 - 15.2 gm/dl [facility] HCT 28.1(L) 34.9 - 44.4 % [facility] MCV 91 81 - 98 fl [facility] MCH 30.7 26.7 - 33.3 pg [facility] MCHC 33.8 32.1 - 35.9 gm/dl [facility] PLT 196 141 - 320 K/cmm [facility] RDW-CV 12.7 11.7 - 14.6 % [facility] 10/08/1999 8:55 EDT 10/08/1999 9:38 EDT Ema Cherry MD HEMATOLOGY & PF4 O RDERABLES Performing Organization Address City/[facility]/ZIP Co de Phone Number [facility] [address] [place] [address] * (ABNORMAL) CREATININE (10/06/1999 8:50 EDT) Creatinine 0.5(L) 0.7 - 1.5 mg/dl [facility] 10/06/1999 8:50 EDT 10/06/1999 9:00 EDT Ema Cherry MD HISTORICAL LAB FOR SQ LOAD Performing Organization Address [facility] Co de Phone Number [facility] [address] [place] [address] * (ABNORMAL) HEMAGRAM & DIFF (10/06/1999 8:50 EDT) WBC 17.63(H) 4.0 - 12.4 K/cmm [facility] RBC 3.18(L) 3.86 - 5.04 M/cmm [facility] Hemoglobin 10.0(L) 11.6 - 15.2 gm/dl [facility] HCT 28.8(L) 34.9 - 44.4 % [facility] MCV 90 81 - 98 fl [facility] MCH 31.4 26.7 - 33.3 pg [facility] MCHC 34.8 32.1 - 35.9 gm/dl [facility] PLT 168 141 - 320 K/cmm [facility] RDW-CV 12.4 11.7 - 14.6 % [facility] Neutrophils 87(H) 45.5 - 79.7 % [facility] % Bands 3 % [facility] Lymphocytes 6(L) 15.0 - 46.8 % [facility] Monocytes 4 1.8 - 12.0 % [facility] ABS Neutrophils 15.33(H) 2.20 - 8.85 K/cmm [facility] ABS Bands 0.53 K/cmm [facility] ABS Lymphs 1.06(L) 1.09 - 3.30 K/cmm [facility] ABS Monocytes 0.71 0.1 - 0.8 K/cmm [facility] RBC Morphology [facility] Type of Diff: Manual [facility] 10/06/1999 8:50 EDT 10/06/1999 9:00 EDT Ema Cherry MD HISTORICAL LAB FOR SQ LOAD Performing Organization Address [facility] de Phone Number [facility] [address] [place] [address] * (ABNORMAL) BUN (10/06/1999 8:50 EDT) Pathologist [facility] BUN 2(L) 10 - 26 mg/dl [facility] 10/06/1999 8:50 EDT 10/06/1999 9:00 EDT Ema Cherry MD CHEMISTRY & BLOOD GAS ORDERABLES Performing Organization Address [facility] de Phone Number [facility] [address] [place] [address] * (ABNORMAL) HEMAGRAM & DIFF (10/05/1999 8:20 EDT) Pathologist [facility] WBC 11.88 4.0 - 12.4 K/cmm [facility] RBC 3.24(L) 3.86 - 5.04 M/cmm [facility] Hemoglobin 10.1(L) 11.6 - 15.2 gm/dl [facility] HCT 29.4(L) 34.9 - 44.4 % [facility] MCV 91 81 - 98 fl [facility] MCH 31.1 26.7 - 33.3 pg [facility] MCHC 34.3 32.1 - 35.9 gm/dl [facility] PLT 195 141 - 320 K/cmm [facility] RDW-CV 12.7 11.7 - 14.6 % [facility] % Neutrophils 77.9 45.5 - 79.7 % [facility] % Lymphocytes 13.8(L) 15.0 - 46.8 % [facility] % Monocytes 6.5 1.8 - 12.0 % [facility] % Eosinophils 1.7 0.6 - 6.9 % [facility] % Basophils 0.1(L) 0.2 - 1.4 % [facility] ABS Neutrophils 9.26(H) 2.20 - 8.85 K/cmm [facility] ABS Lymphs 1.64 1.09 - 3.30 K/cmm [facility] ABS Monocytes 0.77 0.1 - 0.8 K/cmm [facility] ABS Eosinophils 0.20 0.03 - 0.61 K/cmm [facility] ABS Basophils 0.01 0.01 - 0.11 K/cmm [facility] Type of Diff: Automated [facility] 10/05/1999 8:20 EDT 10/05/1999 8:56 EDT Ema Cherry MD HISTORICAL LAB FOR SQ LOAD Performing Organization Address [facility] Co de Phone Number [facility] [address] [place] [address] * BACTERIAL CULTURE, URINE (10/04/1999 17:00 EDT) Specimen Description Urine [facility] Result 10,000 to 100,000 CFU/ml ENTEROCOCCU S SPECIES [facility] Report Status Final [id number] [facility] 10/04/1999 17:0 0 EDT 10/04/1999 17:17 EDT Narrative Organism Antibiotic Method Susceptibility 10,000 to 100,000 cfu/ml enterococcus species Ampicillin SUSCEPTIBILITY (ESTER) 1 Susceptible 10,000 to 100,000 cfu/ml enterococcus species Nitrofurantoin SUSCEPTIBILITY (ESTER) <=32 Susceptible 10,000 to 100,000 cfu/ml enterococcus species Ciprofloxacin SUSCEPTIBILITY (ESTER) 1 Susceptible Cole Shaffer MD MICROBIOLOGY - GENER AL ORDERABLES Performing Organization Address [facility] Co de Phone Number [facility] [address] [place] [address] * URINE MICROSCOPIC (10/04/1999 17:00 EDT) WBC, UA 10 to 50 0 - 5 /HPF [facility] RBC, UA 5 to 10 0 - 5 /HPF [facility] Squam Epithel, UA None seen NS /HPF [facility] Renal Epithel, UA None seen NS /HPF [facility] Bacteria, UA None seen NS /HPF [facility] Crystals, UA None seen /HPF [facility] Hyaline Casts, UA 10 to 50 Hyaline /LPF [facility] UA Comment Microscopic results are unreliable on urines unrefrig >2hrs or refrig >8hrs. [facility] 10/04/1999 17:0 0 EDT 10/04/1999 17:17 EDT Cole Shaffer MD URINALYSIS ORDERABLE S Performing Organization Address [facility] Co de Phone Number [facility] [address] [place] [address] * (ABNORMAL) URINALYSIS (10/04/1999 17:00 EDT) Color, UA Yellow [facility] Clarity, UA Hazy [facility] Glucose, UA Norm NORM [facility] Bilirubin, UA Neg NEG [facility] Ketones, UA Small(A) NEG [facility] Specific [place], Urine 1.010 1.005 - 1.02 [facility] Blood, UA Mod(A) NEG [facility] pH, UA 7.0 5.0 - 9.0 [facility] Protein, UA Trace(A) NEG [facility] Urobilinogen, UA Norm NORM mg/dL [facility] Nitrite, UA Neg NEG [facility] Leuk Esterase Mod(A) NEG [facility] 10/04/1999 17:0 0 EDT 10/04/1999 17:17 EDT Cole Shaffer MD URINALYSIS ORDERABLE S Performing Organization Address [facility] Co de Phone Number [facility] [address] [place] [address] * (ABNORMAL) ELECTROLYTES (10/04/1999 17:00 EDT) Sodium 138 136 - 145 mEq/L [facility] Potassium 3.8 3.5 - 5.0 mEq/L [facility] Chloride 108 96 - 110 mEq/L [facility] CO2 23(L) 24 - 30 mEq/L [facility] 10/04/1999 17:0 0 EDT 10/04/1999 17:14 EDT Cole Shaffer MD CHEMISTRY & BLOOD GA S ORDERABLES Performing Organization Address [facility] de Phone Number [facility] [address] [place] [address] * (ABNORMAL) C-REACTIVE PROTEIN (10/04/1999 17:00 EDT) C-Reactive Protein 3.9(H) <1.0 mg/dl [facility] 10/04/1999 17:0 0 EDT 10/04/1999 17:14 EDT Cole Shaffer MD CHEMISTRY & BLOOD GA S ORDERABLES Performing Organization Address [facility] de Phone Number [facility] [address] [place] [address] * (ABNORMAL) CREATININE (10/04/1999 17:00 EDT) Creatinine 0.6(L) 0.7 - 1.5 mg/dl [facility] Comment:Test added by phone 10/04/1999 17:0 0 EDT 10/04/1999 17:14 EDT Cole Shaffer MD HISTORICAL LAB FOR S Q LOAD Performing Organization Address [facility] Co de Phone Number [facility] [address] [place] [address] * (ABNORMAL) HEMAGRAM & DIFF (10/04/1999 17:00 EDT) WBC 14.48(H) 4.0 - 12.4 K/cmm [facility] RBC 3.34(L) 3.86 - 5.04 M/cmm [facility] Hemoglobin 10.3(L) 11.6 - 15.2 gm/dl [facility] HCT 30.2(L) 34.9 - 44.4 % [facility] MCV 90 81 - 98 fl [facility] MCH 30.9 26.7 - 33.3 pg [facility] MCHC 34.2 32.1 - 35.9 gm/dl [facility] PLT 196 141 - 320 K/cmm [facility] RDW-CV 12.5 11.7 - 14.6 % [facility] % Neutrophils 79.4 45.5 - 79.7 % [facility] % Lymphocytes 13.7(L) 15.0 - 46.8 % [facility] % Monocytes 6.0 1.8 - 12.0 % [facility] % Eosinophils 0.5(L) 0.6 - 6.9 % [facility] % Basophils 0.4 0.2 - 1.4 % [facility] ABS Neutrophils 11.50(H) 2.20 - 8.85 K/cmm [facility] ABS Lymphs 1.98 1.09 - 3.30 K/cmm [facility] ABS Monocytes 0.87(H) 0.1 - 0.8 K/cmm [facility] ABS Eosinophils 0.08 0.03 - 0.61 K/cmm [facility] ABS Basophils 0.06 0.01 - 0.11 K/cmm [facility] Type of Diff: Automated [facility] 10/04/1999 17:0 0 EDT 10/04/1999 17:14 EDT Cole Shaffer MD HISTORICAL LAB FOR S Q LOAD [facility] [address] [place] [address] * (ABNORMAL) BUN (10/04/1999 17:00 EDT) BUN 7(L) 10 - 26 mg/dl [facility] 10/04/1999 17:0 0 EDT 10/04/1999 17:14 EDT Cole Shaffer MD CHEMISTRY & BLOOD GA S ORDERABLES Performing Organization Address City/[facility] Co de Phone Number [facility] [address] [place] [address] * TESTS ADDED BY PHONE (10/04/1999 17:00 EDT) Tests to be added [facility] 10/04/1999 17:0 0 EDT 10/04/1999 17:14 EDT Cole Shaffer MD CHEMISTRY & BLOOD GA S ORDERABLES Performing Organization Address City/[facility] Co de Phone Number [facility] [address] [place] [address] documented in this encounter Visit Diagnoses Not on filedocumented in this encounter
--- OUTSIDE RECORDS SUMMARY | 2023-12-05 14:55 | XMS_ITS | Encounter Summary ---
Author Organization [facility] Address [address] [place] [address] Care Team Providers Care Spa Manager Name Role Phone Nakul Ye MD Primary Care Provider Un available Encounter Details Date Type Department Care Team (Late st Contact Info) Description 06/13/2003 Results Only [facility] [address] [place] [address] Unknown, Provider, Social History Tobacco Use Types [...] A,B,C PROFILE Routine 06/13/2003 10: 36 EST documented in this encounter Results * HEPATITIS A,B,C PROFILE- [facility] USE ONLY (06/13/2003 10:36 EST) Hepatitis B Surface Ag Neg [facility] Hepatitis B Surface Ab Neg [facility] Hep B Core Ab Neg [facility] Hep A Antibody Neg [facility] Hepatitis C Ab Neg [facility] 06/13/2003 10:3 6 EST 06/13/2003 21:04 EST Provider Unknown CHEMISTRY & BLOOD GA S ORDERABLES Performing Organization Address City/State/[facility] Co [place] [address] documented in this encounter Visit Diagnoses Not on filedocumented in this encounter Care Teams Spa Manager Relationship Specialty Start Date End Date Nakul Ye MD PCP - General 09/08/08 04/28/10 documented as of this encounter
--- OUTSIDE RECORDS SUMMARY | 2023-12-05 14:55 | XMS_ITS | Encounter Summary ---
Author Organization [facility] Address [address] [place] [address] Care Team Providers Care Patient Registration Rep Name Role Phone Unavailable Primary Care Provider Unavailabl e Encounter Details Date Type Department Care Team (Latest Contact Info) Description 12/21/2000 6:43 EDT - 12/21/2000 11:59 EDT Hospital Encounter [facility] - Other [address] [place] [address] Susanna Tam MD [address] [place] [address] Unknown, Provider, Discharge Disposition: Auto Discharge Social History Tobacco [...] Priority Date/Time Associated Diagnosis Comments CYTOPATHOLOGY Routine 12/21/2000 0:00 EDT documented in this encounter Results * CYTOPATHOLOGY (12/21/2000 0:00 EDT) Pathology Report: CYTOPATHOLOGY REPORT Reports generated via electronic interface contain original data; however they are lacking the format of the original report. Caution should be taken when reading/interpreti ng unformatted reports. Name: ? CHANG MARINELLI ? Accession #: ? [id number] : ? 1975 (Age: 25) ??F ?Collect Date: ? 12/21/2000 Location: ? [facility] ? Receive Date: ? 12/22/2000 Provider: ?SUSANNA TAM MD Copy to: ? Specimen/Source: ?ThinPrep Pap Test, Cervix/Endocervix Last Menstrual Period: ? Menstrual/Pregnanc y Status: ? SPECIMEN ADEQUACY ? Satisfactory for evaluation. GENERAL CATEGORIZATION ? Benign Cellular Changes DESCRIPTIVE DIAGNOSIS ? Predominance of coccobacilli present consistent with shift in vaginal benjamin. ? Document reviewed and electronically signed by: ? JESSIE Ng(ASCP) ? Report Date: ??12/26/2000 13:03 End of Report [facility] 12/21/2000 12/22/2000 Susanna Tam MD PATHOLOGY [facility] [address] [place] [address] documented in this encounter Visit Diagnoses Not on filedocumented in this encounter
--- OUTSIDE RECORDS SUMMARY | 2023-12-05 14:55 | XMS_ITS | Encounter Summary ---
Author Organization [facility] Address [address] [place] [address] Care Team Providers Care Protection Engineer Name Role Phone Reggie Camp MD Primary Care Provider [phone] Reason for Visit * Reason Onset Date Comments Follow-up 02/14/2011 Encounter Details Date Type Department Care Team (Late st Contact Info) Description 02/14/2011 Telephone [facility] Program - [address] [place] [address] Lei Loredo PA-C [address] [place] [address] [place] [address] Follow-up Social History Tobacco Use Types Packs/Day Years [...] encounter Miscellaneous Notes * Telephone Encounter - Jhon Costa - 02/14/2011 1233 EST Patience at [facility] film library notes that Jennifer did not have an MRI at their facility. She had a CT in 2006, and plain lumbar films earlier this year. I asked her to forward those studies to Efraín Loredo. documented in this encounter Plan of Treatment Not on file documented as of this encounter Visit Diagnoses Not on filedocumented in this encounter Care Teams Protection Engineer Relationship Specialty Start Date End Date Reggie Camp MD [address] [place] [id number] PCP - General 04/29/10 09/12/19 documented as of this encounter
--- OUTSIDE RECORDS SUMMARY | 2023-12-05 14:55 | XMS_ITS | Encounter Summary ---
Author Organization [facility] Address [address] [place] [address] Care Team Providers Care Con[employer]ipe [employer] Supervisor Name Role Phone Unavailable Primary Care Provider Unavailabl e Encounter Details Date Type Department Care Team (Latest Contact Info) Description 09/09/1999 11:05 EDT - 09/09/1999 11:59 EDT Hospital Encounter [facility] [address] [place] [address] Cole Shaffer MD [address] [place] [address] [phone] Discharge Disposition: Auto Discharge Social History Tobacco [...] Procedure Name Priority Date/Time Associated Diagnosis Comments PT [id number] MUTATION Routine 09/09/1999 1 4:10 EDT FACTOR 5 LEIDEN Routine 09/09/1999 14:10 EDT PROFILE ANTIPHOSPHOLIPID SYNDROME Routine 09/09/1999 14:10 EDT PROTEIN S ACTIVITY Routine 09/09/1999 14 :10 EDT PROTEIN C ACTIVITY Routine 09/09/1999 14 :10 EDT RAD US OBSTETRICAL COMPLETE Routine 09/09/1999 13:40 EDT documented in this encounter Results * (ABNORMAL) PROTEIN S ACTIVITY (09/09/1999 14:10 EDT) [facility] Protein S Activity 53(L) 72 - 148 % [facility] Comment: A. Acquired Protein S deficiencies are associated with , oral ?anticoagulants, vitamin K deficiency, L-Aspariginase treatment, ?inflammatory syndrome and acute thrombotic events. ??Acquired deficiencies ?may or may not be associated with liver disease and DIC. ??Neonates have ?slightly lower levels (compared to adults) of Protein S. ? , oral anticoagulants, vitamin K deficiency, L-Aspariginase ? treatment, inflammatory syndrome and acute thombotic events. ? Acquired deficiencies may or may not be associated with liver disease and ?DIC. ? Neonates have slightly lower levels (compared to adults) of Protein S. B. Results may be UNDERESTIMATED in this assay by the presence of activated ?Protein Resistance (APC-R) or the Factor V Leiden mutation associated with ?APC-R, or high levels of a Factor VIIa or Factor II, in the patient's ?plasma. ? Protein Resistance (APC-R) or the Factor V Leiden mutation associated with ?APC-R, ? or high levels of a Factor VIIa or Factor II, in the patient's plasma. ?? Results may be OVERESTIMATED in this assay by the presence of Lupus ?Antocoagulants (las) in the patient's plasma, or plasma heparin levels ?greater than 2.0 U/ml. ? (Las) in the patient's plasma, or plasma heparin levels greater than 2.0 ?U/ml. C. Results should be interpreted with caution under these conditions. 09/09/1999 14:1 0 EDT 09/09/1999 14:41 EDT Sommer Jain MD HEMATOLOGY & PF4 ORD [facility] [address] [place] [id number] * PT [id number] MUTATION (09/09/1999 14:10 EDT) Prothrombin Mutation Negative ??(Note) This test is performed pursuant to an agreement with ? [employer] ? 'This test was developed and its performance characteristics ? determined by Laboratory Medicine and Pathology, [facility] ? [place]. It has not been cleared or approved by the [place] ? Food and Drug Administration.' ? -- EXPECTED VALUES -- ? Negative (reported as positive ? or negative) ? A signed Special Coagulation DNA- ? Diagnostic Laboratory report will ? be provided. ? [facility] Comment (Note) This individual DOES NOT have the Prothrombin ? 68219 G->A mutation. ? Although the Prothrombin 23911 G->A mutation is absent, ? the individual may have other genetic or environmental ? risk factors for thrombosis. Consider additional ? testing for hemostatic disorders associated with increased ? thrombosis risk, if indicated. ? TEST PERFORMED OR REFERRED BY [facility] ? [facility] ? [address] ? [place], [place] ??[address] ? [facility] 09/09/1999 14:1 0 EDT 09/09/1999 14:41 EDT Sommer Jain MD HISTORICAL LAB FOR S Q LOAD Performing Organization Address City/State/[facility] Co de Phone Number [facility] [address] [place] [address] * FACTOR 5 LEIDEN (09/09/1999 14:10 EDT) Factor V Leiden Negative ??(Note) This test is performed pursuant to an agreement with ? [employer] ? 'This test was developed and its performance characteristics ? determined by [facility] Pathology, [facility] ? [place]. It has not been cleared or approved by the [place] ? Food and Drug Administration.' ? -- EXPECTED VALUES -- ? Negative (reported as positive ?or negative) ? [facility] Fact 5 Leiden Comment (Note) This individual DOES NOT have the factor V (fV) ? R506Q (Leiden) mutation. ? Although the factor V R506Q mutation is absent, the ? individual may have other genetic and environmental risk ? factors for thrombosis. Consider additional testing for ? hemostatic disorders associated with increased thrombosis ? risk, if indicated. ? TEST PERFORMED OR REFERRED BY [facility] ? [facility] ? [address] ? [place], [place] ??[address] ? [facility] 09/09/1999 14:1 0 EDT 09/09/1999 14:41 EDT Sommer Jain MD HISTORICAL LAB FOR S Q LOAD [facility] [address] [place] [address] * PROTEIN C ACTIVITY (09/09/1999 14:10 EDT) Protein C Clot 77 66 - 131 % [facility] Comment: A. Acquired protein C deficiencies are associated with ??liver disease, oral ? anticoagulants, acute thrombotic events and DIC. oral anticoagulants, acute thrombotic events and DIC. B. Results may be affected by plasma heparin levels greater than 1.0 U/ml C. Results may be affected by the presence of Lupus Anticoagulants, or factor ?VIII concentrations greater than 250%. ??Confirmation of the results by a ?functional, chromogenic assay may be useful in these circumstances ? or factor VIII concentrations greater than 250% D. Results are not affected by the presence of Activated Protein Resistance ?(APC-R) or the Factor V Leiden mutation associated with APC-R. ? Activated Protein Resistance (APC-R) or the Factor V Leiden mutation ?associated with APC-R. E. Results should be interpreted with caution under these conditions. 09/09/1999 14:1 0 EDT 09/09/1999 14:41 EDT Sommer Jain MD HEMATOLOGY & PF4 ORD [facility] Performing Organization Address City/State/[facility] Co de Phone Number [facility] [address] [place] [address] * PROFILE ANTIPHOSPHOLIPID SYNDROME (09/09/1999 14:10 EDT) Cardiolipin IgG Negative ??(Note) 'This test was developed and its performance characteristics ? determined by Laboratory Medicine and Pathology, [facility] ? [place]. It has not been cleared or approved by the [place]. ? Food and Drug Administration.' ? -- EXPECTED VALUES -- ? Negative ? Positives will be titered. ? [facility] Cardiolipin IgM Negative ??(Note) 'This test was developed and its performance characteristics ? determined by Laboratory [facility] Pathology, [facility] ? [place]. It has not been cleared or approved by the [place] ? Food and Drug Administration.' ? -- EXPECTED VALUES -- ? Negative ? Positives will be titered. ? TEST PERFORMED OR REFERRED BY [facility] ? [facility] ? [address] ? [place], [place] ??[address] ? [facility] Dilute Viper Venom 22.7 22.3 - 35.8 secs [facility] PTT 21 20 - 31 secs [facility] Comment:Therapeutic Heparin range: 58-100 seconds 09/09/1999 14:1 0 EDT 09/09/1999 14:41 EDT Sommer Jain MD PACKAGES & DNA PROBE ORDERABLES [facility] [address] [place] [address] * RAD US OBSTETRICAL COMPLETE (09/09/1999 13:40 EDT) Anatomical Region Laterality Modality Other 09/09/1999 13:4 0 EDT Impressions 01/27/2009 16:32 EST IMPRESSION: 1. Single living intrauterine gestation 22 weeks by composite ultrasound age compatible with menstrual data of 22 weeks. 2. Posterior placenta, no previa. 3. The amniotic fluid volume visually increased ODILIA approximately 75th percentile (180). 4. Three vessel cord. 5. LAURA normal. FINDINGS: There is a single living intrauterine gestation in variable lie position and presentation. The placenta is posterior, no placenta previa. Amniotic fluid is visually increased and the ODILIA of 180 is approximately at the 75th percentile. Three vessel cord. BPD: 5.3 cm 22+0 HC: 19.4 cm 21+5 AC: 17.7 cm 22+4 FEM: 3.7 cm 21+4 HUM: 3.6 cm 22+2 EFW: 502 gm CM: 4.6 mm FHR: 141 bpm US COMP AGE: 22+1 The stomach, bladder, kidneys, cord insertion, heart including four chamber and outflow tracts, intracranial contents and extremities are reasonably well seen for gestational age and appeared normal. The fetus is in a supine position for most of the examination therefore the spine was not well seen, however, no abnormalities were noted. /[facility] Narrative 01/27/2009 16:32 EST LAURA U/S FOR CPCCAINE AND TOBACCO USE, EDC 01/13/00, MFM AT 3:15 OB ULTRASOUND, 09/09/99 Procedure Note Aby Yang MD - 01/27/2009 LAURA U/S FOR CPCCAINE AND TOBACCO USE, [facility] 01/13/00, MFM AT 3:15 OB ULTRASOUND, 09/09/99 IMPRESSION IMPRESSION: 1. Single living intrauterine gestation 22 weeks by composite ultrasound age compatible with menstrual data of 22 weeks. 2. Posterior placenta, no previa. 3. The amniotic fluid volume visually increased ODILIA approximately 75th percentile (180). 4. Three vessel cord. 5. LAURA normal. FINDINGS: There is a single living intrauterine gestation in variable lie position and presentation. The placenta is posterior, no placenta previa. Amniotic fluid is visually increased and the ODILIA of 180 is approximately at the 75th percentile. Three vessel cord. BPD: 5.3 cm 22+0 HC: 19.4 cm 21+5 AC: 17.7 cm 22+4 FEM: 3.7 cm 21+4 HUM: 3.6 cm 22+2 EFW: 502 gm CM: 4.6 mm FHR: 141 bpm US COMP AGE: 22+1 The stomach, bladder, kidneys, cord insertion, heart including four chamber and outflow tracts, intracranial contents and extremities are reasonably well seen for gestational age and appeared normal. The fetus is in a supine position for most of the examination therefore the spine was not well seen, however, no abnormalities were noted. /[facility] Cole Shaffer MD IMG US ORDERABLES documented in this encounter Visit Diagnoses Not on filedocumented in this encounter
--- OUTSIDE RECORDS SUMMARY | 2023-12-05 14:55 | XMS_ITS | Encounter Summary ---
Author Organization [facility] Address [address] [place] [address] Care Team Providers Care Sports Teacher Name Role Phone Judie Potter MD Primary Care Provider Encounter Details Date Type Department Care Team (Latest Contact Info) Description 10/01/2019 Travel Social History Tobacco Use Types Packs/Day [...] have Coronavirus / COVID-19? No / Unsure 10/01/2019 11:55 EDT documented as of this encounter Plan of Treatment Not on file documented as of this encounter Visit Diagnoses Not on filedocumented in this encounter Care Teams Sports Teacher Relationship Specialty Start Date End Date Judie Potter MD [address] [place] [id number] PCP - General 09/13/19 documented as of this encounter
== END 2023-12-05 14:51 | disposition home or self-care (01) ==
LOC: NCHCN 14:50
PROVIDERS: PCP Family Medicine; Visit Provider Family Medicine
DX: Z00.00 Encounter for general adult medical examination without abnormal findings (principal)
CPT/HCPCS: 88142; 87624

== ENCOUNTER 2024-05-28 12:06 | Outpatient (REF) | payer SELFPAY ==
[2024-05-29 09:42] LABS: TSH 11.24 uIU/mL (0.36-3.74)
== END 2024-05-28 12:07 | disposition home or self-care (01) ==
LOC: NCHCN 12:06
PROVIDERS: PCP Family Medicine; Visit Provider Family Medicine
DX: N93.9 Abnormal uterine and vaginal bleeding, unspecified (principal)
CPT/HCPCS: 84443

== ENCOUNTER 2024-07-24 23:13 | Outpatient (REF) | payer SELFPAY ==
[2024-07-24 22:36] LABS: HCT 43.7 % (36.0-46.0); HGB 14.2 g/dL (11.2-15.7); MCH 31.5 pg (27.0-33.0); MCHC 32.5 % (32.0-36.0); MCV 97 fL (80-95); MPV 10.3 fL (8.0-11.0); Platelet Count 278 10^3/uL (130-400); RBC 4.51 10^6/uL (3.93-5.22); RDW 13.4 % (11.7-14.6); RDW-SD 48.1 fL; WBC 9.88 10^3/uL (4.4-10.8)
== END 2024-07-24 23:14 | disposition home or self-care (01) ==
LOC: NCHCN 23:13
PROVIDERS: PCP Family Medicine; Visit Provider Family Medicine
DX: E03.9 Hypothyroidism, unspecified (principal); N93.9 Abnormal uterine and vaginal bleeding, unspecified
CPT/HCPCS: 85027; 84443